=== PATIENT | male | born 1930 | race Caucasian/White ===

== ENCOUNTER 2018-07-09 11:35 | Emergency (ER) | payer MEDICARE ==
[2018-07-09] MEDS ORDERED: Albuterol/Ipratropium NEB.SOL* Albuterol 2.5 MG/Ipratropium 0.5 MG 3 ML INH ONE (11:49)
[2018-07-09 12:14] LABS: Hematocrit 47 % (42-52); Hemoglobin 15.4 g/dL (14.0-18.0); Mean Corpuscular HGB Conc 33 g/dL (31-36); Mean Corpuscular Hemoglobin 32 pg (27-31); Mean Corpuscular Volume 95 fL (80-94); Mean Platelet Volume 7.9 fL (7.4-10.4); Platelet Count 337 10^3/uL (150-450); Red Blood Count 4.89 10^6 /uL (4.18-5.48); Red Cell Distribution Width 14 % (10.5-15)
[2018-07-09 12:19] LABS: INR 1.05 (0.82-1.09)
[2018-07-09 12:34] LABS: Albumin 3.7 g/dL (3.2-5.2); Albumin/Globulin Ratio 1.2 (1-3); BUN/Creatinine Ratio 20.8 (8-20); C Reactive Protein 17.31 mg/L (<8.01); Calcium 9.8 mg/dL (8.6-10.3); EGFR African American 46.9 (>60); EGFR Non-African American 38.8 (>60); Globulin 3.2 g/dL (2-4); Potassium 4.4 mmol/L (3.5-5.0); Total Bilirubin 0.6 mg/dL (0.2-1.0); Total Protein 6.9 g/dL (6.4-8.9)
[2018-07-09 12:35] LABS: Troponin I 0.03 ng/mL (<0.04)
[2018-07-09 12:39] LABS: ABS Lymphocytes 0.6 10^3/ul (1.0-4.8); ABS Monocytes 0.3 10^3/ul (0-0.8); ABS Neutrophils 6.1 10^3/ul (1.5-7.7); Eosinophil % 0.3 %
--- NOTE | 2018-07-09 14:29 | ED ---
Shortness of Breath - HPI Summary HPI Summary: Patient is an 88-year-old male presenting to the ED with shortness of breath. He states he's been feeling this way for approximately 2 months. He had an appointment with Dr. Priest this afternoon, however was unable to make it into the room. EMS stated on arrival, he was outside with O2 in place. Patient had collapsed before walking into the office. He states he has been feeling short of breath for several months now. Denies hx of COPD, but has smoked x 65 years until 2 mos ago. States at rest, he denies SOB, but when ambulating, he is unable to walk more than a few steps. Denies CP. Denies abd pain, n/v/c/d. Denies DE OLIVEIRA, visual changes or appetite changes. PO intake good. - History of Current Complaint Chief Complaint: EDRespiratoryDistress Time Seen by Provider: 07/09/18 11:38 Hx Obtained From: Patient Onset/Duration: Sudden Onset Timing: Constant Current Severity: Severe Dyspnea At: Exertion Alleviating Factors: Oxygen - Risk Factors Pulmonary Embolism: Smoking Cardiac: Elevated lipids, Hypertension Pseudomonas: Negative Tuberculosis: Negative - Allergy/Home Medications Allergies/Adverse Reactions: Allergies Allergy/AdvReac Type Severity Reaction Status Date / Time No Known Allergies Allergy Verified 12/19/11 15:38 Home Medications: Home Medications Latanoprost 0.005%* [Xalatan 0.005%*] 1 drop BOTH EYES QPM 07/09/18 [History Confirmed 07/09/18] PMH/Surg Hx/FS Hx/Imm Hx Previously Healthy: Yes Endocrine/Hematology History: Denies: Hx Diabetes, Hx Thyroid Disease Cardiovascular History: Denies: Hx Congestive Heart Failure, Hx Hypertension Respiratory History: Reports: Hx Chronic Obstructive Pulmonary Disease (COPD) - He has smoked about 60 years up to 1ppd. Denies: Hx Asthma, Other Respiratory Problems/Disorders GI History: Denies: Hx Ulcer History: Reports: Hx Renal Disease, Other Problems/Disorders - prostatectomy Denies: Hx Dialysis Musculoskeletal History: Reports: Other Musculoskeletal History - BROKE BACK 50 YEARS AGO Sensory History: Reports: Hx Contacts or Glasses, Hx Glaucoma - ON MEDS Denies: Hx Hearing Aid Opthamlomology History: Reports: Hx Contacts or Glasses, Hx Glaucoma - ON MEDS Neurological History: Denies: Hx Dementia, Hx Migraine, Hx Seizures, Hx Transient Ischemic Attacks (TIA) Psychiatric History: Denies: Hx Anxiety, Hx Depression, Hx Schizophrenia, Hx Bipolar Disorder - Cancer History Cancer Type, Location and Year: prostate. neck area - removed - Surgical History Surgery Procedure, Year, and Place: [place] [facility] [place] [facility] [place] [facility] Hx Anesthesia Reactions: No - Immunization History Hx Pertussis Vaccination: No Immunizations Up to Date: Yes Infectious Disease History: No Infectious Disease History: Denies: Hx Hepatitis, Hx Human Immunodeficiency Virus (HIV), Traveled Outside the US in Last 30 Days - Social History Occupation: Unemployed Lives: With Family Alcohol Use: Rare Hx Substance Use: No Substance Use Type: Reports: None Hx Tobacco Use: Yes Smoking Status (MU): Current Every Day Smoker Amount Used/How Often: 1/2 ppd. Review of Systems Negative: Fever, Chills, Fatigue, Skin Diaphoresis Negative: Palpitations, Chest Pain Positive: Shortness Of Breath. Negative: Cough Genitourinary: Negative Positive: no symptoms reported, see HPI Negative: Arthralgia, Myalgia Skin: Negative All Other Systems Reviewed And Are Negative: Yes Physical Exam Triage Information Reviewed: Yes Vital Signs On Initial Exam: Initial Vitals Temp Pulse Resp BP Pulse Ox 97.6 F 102 20 123/95 98 07/09/18 11:44 07/09/18 11:44 07/09/18 11:44 07/09/18 11:44 07/09/18 11:44 Vital Signs Reviewed: Yes Appearance: Positive: Well-Appearing, Well-Nourished Skin: Positive: Skin Color Reflects Adequate Perfusion Head/Face: Positive: Normal Head/Face Inspection Neck: Positive: No Lymphadenopathy Respiratory/Lung Sounds: Positive: Decreased Breath Sounds Cardiovascular: Positive: Tachycardia Musculoskeletal: Positive: Strength/ROM Intact Neurological: Positive: Alert, Oriented to Person Place, Time Psychiatric: Positive: Normal Diagnostics - Vital Signs Vital Signs Temp Pulse Resp BP Pulse Ox 07/09/18 14:00 101 19 98 07/09/18 13:48 115 19 130/79 83 07/09/18 13:18 107 27 125/72 99 07/09/18 13:00 100 29 97 07/09/18 12:48 102 20 104/60 95 07/09/18 12:07 108 24 98 07/09/18 12:05 107 20 07/09/18 12:04 93 21 96 07/09/18 11:53 100 07/09/18 11:47 101 18 123/95 96 07/09/18 11:44 97.6 F 102 20 123/95 98 - Laboratory Lab Results: Lab Results 07/09/18 07/09/18 07/09/18 Range/Units 11:59 11:59 11:59 WBC 7.0 (3.5-10.8) 10^3/uL RBC 4.89 (4.18-5.48) 10^6 /uL Hgb 15.4 (14.0-18.0) g/dL Hct 47 (42-52) % MCV 95 H (80-94) fL MCH 32 H (27-31) pg MCHC 33 (31-36) g/dL RDW 14 (10.5-15) % Plt Count 337 (150-450) 10^3/uL MPV 7.9 (7.4-10.4) fL Neut % (Auto) 86.7 % Lymph % (Auto) 8.0 % [place] % (Auto) 4.8 % Eos % (Auto) 0.3 % Baso % (Auto) 0.2 % Absolute Neuts (auto) 6.1 (1.5-7.7) 10^3/ul Absolute Lymphs (auto) 0.6 L (1.0-4.8) 10^3/ul Absolute Monos (auto) 0.3 (0-0.8) 10^3/ul Absolute Eos (auto) 0.0 (0-0.6) 10^3/ul Absolute Basos (auto) 0.0 (0-0.2) 10^3/ul Absolute Nucleated RBC 0.0 10^3/ul Nucleated RBC % 0.0 INR (Anticoag Therapy) 1.05 (0.82-1.09) ABG pH (7.35-7.45) ABG pCO2 (35-45) mmHg ABG pO2 (80-100) mmHg ABG HCO3 (19-31) mmol/L ABG O2 Saturation (94.0-98.0) % ABG Base Excess (-2.0-2.0) mmol/L Sodium 142 (135-145) mmol/L Potassium 4.4 (3.5-5.0) mmol/L Chloride 106 (101-111) mmol/L Carbon Dioxide 26 (22-32) mmol/L Anion Gap 10 (2-11) mmol/L BUN 35 H (6-24) mg/dL Creatinine 1.68 H (0.67-1.17) mg/dL Est GFR ( Amer) 46.9 (>60) Est GFR (Non-Af Amer) 38.8 (>60) BUN/Creatinine Ratio 20.8 H (8-20) Glucose 110 H (70-100) mg/dL Lactic Acid (0.5-2.0) mmol/L Calcium 9.8 (8.6-10.3) mg/dL Total Bilirubin 0.60 (0.2-1.0) mg/dL AST 15 (13-39) U/L ALT 9 (7-52) U/L Alkaline Phosphatase 128 H (34-104) U/L Troponin I 0.03 (<0.04) ng/mL C-Reactive Protein 17.31 H (<8.01) mg/L Total Protein 6.9 (6.4-8.9) g/dL Albumin 3.7 (3.2-5.2) g/dL Globulin 3.2 (2-4) g/dL Albumin/Globulin Ratio 1.2 (1-3) 07/09/18 07/09/18 Range/Units 11:59 12:00 WBC (3.5-10.8) 10^3/uL RBC (4.18-5.48) 10^6 /uL Hgb (14.0-18.0) g/dL Hct (42-52) % MCV (80-94) fL MCH (27-31) pg MCHC (31-36) g/dL RDW (10.5-15) % Plt Count (150-450) 10^3/uL MPV (7.4-10.4) fL Neut % (Auto) % Lymph % (Auto) % [place] % (Auto) % Eos % (Auto) % Baso % (Auto) % Absolute Neuts (auto) (1.5-7.7) 10^3/ul Absolute Lymphs (auto) (1.0-4.8) 10^3/ul Absolute Monos (auto) (0-0.8) 10^3/ul Absolute Eos (auto) (0-0.6) 10^3/ul Absolute Basos (auto) (0-0.2) 10^3/ul Absolute Nucleated RBC 10^3/ul Nucleated RBC % INR (Anticoag Therapy) (0.82-1.09) ABG pH 7.37 (7.35-7.45) ABG pCO2 46 H (35-45) mmHg ABG pO2 64 L (80-100) mmHg ABG HCO3 25.4 (19-31) mmol/L ABG O2 Saturation 93.4 L (94.0-98.0) % ABG Base Excess 0.8 (-2.0-2.0) mmol/L Sodium (135-145) mmol/L Potassium (3.5-5.0) mmol/L Chloride (101-111) mmol/L Carbon Dioxide (22-32) mmol/L Anion Gap (2-11) mmol/L BUN (6-24) mg/dL Creatinine (0.67-1.17) mg/dL Est GFR ( Amer) (>60) Est GFR (Non-Af Amer) (>60) BUN/Creatinine Ratio (8-20) Glucose (70-100) mg/dL Lactic Acid 2.3 H* (0.5-2.0) mmol/L Calcium (8.6-10.3) mg/dL Total Bilirubin (0.2-1.0) mg/dL AST (13-39) U/L ALT (7-52) U/L Alkaline Phosphatase (34-104) U/L Troponin I (<0.04) ng/mL C-Reactive Protein (<8.01) mg/L Total Protein (6.4-8.9) g/dL Albumin (3.2-5.2) g/dL Globulin (2-4) g/dL Albumin/Globulin Ratio (1-3) Result Diagrams: 07/09/18 11:59 07/09/18 11:59 Lab Statement: Any lab studies that have been ordered have been reviewed, and results considered in the medical decision making process. Course/Dx - Course Course Of Treatment: During the course, the patient is evaluated for SOB. He appears SOB and cachetic. VS 92, 22 resp, 98% on RA, 136/75. On ambulation, patient drops to 86% within 5-6 steps and is unable to continue. Labs WNL. Discussed with the patient he will need to be admitted for O2 demand. He declines. He states he will sign out AMA. Discussed with patient at length the severity of his SOB. He continues to decline and AMA paperwork is signed. Called Dr. Muhammad (PCP) to request an O2 tank and evalution of need. He states his office will take care of this. - Diagnoses Provider Diagnoses: Shortness of breath Discharge - Sign-Out/Discharge Documenting (check all that apply): Patient Departure Patient Received Moderate/Deep Sedation with Procedure: No - Discharge Plan Condition: Fair Disposition: AGAINST MEDICAL ADVICE Referrals: David Priest MD [Primary Care Provider] - - Billing Disposition and Condition Condition: FAIR Disposition: Against Medical Advice
[2018-07-09 15:19] VITALS: BP 125/76
== END 2018-07-09 15:15 | disposition left against medical advice (07) ==
LOC: ED 11:35
DX: J44.1 Chronic obstructive pulmonary disease with (acute) exacerbation (principal); F17.210 Nicotine dependence, cigarettes, uncomplicated; R94.31 Abnormal electrocardiogram [ECG] [EKG]
CPT/HCPCS: 36415; 71045; 80053; 82803; 83605; 84153; 84484; 85025; 85610; 86140; 87040; 93005; 99283; A9270-GY; G0103

== ENCOUNTER 2018-07-09 15:51 | Inpatient (IN) | payer MEDICARE ==
[2018-07-09] MEDS ORDERED: NS 0.9% 1000 ML** 1,000 ML IV ONE (16:55)
[2018-07-09] MEDS ORDERED: Albuterol HFA INHALER* 8 gm MDI INH PRN (17:57)
[2018-07-09] MEDS ORDERED: Albuterol/Ipratropium NEB.SOL* Albuterol 2.5 MG/Ipratropium 0.5 MG 3 ML INH PRN (17:58)
[2018-07-09] MEDS ORDERED: Enoxaparin(*) 40 MG/0.4 ML SYR SUBCUT SCH (18:00)
[2018-07-09] MEDS ORDERED: Iodixanol* (CONTRAST) 320 MG/ML 100 ML SDV IV ONE (18:17)
--- NOTE | 2018-07-09 18:19 | ED ---
Shortness of Breath - HPI Summary HPI Summary: Patient is an 88 year old male [facility] with a chief complaint of SOB on exertion. The pt was previously at [facility] today for SOB and was discharged per refusal to be admitted. He returned to [facility] later today claiming that he was hypoxic on ambulation and needed to be admitted to [facility]. Pt states that he also has back pain. Pt denies CP. The pt reports that he has no alleviating factors. Pt has a history of COPD and has smoked for 60 years up to 1 ppd. - History of Current Complaint Chief Complaint: EDShortnessOfBreath Hx Obtained From: Patient Onset/Duration: Sudden Onset, Lasting Hours Timing: Constant Current Severity: Severe Dyspnea At: Exertion - ambulation Aggrevating Factors: Movement Alleviating Factors: Nothing Associated Signs & Symptoms: Negative - Chest pain Related History: Similar Episode - previous visit on 07/09/18 - Allergy/Home Medications Allergies/Adverse Reactions: Allergies Allergy/AdvReac Type Severity Reaction Status Date / Time No Known Allergies Allergy Verified 12/19/11 15:38 PMH/Surg Hx/FS Hx/Imm Hx Previously Healthy: No Endocrine/Hematology History: Denies: Hx Diabetes, Hx Thyroid Disease Cardiovascular History: Denies: Hx Congestive Heart Failure, Hx Hypertension Respiratory History: Reports: Hx Chronic Obstructive Pulmonary Disease (COPD) - He has smoked about 60 years up to 1ppd. Denies: Hx Asthma, Other Respiratory Problems/Disorders GI History: Denies: Hx Ulcer History: Reports: Hx Renal Disease, Other Problems/Disorders - prostatectomy Denies: Hx Dialysis Musculoskeletal History: Reports: Other Musculoskeletal History - BROKE BACK 50 YEARS AGO Sensory History: Reports: Hx Contacts or Glasses, Hx Glaucoma - ON MEDS Denies: Hx Hearing Aid Opthamlomology History: Reports: Hx Contacts or Glasses, Hx Glaucoma - ON MEDS Neurological History: Denies: Hx Dementia, Hx Migraine, Hx Seizures, Hx Transient Ischemic Attacks (TIA) Psychiatric History: Denies: Hx Anxiety, Hx Depression, Hx Schizophrenia, Hx Bipolar Disorder - Cancer History Cancer Type, Location and Year: prostate. neck area - removed - Surgical History Surgery Procedure, Year, and Place: LEFT NEPHRECTOMY, , [facility] [place]. CYST FROM NECK, 2004, [facility]. BOWEL OBSTRUCTION, [facility] Hx Anesthesia Reactions: No Infectious Disease History: No Infectious Disease History: Denies: Hx Hepatitis, Hx Human Immunodeficiency Virus (HIV), Traveled Outside the [place] in Last 30 Days - Social History Alcohol Use: Rare Hx Substance Use: No Substance Use Type: Reports: None Hx Tobacco Use: Yes Smoking Status (MU): Former Smoker Amount Used/How Often: 1/2 ppd. Review of Systems Negative: Chest Pain Positive: Shortness Of Breath All Other Systems Reviewed And Are Negative: Yes Physical Exam - Summary Physical Exam Summary: Constitutional: Well-developed, Well-nourished, Alert. (-) Distressed Skin: Warm, Dry, Pressure ulcers on spine stage 2 HENT: Normocephalic; Atraumatic Eyes: Conjunctiva normal Neck: Musculoskeletal ROM normal neck. (-) JVD, (-) Stridor, (-) Tracheal deviation Cardio: Rhythm regular, rate normal, Heart sounds normal; Intact distal pulses; The pedal pulses are 2+ and symmetric. Radial pulses are 2+ and symmetric. (-) Murmur Pulmonary/Chest wall: Effort normal. (-) Respiratory distress, (-) Wheezes, (-) Rales, Lungs are clear to auscultation Abd: Soft, (-) tenderness, (-) Distension, (-) Guarding, (-) Rebound Musculoskeletal: (-) Edema Lymph: (-) Cervical adenopathy Neuro: Alert, Oriented x3 Psych: Cachectic Triage Information Reviewed: Yes Vital Signs On Initial Exam: Initial Vitals Temp Pulse Resp BP Pulse Ox 97.7 F 125 18 88/42 100 07/09/18 16:01 07/09/18 16:01 07/09/18 16:01 07/09/18 16:01 07/09/18 16:01 Vital Signs Reviewed: Yes Diagnostics - Vital Signs Vital Signs Temp Pulse Resp BP Pulse Ox 07/09/18 17:49 91 16 94 07/09/18 17:33 102 21 109/62 94 07/09/18 17:25 108 36 93 07/09/18 17:03 96 56 105/67 100 07/09/18 16:55 100 16 98 07/09/18 16:33 104 58 99/58 100 07/09/18 16:25 100 21 100 07/09/18 16:01 97.7 F 125 18 88/42 100 - Laboratory Lab Statement: Any lab studies that have been ordered have been reviewed, and results considered in the medical decision making process. Course/Dx - Course Course Of Treatment: Patient is an 88 year old male presenting to [facility] with a chief complaint of SOB on exertion. The pt was previously at [facility] today for SOB and was discharged per refusal to be admitted. He returned to [facility] later today claiming that he was hypoxic on ambulation and needed to be admitted to [facility]. The pt received the following medications: sodium chloride 1000 mls. Pt will be admitted to [facility] with a Dx of COPD exacerbation and failure to thrive. - Diagnoses Provider Diagnoses: COPD exacerbation, Failure to thrive Discharge - Sign-Out/Discharge Documenting (check all that apply): Patient Departure - admit Patient Received Moderate/Deep Sedation with Procedure: No - Discharge Plan Condition: Stable Disposition: ADMITTED TO [facility] - Billing Disposition and Condition Condition: STABLE Disposition: Admitted to [facility] - Attestation Statements Document Initiated by Huhg: Yes Documenting Scribe: Andi Montgomery Provider For Whom Hugh is Documenting (Include Credential): Maria Luz Wilson MD Scribe Attestation: Andi Jurado scribed for Maria Luz Mohr MD on 07/09/18 at 1831. Scribe Documentation Reviewed: Yes Provider Attestation: The documentation as recorded by the Andi antonio accurately reflects the service I personally performed and the decisions made by , Maria Luz Mohr MD Status of Scribe Document: Viewed
--- NOTE | 2018-07-09 19:18 | HP ---
CC: Dr. Priest; Dr. Prather; Dr. Casas* HISTORY AND PHYSICAL: DATE OF ADMISSION: 07/09/18 PRIMARY CARE PROVIDER: Dr. Priest. OTHER PROVIDERS: Dr. Prather, Dr. Casas. ATTENDING PHYSICIAN: Dr. Chen* (dictated by KAYLA Mcclellan). CHIEF COMPLAINT: Shortness of breath, sent from PCP. HISTORY OF PRESENT ILLNESS: Mr. Sherman is an 88-year-old male with a past medical history of COPD, chronic kidney disease, history of renal cell carcinoma , history of prostate cancer, who presented to the ER today with shortness of breath. He notes that he typically has shortness of breath, but today he has had impacted activity due to shortness of breath. He states he can only walk with assistance or support. He is noted to desaturate with ambulation. He denies loss of consciousness, but continues to complain of shortness of breath. He notes that shortness of breath is the only element that is limiting his activity. Typically, he requires no oxygen. The patient also notes possible weight loss of approximately 10 pounds in the last approximately 3 weeks. He also notes pain in the low back. He denies chest pain, abdominal pain, pain in the extremities. He denies recent fall. He denies hemoptysis, cough, hematuria , hematochezia, melena. He denies fever. He denies dysphagia. While in the emergency department, the patient received DuoNeb and 1 L bolus of normal saline. The hospitalist team was asked to evaluate the patient for admission. PAST MEDICAL HISTORY: 1. COPD. 2. Chronic kidney disease, stage 3. 3. History of renal cell carcinoma, status post nephrectomy, splenectomy, left eleventh rib removal - the patient follows with Dr. Prather. 4. History of prostate cancer, status post prostatectomy - the patient follows with Dr. Prather. 5. Glaucoma. PAST SURGICAL HISTORY: Left kidney, splenectomy, left eleventh rib in 2012; left neck cyst in 2013. HOME MEDICATIONS: 1. Albuterol HFA inhaler 2 puffs inhalation q.4 hours p.r.n. shortness of breath/wheeze. 2. Latanoprost 0.005% one drop to both eyes q.p.m. 3. Multivitamin/minerals 1 tab p.o. daily. 4. Pilocarpine 5 mg p.o. t.i.d. 5. Travoprost Z 0.004% ophthalmic 1 drop to both eyes daily. The patient uses either latanoprost or travoprost depending on what is available. DRUG ALLERGIES: No known drug allergies. FAMILY HISTORY: Negative for heart disease, diabetes mellitus, CVA, cancer. SOCIAL HISTORY: The patient states that he quit smoking 3 to 4 months ago. Prior to that, he smoked approximately half-a-pack a day for 68 years. He rarely uses alcohol, last used New Year's Melanie. 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 He lives alone. In the event that he is unable to make his own medical decisions, he has appointed his friend, Maxim Rivas, to be his surrogate decision maker. REVIEW OF SYSTEMS: A 10-point review of systems was performed and all the pertinent positives and negatives are in the HPI. All other systems are negative. PHYSICAL EXAMINATION GENERAL: Mr. Sherman is a thin, cachectic looking, 88-year-old elderly white male , who is sitting up in bed. He is very thin with a BMI of 15.3. He appears chronically ill. VITAL SIGNS: Temperature 97.7 temporal, heart rate 83, respiratory rate 16, oxygen saturation 94% on room air, blood pressure 109/62. HEENT: PERRL. EOMI. Sclerae are anicteric. Hearing is grossly intact. Oral mucous membranes are dry. There are no lesions in the pharynx or oral mucosa. NECK: No lymphadenopathy. RESPIRATORY: Symmetrical chest expansion without use of accessory muscles. Lung escobar somewhat diminished. There are no wheezes, rhonchi, or rales. CARDIOVASCULAR: Regular rate and rhythm with S1, S2 present. There are no murmurs, rubs, clicks, or gallops. There is no JVD. ABDOMEN: Flat. The patient is very thin. Bowel sounds noted in all quadrants. Abdomen is soft and nontender to palpation. There is no hepatosplenomegaly. MUSCULOSKELETAL: Full range of motion noted. The spinous processes are protruding. They are erythematous due to pressure. There appears to be some breakdown on one of the lumbar spinous processes without opening or discharge. EXTREMITIES: Skin is dry. There is no clubbing. Distal digits are cyanotic. Radial and pedal pulses are palpable. NEURO: The patient is awake. He is alert and oriented x3. He is able to move all of his extremities. DIAGNOSTIC STUDIES/LAB DATA: Chest x-ray, 07/09/18, impression: Hyperinflated lung escobar with progressive chronic interstitial disease and likely bronchiectasis. Laboratory Data: ABG, pO2 of 64. BUN 35, creatinine 1.68, GFR 38.8, lactic acid 2.3. Alk phos 128. ASSESSMENT AND PLAN: Mr. Sherman is an 88-year-old male with a past medical history of renal and prostate cancer, chronic obstructive pulmonary disease, chronic kidney disease, who presents to the ER today with complaints of worsening shortness of breath starting today. The patient will be admitted to observation for: 1. Shortness of breath. The patient notes shortness of breath particularly with activity starting today. He was sent from his primary care provider's office. He does have a history of chronic obstructive pulmonary disease. His breath sounds are clear, although diminished. There is a question whether or not the patient has a pulmonary embolism. The patient will be given Mucomyst for nephro protection prior to CTA of the chest. DuoNebs have been ordered. 2. History of cancer. The patient follows up with Dr. Prather. He notes that his last followup was approximately 4 months ago. We will check a PSA today. 3. Glaucoma. Continue eye drops and pilocarpine. 4. Code status: Full code. 5. FEN: Regular diet. IV fluids at 125 cc per hour. 6. Tobacco abuse. The patient notes that he recently quit using tobacco approximately 3 to 4 months ago. He requests nicotine patches. These will be ordered. 7. DVT prophylaxis: According to the DVT Risk Assessment, the patient scores 3 and is placed at high risk. He will be placed on heparin q.12 hours. TIME SPENT: Approximately 60 minutes was spent on this admission, greater than half that time was spent with the patient obtaining history, performing physical , and reviewing the plan of care. The case has been reviewed with my attending, Dr. Chen, who is in agreement with the plan of care. KAYLA JOHNSON [id number]/[facility] #: [id number] CAR[place]
[2018-07-09] MEDS: Acetylcysteine CAP (RENAL)* 600 MG PO SCH ×2 (20:03→22:51)
[2018-07-09] MEDS: Heparin VIAL(*) 5000 UNITS/ML VIAL (FIVE THOUSAND) SUBCUT SCH (20:13)
[2018-07-09] MEDS: Nicotine PATCH 21 MG/24 HR* PATCH TRANSDERM SCH (20:13)
[2018-07-09] MEDS: PILOCARPINE 5 MG PO SCH (23:03)
[2018-07-09] MEDS: Latanoprost 0.005%* 2.5 ml BTL BOTH EYES SCH (23:04)
[2018-07-10 05:49] LABS: BUN/Creatinine Ratio 23.8 (8-20); Calcium 8.8 mg/dL (8.6-10.3); EGFR African American 45.6 (>60); EGFR Non-African American 37.7 (>60); Potassium 4.5 mmol/L (3.5-5.0)
[2018-07-10] MEDS: Nicotine Patch Removal NOTE PATCH OFF SCH ×2 (05:54→21:25)
--- NOTE | 2018-07-10 07:23 | PN ---
Subjective Date of Service: 07/10/18 Interval History: Resting in bed on assessment with 2L supplemental oxygen in place. Occasional moist cough noted. Reports shortness of breath with rest and exertion. Reports talking also makes him sob, but if he takes it slow he can tolerated it well. Reports occasional productive cough with clear sputum. Denies cp, palpitations, fever, chills. Objective Active Medications: Acetylcysteine (Acetylcysteine Cap (Renal)*) 1,200 mg PO BID [facility] Stop: 07/11/18 21:01 Albuterol (Ventolin Hfa Inhaler*) 2 puff INH Q4H PRN PRN Reason: SOB/WHEEZING Albuterol/Ipratropium (Duoneb (Albuterol 2.5 Mg/Ipratropium 0.5 Mg)) 1 neb INH Q4H PRN PRN Reason: SOB/WHEEZING Heparin Sodium (Porcine) (Heparin Vial(*)) 5,000 units SUBCUT Q12HR [facility] Last Admin: 07/09/18 20:13 Dose: 5,000 units Latanoprost (Xalatan 0.005%*) 1 drop BOTH EYES QPM [facility] Last Admin: 07/09/18 23:04 Dose: 1 drop Multivitamins/Minerals (Theragran/Minerals Tab*) 1 tab PO DAILY [facility] Nicotine (Nicotine Patch 21 Mg/24 Hr*) 1 patch TRANSDERM DAILY [facility] Last Admin: 07/09/18 20:13 Dose: 1 patch Pharmacy Profile Note (Nicotine Patch Removal Note*) 1 note PATCH OFF 2100 [facility] Last Admin: 07/10/18 05:54 Dose: 1 note Pilocarpine HCl (Salagen(Nf)) 5 mg PO TID [facility]; Protocol Last Admin: 07/09/18 23:03 Dose: Not Given Vital Signs - 8 hr 07/10/18 03:45 Temperature 97.7 F Pulse Rate 114 Respiratory 22 Rate Blood Pressure 151/61 (mmHg) O2 Sat by Pulse 90 Oximetry Oxygen Devices in Use Now: Nasal Cannula Appearance: Comfortable, NAD Eyes: No Scleral Icterus Ears/Nose/Mouth/Throat: Clear Oropharnyx, Mucous Membranes Moist Neck: NL Appearance and Movements; NL JVP Respiratory: Symmetrical Chest Expansion and Respiratory Effort, - - Moderately diminished Cardiovascular: NL Sounds; No Murmurs; No JVD, RRR, No Edema Abdominal: NL Sounds; No Tenderness; No Distention Lymphatic: No Cervical Adenopathy Skin: No Rash or Ulcers Neurological: Alert and Oriented x 3 Nutrition: Taking PO's Result Diagrams: 07/10/18 07:41 07/10/18 05:28 Additional Lab and Data: Laboratory Results - last 24 hr 07/10/18 07/10/18 07/10/18 05:28 05:28 07:41 WBC 13.0 H RBC 4.28 Hgb 13.1 L Hct 40 L MCV 93 MCH 31 MCHC 33 RDW 14 Plt Count 291 MPV 7.9 Neut % (Auto) 91.3 Lymph % (Auto) 3.0 Mckean % (Auto) 5.4 Eos % (Auto) 0.0 Baso % (Auto) 0.3 Absolute Neuts (auto) 11.8 H Absolute Lymphs (auto) 0.4 L Absolute Monos (auto) 0.7 Absolute Eos (auto) 0.0 Absolute Basos (auto) 0.0 Absolute Nucleated RBC 0.0 Nucleated RBC % 0.0 Sodium 140 Potassium 4.5 Chloride 108 Carbon Dioxide 24 Anion Gap 8 BUN 41 H Creatinine 1.72 H Est GFR ( Amer) 45.6 Est GFR (Non-Af Amer) 37.7 BUN/Creatinine Ratio 23.8 H Glucose 82 Lactic Acid 0.7 Calcium 8.8 Microbiology and Other Data: . Assess/Plan/Problems-Billing Assessment: - Patient Problems (1) COPD exacerbation Comment: - Emphysema noted on CTA - Known COPD hx - Nebulizers schedule for while awake - Prednisone 40 mg started today. 5 days. - Azithromycin added for anti-inflammatory properties - Flutter valve (2) Acute hypoxemic respiratory failure Comment: - Requiring 2L NC to maintain saturation above 90% (3) Lung nodules Comment: - Enlarging left upper and new superior lingular spiculated nodules in lung - Oncology consulting (4) Acute on chronic kidney failure Comment: - Known CKD - Creatinine 1.72 which is above previous baseline of 1.38 documented on 04/10/16 - Could be new baseline or acute on chronic. - Gentle IVF hydration (5) Swallowing difficulty Comment: - Nursing noted some swallowing difficulties. - Speech Therapy evaluated and recommended soft diet, nector thick liquids, and crushed medications. - Patient would benefit from outpatient follow up with ENT and/or GI (6) DVT prophylaxis Comment: - SQ heparin (7) Full code status Status and Disposition: Discharge home when medically stable. Attending: Norma Moody
[2018-07-10 08:06] LABS: ABS Lymphocytes 0.4 10^3/ul (1.0-4.8); ABS Monocytes 0.7 10^3/ul (0-0.8); ABS Neutrophils 11.8 10^3/ul (1.5-7.7); Hematocrit 40 % (42-52); Hemoglobin 13.1 g/dL (14.0-18.0); Mean Corpuscular HGB Conc 33 g/dL (31-36); Mean Corpuscular Hemoglobin 31 pg (27-31); Mean Corpuscular Volume 93 fL (80-94); Mean Platelet Volume 7.9 fL (7.4-10.4); Platelet Count 291 10^3/uL (150-450); Red Blood Count 4.28 10^6 /uL (4.18-5.48); Red Cell Distribution Width 14 % (10.5-15)
[2018-07-10] MEDS ORDERED: Travoprost Z 0.004% OPHTH (NF) 2.5 ML BTL BOTH EYES SCH (09:00)
[2018-07-10] MEDS: Multivitamins/Minerals TAB PO SCH (09:01)
[2018-07-10] MEDS: Acetylcysteine CAP (RENAL)* 600 MG PO SCH ×2 (09:01→21:24)
[2018-07-10] MEDS: Heparin VIAL(*) 5000 UNITS/ML VIAL (FIVE THOUSAND) SUBCUT SCH ×2 (09:02→21:24)
[2018-07-10] MEDS: PILOCARPINE 5 MG PO SCH ×3 (09:04→21:25)
[2018-07-10] MEDS: Nicotine PATCH 21 MG/24 HR* PATCH TRANSDERM SCH ×2 (09:04→21:48)
[2018-07-10] MEDS ORDERED: Azithromycin 500 mg/250 ml NS 500 MG/250 ML BAG IVPB ONE (10:30)
[2018-07-10] MEDS: Albuterol/Ipratropium NEB.SOL* Albuterol 2.5 MG/Ipratropium 0.5 MG 3 ML INH SCH ×6 (10:42→22:45)
[2018-07-10] MEDS: predniSONE TAB* 20 MG PO SCH (12:44)
[2018-07-10] MEDS ORDERED: NS 0.9% 1000 ML** 1,000 ML IV SCH (18:00)
[2018-07-10] MEDS: Latanoprost 0.005%* 2.5 ml BTL BOTH EYES SCH (21:25)
--- NOTE | 2018-07-10 23:05 | CONS ---
CC: Dr. Priest; Dr. Prather; Dr. Gamble* MEDICAL ONCOLOGY CONSULTATION NOTE: DATE OF ADMISSION: 07/10/18 DATE OF CONSULT: 07/10/18 REASON FOR CONSULT: History of multiple previous cancers and new abnormalities on chest CT consistent with active malignancy. HISTORY OF PRESENT ILLNESS: Mr. 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 He reports that he became short of breath over a 2 to 3 day period prior to coming to the hospital. Associated with this , he had some cough, productive of clear sputum and dryness in the throat. He has 11 steps to get into his house and reports he had no issues with this until just several days prior to admission. He currently is requiring assistance for ambulation. He has not been using oxygen at home. The patient states that his chronic adult weight was 125 pounds and is currently on 86 pounds despite having previously been 6 feet tall and currently being closed to that height. He reports a weight loss over the past year of approximately 15 pounds, much of which he attributes to dental issues. He denies any headaches, any other neurologic complaints or falls. He denies any chest or abdominal pain. He does not have any fever, sweats, chills. In the emergency room, a CT scan was performed of the chest. This revealed 2 spiculated nodules in the left lung field. A larger of which measures 2.4 cm and on a previous CT in 2016, even though it was not called at that time, it was approximately 9 mm. His second spiculated nodule in the superior portion of the lingula measures 1.4 cm. In addition, there are tree in bud nodules throughout the right lower lung field along with infiltrate/atelectasis at the bases. No adenopathy is noted. No significant bony lesions are noted. PAST MEDICAL HISTORY: 1. Prostate cancer in 1996, status post prostatectomy with Dr. Prather. Somewhere as before 2010, the patient developed rising PSA. He did receive 1 injection of Lupron. Most recently, PSA has again been rising over the past 3 years, having gone from 12 in 2014 down to 0.028 with a Lupron and then steadily rising up to 9.1 this admission. 2. History of renal cell cancer, status post nephrectomy in 2002. Junior grade 3/4, T2NxMx. 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 3. In 2002 as well adenopathy in the left neck with suspicious cells and subsequently had left neck dissection. Slides were sent from [place] to an outside lab for review and was read as an epithelial neoplasm in the lymph nodes. He received a course of radiation therapy in [place], at that time the radiation was not available in [place]. In 2005, a PET scan was performed and revealed slightly increased SUV in the nasopharynx and at the site of the previous resection. No subsequent imaging and no subsequent adenopathy or symptoms. 4. COPD. 5. Chronic kidney disease. 6. Chronically elevated platelet counts, for which he was seen in consultation by Dr. Cross in 2012. At which point, JAK2 was done and was negative. I had previously seen the patient in 2002 and 2003 after his original diagnosis of renal cell cancer and of epithelial neck cancer. 7. Chronic kidney disease. 8. Glaucoma. 9. Left neck cyst in 2013. MEDICATIONS: Prior to admission: 1. Albuterol 2 puffs q.4 hours p.r.n. 2. Latanoprost 1 drop to each eye daily. 3. Pilocarpine 5 mg t.i.d. 4. Travoprost ophthalmic 1 drop both eyes daily. ALLERGIES: None. FAMILY HISTORY: Noncontributory. SOCIAL HISTORY: The patient lives alone. He smoked 1/2 to 3/4 of pack of cigarettes per day for 68 years, quitting in February of this year. Rare alcohol. 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 Lives alone in his own home. His surrogate decision maker had previously been his metal painter, but currently is his friend, Juan Manuel Rivas. He wishes to be full code at the present time. REVIEW OF SYSTEMS: As discussed above. Significant weight loss. Significant shortness of breath. No neurologic symptoms. No significant changes in bowel or bladder habits. No major bruising or bleeding. PHYSICAL EXAM: An 88-year-old male who appears extremely cachectic and thin. BMI is 15. Vital Signs: Blood pressure 108/67, pulse 88, afebrile. HEENT: PERRL, EOMI. No erythema or exudates. No scleral icterus. Neck: No palpable adenopathy, status post left neck dissection. Lymph Nodes: No palpable cervical, supraclavicular, axillary, or inguinal adenopathy. Heart: Regular rate and rhythm without murmurs, rubs, or gallops. Lungs: Clear, occasional wheeze. Abdomen: Extremely scaphoid. Normoactive bowel sounds. No masses or organomegaly. Extremities: No edema. Neurologic Exam: The patient moves all extremities symmetrically. Cranial nerves III through XII are intact. The patient is alert and oriented x3. DIAGNOSTIC STUDIES/LAB DATA: Chest CT as discussed above. Laboratory studies: CBC: White count 13,000, H and H 40/13.1, platelet count 291,000. Chemistry studies: Sodium 140, potassium 4.5, chloride 108, bicarb 24, BUN 41 with a creatinine of 1.72 which is slightly higher than his baseline of approximately 1.3. PSA 9.2. Liver function test within normal limits. IMPRESSION AND PLAN: An 88-year-old male with history of Junior 3/4 T2N0M0 renal cell carcinoma, resected in 2002. 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 History of prostate cancer, status post prostatectomy with subsequent rise in PSA and treated once with Lupron and now again rising PSA up to 9. He has no known metastatic disease, this seems to be a biochemical only recurrence, although he has not been fully worked up for this. On the current chest CT, no bony lesions are noted. The patient now presents with symptoms consistent with upper respiratory/lower respiratory infection. He does not have a pulmonary embolism. He has been treated with antibiotics. On the chest CT, incidental found are 2 spiculated lung lesions, one of which was present in retrospect in 2016 and has grown from under a centimeter up to approximately 3 cm. The other is new since 2016. Since neither of these lesions are large, none of them are near the pleura and none of the involved lymph nodes, it is unlikely they are contributing to his current symptoms. His current symptoms seem most likely infectious. He should continue to be treated with antibiotics. I had a long a jeffery discussion with the patient that at his age and with his current BMI and other underlying medical conditions that there is very little in the way of malignancies, affecting the lung that could possibly be treatable. This appears more likely the primary lung lesions given the spiculated nature of these nodules. If that is the case, it would be reasonable in 3 months to repeat [address] and determine rate of growth. Unless these lesions are incredibly rapidly growing, there would be no role for any therapy. On the other hand, if these lesions were somewhat atypical in terms of having spiculated edges, but did represent metastatic carcinoma, it certainly would be treatable if this was metastatic prostate cancer with the use of medications likely Zytiga or Xgeva. If this was to be metastatic renal cell carcinoma, there would be some consideration for treatment with immunotherapy. If this was metastatic head and neck cancer, it is extremely unlikely that he would tolerate much in the way of therapy. At the present time, I would not recommend having a lung biopsy. There was no other location to biopsy. If he were to worsen in terms of symptoms unrelated to his current infection or if he were to have progressive outpatient symptoms over the next several months, further workup could be obtained. [id number]/CPS #: [id number] [facility] HOSPITALHeather
[2018-07-11] MEDS: Albuterol/Ipratropium NEB.SOL* Albuterol 2.5 MG/Ipratropium 0.5 MG 3 ML INH SCH ×4 (02:59→19:24)
[2018-07-11 07:05] LABS: BUN/Creatinine Ratio 25.2 (8-20); Calcium 8.8 mg/dL (8.6-10.3); EGFR African American 58.4 (>60); EGFR Non-African American 48.2 (>60)
[2018-07-11 07:08] LABS: ABS Lymphocytes 0.2 10^3/ul (1.0-4.8); ABS Monocytes 0.6 10^3/ul (0-0.8); Hematocrit 36 % (42-52); Hemoglobin 11.9 g/dL (14.0-18.0); Lymphocyte % 1.8 %; Mean Corpuscular HGB Conc 33 g/dL (31-36); Mean Corpuscular Hemoglobin 31 pg (27-31); Mean Corpuscular Volume 94 fL (80-94); Mean Platelet Volume 8.4 fL (7.4-10.4); Platelet Count 278 10^3/uL (150-450); Red Blood Count 3.84 10^6 /uL (4.18-5.48); Red Cell Distribution Width 14 % (10.5-15); White Blood Count 12.8 10^3/uL (3.5-10.8)
[2018-07-11] MEDS: Azithromycin IV(*) 250 MG in NS 0.9% 250 ML* 250 ML IVPB SCH (10:18)
[2018-07-11] MEDS: Acetylcysteine CAP (RENAL)* 600 MG PO SCH ×2 (10:24→22:18)
[2018-07-11] MEDS: Heparin VIAL(*) 5000 UNITS/ML VIAL (FIVE THOUSAND) SUBCUT SCH ×2 (10:24→22:20)
[2018-07-11] MEDS: Multivitamins/Minerals TAB PO SCH (10:24)
[2018-07-11] MEDS: predniSONE TAB* 20 MG PO SCH (10:24)
[2018-07-11] MEDS: Nicotine Patch Removal NOTE PATCH OFF SCH (10:28)
[2018-07-11] MEDS: PILOCARPINE 5 MG PO SCH ×3 (10:28→22:21)
--- NOTE | 2018-07-11 15:49 | PN ---
Subjective Date of Service: 07/11/18 Interval History: Resting in bed. Reports he breathing has improved somewhat today. Reports he was able to ambulate to the hallway which is progress for him. Continues to have occasional productive cough with clear sputum. Denies fever, chills, cp. Objective Active Medications: Acetylcysteine (Acetylcysteine Cap (Renal)*) 1,200 mg PO BID [facility] Stop: 07/11/18 21:01 Last Admin: 07/11/18 10:24 Dose: 1,200 mg Albuterol (Ventolin Hfa Inhaler*) 2 puff INH Q4H PRN PRN Reason: SOB/WHEEZING Albuterol/Ipratropium (Duoneb (Albuterol 2.5 Mg/Ipratropium 0.5 Mg)) 1 neb INH [id number] AWAKE [facility] Last Admin: 07/11/18 13:58 Dose: 1 neb Heparin Sodium (Porcine) (Heparin Vial(*)) 5,000 units SUBCUT Q12HR [facility] Last Admin: 07/11/18 10:24 Dose: 5,000 units Azithromycin 250 mg/ Sodium (Chloride) 250 mls @ 250 mls/hr IVPB Q24H [facility] Stop: 07/14/18 10:59 Last Admin: 07/11/18 10:18 Dose: 250 mls/hr Latanoprost (Xalatan 0.005%*) 1 drop BOTH EYES QPM [facility] Last Admin: 07/10/18 21:25 Dose: 1 drop Multivitamins/Minerals (Theragran/Minerals Tab*) 1 tab PO DAILY [facility] Last Admin: 07/11/18 10:24 Dose: 1 tab Nicotine (Nicotine Patch 21 Mg/24 Hr*) 1 patch TRANSDERM BEDTIME [facility] Last Admin: 07/10/18 21:48 Dose: 1 patch Pharmacy Profile Note (Nicotine Patch Removal Note*) 1 note PATCH OFF 0900 [facility] Last Admin: 07/11/18 10:28 Dose: Not Given Pilocarpine HCl (Salagen(Nf)) 5 mg PO TID [facility]; Protocol Last Admin: 07/11/18 12:41 Dose: Not Given Prednisone (Deltasone Tab*) 40 mg PO DAILY [facility] Last Admin: 07/11/18 10:24 Dose: 40 mg Vital Signs - 8 hr 07/11/18 14:00 Pulse Rate 87 Respiratory 18 Rate O2 Sat by Pulse 96 Oximetry Oxygen Devices in Use Now: Nasal Cannula Appearance: Comfortable, NAD Eyes: No Scleral Icterus Ears/Nose/Mouth/Throat: Clear Oropharnyx, Mucous Membranes Moist Neck: NL Appearance and Movements; NL JVP Respiratory: - - Mild dyspnea noted with talking. Lungs continued to be diminish , but slight improved from yesterday. Cardiovascular: NL Sounds; No Murmurs; No JVD, No Edema Abdominal: NL Sounds; No Tenderness; No Distention Lymphatic: No Cervical Adenopathy Extremities: No Clubbing, Cyanosis Skin: No Rash or Ulcers Neurological: Alert and Oriented x 3 Nutrition: Taking PO's - Nutrition: Malnutrition Diagnosis/Plan Malnutrition Assessment by Registered Dietitian: Malnutrition Assessment Clinical Characteristics Acute,Severe Malnutrition Assessment: inadequate oral intake: <or= 50% of EEE x > 5 Criteria days severe wt loss: 10.5% x 3 weeks to 22.7% x several months evidence of muscle/fat wasting: moderate-severe temporal and clavicle wasting Malnutrition Assessment: suggest liberalizing to REGULAR diet given Interventions severe wt loss, underwt status Ensure Enlive with meals per d/w pt: 350 kcals, 20 g pro per serving Malnutrition Assessment: Goals 1. Intake will improve to at least 50% of meals 2. Intake at meals + supplementation will be adequate to promote wt gain, preserve lean body mass 3. Cr will improve 4. Adequate glycemic control in setting of steroid tx Result Diagrams: 07/11/18 06:25 07/11/18 06:25 Additional Lab and Data: Laboratory Results - last 24 hr 07/11/18 07/11/18 06:25 06:25 WBC 12.8 H RBC 3.84 L Hgb 11.9 L Hct 36 L MCV 94 MCH 31 MCHC 33 RDW 14 Plt Count 278 MPV 8.4 Neut % (Auto) 93.3 Lymph % (Auto) 1.8 [place] % (Auto) 4.7 Eos % (Auto) 0.0 Baso % (Auto) 0.2 Absolute Neuts (auto) 12.0 H Absolute Lymphs (auto) 0.2 L Absolute Monos (auto) 0.6 Absolute Eos (auto) 0.0 Absolute Basos (auto) 0.0 Absolute Nucleated RBC 0.0 Nucleated RBC % 0.0 Sodium 138 Potassium 4.0 Chloride 106 Carbon Dioxide 25 Anion Gap 7 BUN 35 H Creatinine 1.39 H Est GFR ( Amer) 58.4 Est GFR (Non-Af Amer) 48.2 BUN/Creatinine Ratio 25.2 H Glucose 132 H Calcium 8.8 Microbiology and Other Data: . Assess/Plan/Problems-Billing Assessment: - Patient Problems (1) COPD exacerbation Comment: - Emphysema noted on CTA - Known COPD hx - Nebulizers schedule for while awake - Prednisone 40 mg started day 2 - Azithromycin added for anti-inflammatory properties day 2 - Flutter valve (2) Acute hypoxemic respiratory failure Comment: - Requiring 2L NC to maintain saturation above 90% - I suspect he will need O2 for home. CM aware. Ambulatory O2 ordered (3) Lung nodules Comment: - Enlarging left upper and new superior lingular spiculated nodules in lung - Oncology consulting - Possibly cancer. Will need repeat CT in 3 months. (4) Acute on chronic kidney failure Comment: - Known CKD - Creatinine 1.72 which is above previous baseline of 1.38 documented on 04/10/16 - Could be new baseline or acute on chronic. - Gentle IVF hydration (5) Swallowing difficulty Comment: - Nursing noted some swallowing difficulties. - Speech Therapy evaluated and recommended mechanical ground, nector thick liquids, and crushed medications. - Patient would benefit from outpatient follow up with ENT and/or GI - If he is still here Saturday he would benefit from Flouroscopy per ST (6) DVT prophylaxis Comment: - SQ heparin (7) Full code status Status and Disposition: Discharge home when medically stable. Attending: Norma Moody
[2018-07-11] MEDS: Nicotine PATCH 21 MG/24 HR* PATCH TRANSDERM SCH (22:21)
[2018-07-11] MEDS: Latanoprost 0.005%* 2.5 ml BTL BOTH EYES SCH (22:22)
[2018-07-12] MEDS: Albuterol/Ipratropium NEB.SOL* Albuterol 2.5 MG/Ipratropium 0.5 MG 3 ML INH SCH ×2 (01:22→07:19)
[2018-07-12 06:39] LABS: ABS Basophils 0.1 10^3/ul (0-0.2); ABS Lymphocytes 0.3 10^3/ul (1.0-4.8); ABS Monocytes 0.6 10^3/ul (0-0.8); ABS Neutrophils 11.2 10^3/ul (1.5-7.7); Hematocrit 37 % (42-52); Hemoglobin 12.1 g/dL (14.0-18.0); Lymphocyte % 2.3 %; Mean Corpuscular HGB Conc 33 g/dL (31-36); Mean Corpuscular Hemoglobin 31 pg (27-31); Mean Corpuscular Volume 93 fL (80-94); Mean Platelet Volume 8.3 fL (7.4-10.4); Nucleated Red Blood Cells % 0.1; Platelet Count 270 10^3/uL (150-450); Red Blood Count 3.92 10^6 /uL (4.18-5.48); Red Cell Distribution Width 14 % (10.5-15); White Blood Count 12.1 10^3/uL (3.5-10.8)
[2018-07-12 06:55] LABS: BUN/Creatinine Ratio 31.9 (8-20); EGFR African American 71.9 (>60); EGFR Non-African American 59.4 (>60); Potassium 4.3 mmol/L (3.5-5.0)
[2018-07-12] MEDS: Heparin VIAL(*) 5000 UNITS/ML VIAL (FIVE THOUSAND) SUBCUT SCH ×2 (10:00→20:49)
[2018-07-12] MEDS: predniSONE TAB* 20 MG PO SCH (10:14)
[2018-07-12] MEDS: Azithromycin IV(*) 250 MG in NS 0.9% 250 ML* 250 ML IVPB SCH (10:14)
[2018-07-12] MEDS: Multivitamins/Minerals TAB PO SCH ×2 (10:15→10:27)
[2018-07-12] MEDS: PILOCARPINE 5 MG PO SCH ×3 (10:15→20:46)
[2018-07-12] MEDS: Nicotine Patch Removal NOTE PATCH OFF SCH (10:27)
[2018-07-12] MEDS ORDERED: Spiriva Inhaler DEVICE* 1 EACH DEVICE INH SCH (11:00)
[2018-07-12] MEDS ORDERED: Albuterol/Ipratropium NEB.SOL* Albuterol 2.5 MG/Ipratropium 0.5 MG 3 ML INH PRN (11:19)
--- NOTE | 2018-07-12 15:39 | PN ---
Subjective Date of Service: 07/12/18 Interval History: Patient is still feeling SOb with exertion but denies wheezing and cough. Patient denies F/C, N/V, abdominal pain, diarrhea, dysuria, or other pain. Patient feels as if he would not be able to manage at home today due to stairs to enter. Family History: Unchanged from Admission Social History: Unchanged from Admission Past Medical History: Unchanged from Admission Objective Active Medications: Albuterol (Ventolin Hfa Inhaler*) 2 puff INH Q4H PRN PRN Reason: SOB/WHEEZING Albuterol/Ipratropium (Duoneb (Albuterol 2.5 Mg/Ipratropium 0.5 Mg)) 1 neb INH [id number] AWAKE PRN PRN Reason: protocol Device (Tiotropium Inhaler Device*) 1 each INH .USE w/ SPIRIVA CAPS [facility] Heparin Sodium (Porcine) (Heparin Vial(*)) 5,000 units SUBCUT Q12HR [facility] Last Admin: 07/12/18 10:00 Dose: 5,000 units Azithromycin 250 mg/ Sodium (Chloride) 250 mls @ 250 mls/hr IVPB Q24H [facility] Stop: 07/14/18 10:59 Last Admin: 07/12/18 10:14 Dose: 250 mls/hr Latanoprost (Xalatan 0.005%*) 1 drop BOTH EYES QPM [facility] Last Admin: 07/11/18 22:22 Dose: Not Given Multivitamins/Minerals (Theragran/Minerals Tab*) 1 tab PO DAILY [facility] Last Admin: 07/12/18 10:27 Dose: Not Given Nicotine (Nicotine Patch 21 Mg/24 Hr*) 1 patch TRANSDERM BEDTIME [facility] Last Admin: 07/11/18 22:21 Dose: 1 patch Pharmacy Profile Note (Nicotine Patch Removal Note*) 1 note PATCH OFF 0900 [facility] Last Admin: 07/12/18 10:27 Dose: Not Given Pilocarpine HCl (Salagen(Nf)) 5 mg PO TID [facility]; Protocol Last Admin: 07/12/18 14:13 Dose: Not Given Prednisone (Deltasone Tab*) 40 mg PO DAILY [facility] Last Admin: 07/12/18 10:14 Dose: 40 mg Tiotropium [place] (Spiriva Cap.Inh*) 1 cap INH DAILY [facility] Vital Signs - 8 hr 07/12/18 07/12/18 07:37 08:00 Temperature 97.4 F Pulse Rate 75 Respiratory 18 18 Rate Blood Pressure 121/59 (mmHg) O2 Sat by Pulse 98 Oximetry Oxygen Devices in Use Now: Nasal Cannula Appearance: Emaciated 88yo male who appears stated age and is sitting in the bed in NAD. Eyes: No Scleral Icterus, PERRLA Ears/Nose/Mouth/Throat: NL Teeth, Lips, Gums, Clear Oropharnyx, Mucous Membranes Moist Neck: NL Appearance and Movements; NL JVP, Trachea Midline Respiratory: Symmetrical Chest Expansion and Respiratory Effort, - - Diminished Cardiovascular: NL Sounds; No Murmurs; No JVD, RRR, No Edema Abdominal: NL Sounds; No Tenderness; No Distention, No Hepatosplenomegaly Lymphatic: No Cervical Adenopathy Extremities: No Edema, No Clubbing, Cyanosis Skin: No Rash or Ulcers, No Nodules or Sclerosis Neurological: Alert and Oriented x 3, - - CN II-XII intact. - Nutrition: Malnutrition Diagnosis/Plan Malnutrition Assessment by Registered Dietitian: Malnutrition Assessment Clinical Characteristics Acute,Severe Malnutrition Assessment: inadequate oral intake: <or= 50% of EEE x > 5 Criteria days severe wt loss: 10.5% x 3 weeks to 22.7% x several months evidence of muscle/fat wasting: moderate-severe temporal and clavicle wasting Malnutrition Assessment: suggest liberalizing to REGULAR diet given Interventions severe wt loss, underwt status Ensure Enlive with meals per d/w pt: 350 kcals, 20 g pro per serving Malnutrition Assessment: Goals 1. Intake will improve to at least 50% of meals 2. Intake at meals + supplementation will be adequate to promote wt gain, preserve lean body mass 3. Cr will improve 4. Adequate glycemic control in setting of steroid tx Result Diagrams: 07/12/18 06:20 07/12/18 06:20 Additional Lab and Data: Laboratory Results - last 24 hr Microbiology and Other Data: . Assess/Plan/Problems-Billing Assessment: Patient is an 88yo male with a PMH for COPD, RCC, Prostate cancer, who is admitted for COPD exacerbation and is improving slowly. - Patient Problems (1) COPD exacerbation Current Visit: No Status: Acute Code(s): J44.1 - CHRONIC OBSTRUCTIVE PULMONARY DISEASE W (ACUTE) EXACERBATION SNOMED Code(s): 895838473 Comment: - Emphysema noted on CTA - Known COPD hx - Nebulizers schedule for while awake - Prednisone 40 mg started day 3/5 - Azithromycin added for anti-inflammatory properties day 3/5 - Flutter valve - Start Spiriva (2) Acute on chronic kidney failure Current Visit: Yes Status: Acute Code(s): N17.9 - ACUTE KIDNEY FAILURE, UNSPECIFIED; N18.9 - CHRONIC KIDNEY DISEASE, UNSPECIFIED SNOMED Code(s): 904940427 Comment: - Known CKD - Creatinine 1.18 today, greatly improved. - Discontinue fluids. (3) Lung nodules Current Visit: Yes Status: Acute Code(s): R91.8 - OTHER NONSPECIFIC ABNORMAL FINDING OF LUNG FIELD SNOMED Code(s): 269548131 Comment: - Enlarging left upper and new superior lingular spiculated nodules in lung - Oncology consulting - Possibly cancer. Will need repeat CT in 3 months. (4) Emphysema of lung Current Visit: Yes Status: Acute Code(s): J43.9 - EMPHYSEMA, UNSPECIFIED SNOMED Code(s): 85597007 Comment: - Advanced, will need to be discharged on home O2. (5) Swallowing difficulty Current Visit: Yes Status: Acute Code(s): R13.10 - DYSPHAGIA, UNSPECIFIED SNOMED Code(s): 67532371 Comment: - Nursing noted some swallowing difficulties. - Speech Therapy evaluated and recommended mechanical ground, nector thick liquids, and crushed medications. - Patient would benefit from outpatient follow up with ENT and/or GI - If he is still here Saturday he would benefit from Flouroscopy per ST (6) Acute hypoxemic respiratory failure Current Visit: No Status: Acute Code(s): J96.01 - ACUTE RESPIRATORY FAILURE WITH HYPOXIA SNOMED Code(s): 729573813 Comment: - Requiring 2L NC to maintain saturation above 90% - I suspect he will need O2 for home. CM aware. Ambulatory O2 ordered (7) DVT prophylaxis Current Visit: No Status: Acute Code(s): FRR1248 - SNOMED Code(s): 343362348 Comment: - SQ heparin Status and Disposition: Discharge home when medically stable, hopefully in next 1-2 days.
[2018-07-12] MEDS: Nicotine PATCH 21 MG/24 HR* PATCH TRANSDERM SCH (20:49)
[2018-07-12] MEDS: Latanoprost 0.005%* 2.5 ml BTL BOTH EYES SCH (21:10)
[2018-07-13] MEDS: Latanoprost 0.005%* 2.5 ml BTL BOTH EYES SCH ×2 (00:02→22:22)
[2018-07-13] MEDS: Tiotropium CAP.INH* CAP.INH/18 MCG (USE ORDER SET !) INH SCH (08:09)
[2018-07-13] MEDS: Heparin VIAL(*) 5000 UNITS/ML VIAL (FIVE THOUSAND) SUBCUT SCH ×2 (10:15→22:21)
[2018-07-13] MEDS: Multivitamins/Minerals TAB PO SCH (10:15)
[2018-07-13] MEDS: predniSONE TAB* 20 MG PO SCH (10:15)
[2018-07-13] MEDS: Nicotine Patch Removal NOTE PATCH OFF SCH (10:15)
[2018-07-13] MEDS: Azithromycin IV(*) 250 MG in NS 0.9% 250 ML* 250 ML IVPB SCH (10:15)
[2018-07-13] MEDS: PILOCARPINE 5 MG PO SCH ×3 (10:16→22:20)
--- NOTE | 2018-07-13 13:09 | PN ---
Subjective Date of Service: 07/13/18 Interval History: Patient is feeling incrementally better than yesterday. Patient still feels SOb with exertion and does no think he could make it up the 11 stairs into his house. Patient also continues to cough after eating if he is not actively engaged in eating. Patient denies F/C, N/V, abdominal pain, diarrhea. Patient states he has a good appetite and does not feel as if he is getting full quickly. Family History: Unchanged from Admission Social History: Unchanged from Admission Past Medical History: Unchanged from Admission Objective Active Medications: Albuterol (Ventolin Hfa Inhaler*) 2 puff INH Q4H PRN PRN Reason: SOB/WHEEZING Albuterol/Ipratropium (Duoneb (Albuterol 2.5 Mg/Ipratropium 0.5 Mg)) 1 neb INH [id number] AWAKE PRN PRN Reason: protocol Device (Tiotropium Inhaler Device*) 1 each INH .USE w/ SPIRIVA CAPS [facility] Heparin Sodium (Porcine) (Heparin Vial(*)) 5,000 units SUBCUT Q12HR [facility] Last Admin: 07/13/18 10:15 Dose: 5,000 units Azithromycin 250 mg/ Sodium (Chloride) 250 mls @ 250 mls/hr IVPB Q24H [facility] Stop: 07/14/18 10:59 Last Admin: 07/13/18 10:15 Dose: 250 mls/hr Latanoprost (Xalatan 0.005%*) 1 drop BOTH EYES DAILY@2300 [facility] Last Admin: 07/13/18 00:02 Dose: 1 drop Multivitamins/Minerals (Theragran/Minerals Tab*) 1 tab PO DAILY [facility] Last Admin: 07/13/18 10:15 Dose: 1 tab Nicotine (Nicotine Patch 21 Mg/24 Hr*) 1 patch TRANSDERM BEDTIME [facility] Last Admin: 07/12/18 20:49 Dose: 1 patch Pharmacy Profile Note (Nicotine Patch Removal Note*) 1 note PATCH OFF 0900 [facility] Last Admin: 07/13/18 10:15 Dose: Not Given Pilocarpine HCl (Salagen(Nf)) 5 mg PO TID [facility]; Protocol Last Admin: 07/13/18 10:16 Dose: Not Given Prednisone (Deltasone Tab*) 40 mg PO DAILY [facility] Last Admin: 07/13/18 10:15 Dose: 40 mg Tiotropium [place] (Spiriva Cap.Inh*) 1 cap INH DAILY [facility] Last Admin: 07/13/18 08:09 Dose: 1 cap Oxygen Devices in Use Now: Nasal Cannula Appearance: Patient is an Emaciated 88yo male who appears stated age and is sitting in the house in NAD. Eyes: No Scleral Icterus, PERRLA Ears/Nose/Mouth/Throat: NL Teeth, Lips, Gums, Clear Oropharnyx, Mucous Membranes Moist Neck: NL Appearance and Movements; NL JVP, Trachea Midline Respiratory: Symmetrical Chest Expansion and Respiratory Effort, Clear to Auscultation, - - Diminished throughout Cardiovascular: NL Sounds; No Murmurs; No JVD, RRR, No Edema Abdominal: NL Sounds; No Tenderness; No Distention, No Hepatosplenomegaly Lymphatic: No Cervical Adenopathy Extremities: No Edema, No Clubbing, Cyanosis Skin: No Rash or Ulcers, No Nodules or Sclerosis Neurological: Alert and Oriented x 3, NL Sensation, NL Muscle Strength and Tone , - - CN II-XII intact. - Nutrition: Malnutrition Diagnosis/Plan Malnutrition Assessment by Registered Dietitian: Malnutrition Assessment Clinical Characteristics Acute,Severe Malnutrition Assessment: inadequate oral intake: <or= 50% of EEE x > 5 Criteria days severe wt loss: 10.5% x 3 weeks to 22.7% x several months evidence of muscle/fat wasting: moderate-severe temporal and clavicle wasting Malnutrition Assessment: suggest liberalizing to REGULAR diet given Interventions severe wt loss, underwt status Ensure Enlive with meals per d/w pt: 350 kcals, 20 g pro per serving Malnutrition Assessment: Goals 1. Intake will improve to at least 50% of meals 2. Intake at meals + supplementation will be adequate to promote wt gain, preserve lean body mass 3. Cr will improve 4. Adequate glycemic control in setting of steroid tx Result Diagrams: 07/12/18 06:20 07/12/18 06:20 Additional Lab and Data: Laboratory Results - last 24 hr Microbiology and Other Data: . Assess/Plan/Problems-Billing Assessment: Patient is an 88yo male with a PMH for COPD, RCC, Prostate cancer, who is admitted for COPD exacerbation and is improving slowly. - Patient Problems (1) COPD exacerbation Current Visit: No Status: Acute Code(s): J44.1 - CHRONIC OBSTRUCTIVE PULMONARY DISEASE W (ACUTE) EXACERBATION SNOMED Code(s): 130027028 Comment: - Emphysema noted on CTA - Known COPD hx - Nebulizers schedule for while awake - Prednisone 40 mg started day 4/5 - Azithromycin added for anti-inflammatory properties day 4/5 - Flutter valve - Start Spiriva (2) Acute on chronic kidney failure Current Visit: Yes Status: Acute Code(s): N17.9 - ACUTE KIDNEY FAILURE, UNSPECIFIED; N18.9 - CHRONIC KIDNEY DISEASE, UNSPECIFIED SNOMED Code(s): 701507698 Comment: - Known CKD - Creatinine 1.18 today, greatly improved. - Discontinue fluids. (3) Lung nodules Current Visit: Yes Status: Acute Code(s): R91.8 - OTHER NONSPECIFIC ABNORMAL FINDING OF LUNG FIELD SNOMED Code(s): 482389556 Comment: - Enlarging left upper and new superior lingular spiculated nodules in lung - Oncology consulting - Possibly cancer. Will need repeat CT in 3 months. (4) Emphysema of lung Current Visit: Yes Status: Acute Code(s): J43.9 - EMPHYSEMA, UNSPECIFIED SNOMED Code(s): 73965470 Comment: - Advanced, will need to be discharged on home O2. (5) Swallowing difficulty Current Visit: Yes Status: Acute Code(s): R13.10 - DYSPHAGIA, UNSPECIFIED SNOMED Code(s): 15603075 Comment: - Nursing noted some swallowing difficulties. - Speech Therapy evaluated and recommended mechanical ground, nector thick liquids, and crushed medications. - Patient would benefit from outpatient follow up with ENT and/or GI - Will order swallow study for tomorrow (6) Acute hypoxemic respiratory failure Current Visit: No Status: Acute Code(s): J96.01 - ACUTE RESPIRATORY FAILURE WITH HYPOXIA SNOMED Code(s): 566150413 Comment: - Requiring 2L NC to maintain saturation above 90% - I suspect he will need O2 for home. CM aware. Ambulatory O2 ordered (7) DVT prophylaxis Current Visit: No Status: Acute Code(s): IEU4514 - SNOMED Code(s): 722663168 Comment: - SQ heparin Status and Disposition: Discharge home when medically stable, hopefully tomorrow.
[2018-07-13] MEDS: Nicotine PATCH 21 MG/24 HR* PATCH TRANSDERM SCH (22:22)
[2018-07-14 06:05] LABS: Hematocrit 40 % (42-52); Hemoglobin 13.5 g/dL (14.0-18.0); Mean Corpuscular HGB Conc 34 g/dL (31-36); Mean Corpuscular Hemoglobin 31 pg (27-31); Mean Corpuscular Volume 93 fL (80-94); Mean Platelet Volume 8.7 fL (7.4-10.4); Platelet Count 296 10^3/uL (150-450); Red Blood Count 4.29 10^6 /uL (4.18-5.48); Red Cell Distribution Width 14 % (10.5-15); White Blood Count 13.7 10^3/uL (3.5-10.8)
[2018-07-14 06:06] LABS: ABS Basophils 0.2 10^3/ul (0-0.2); ABS Lymphocytes 0.2 10^3/ul (1.0-4.8); ABS Monocytes 0.5 10^3/ul (0-0.8); ABS Neutrophils 12.7 10^3/ul (1.5-7.7); Lymphocyte % 1.6 %; Nucleated Red Blood Cells % 0.1
[2018-07-14 06:24] LABS: BUN/Creatinine Ratio 40.8 (8-20); Calcium 9.1 mg/dL (8.6-10.3); EGFR African American 87.3 (>60); EGFR Non-African American 72.2 (>60); Potassium 4.8 mmol/L (3.5-5.0)
[2018-07-14] MEDS: predniSONE TAB* 20 MG PO SCH (08:37)
[2018-07-14] MEDS: Heparin VIAL(*) 5000 UNITS/ML VIAL (FIVE THOUSAND) SUBCUT SCH ×2 (08:43→21:36)
[2018-07-14] MEDS: Multivitamins/Minerals TAB PO SCH (08:46)
[2018-07-14] MEDS: Nicotine Patch Removal NOTE PATCH OFF SCH (08:47)
[2018-07-14] MEDS: PILOCARPINE 5 MG PO SCH ×3 (09:10→21:43)
[2018-07-14] MEDS: Azithromycin IV(*) 250 MG in NS 0.9% 250 ML* 250 ML IVPB SCH (09:32)
[2018-07-14] MEDS: Tiotropium CAP.INH* CAP.INH/18 MCG (USE ORDER SET !) INH SCH (09:57)
[2018-07-14] MEDS ORDERED: Albuterol 2.5 MG/3 ML NEB.SOL* (0.083%) INH PRN (15:11)
--- NOTE | 2018-07-14 15:30 | PN ---
Subjective Date of Service: 07/14/18 Interval History: Patient today feels as if there has been no improvement in breathing. Patient was not tolerating diet modifications very well. Patient has been coughing quite a bit after eating and states this has only been going on for "a couple days", however, patient states he ahs been losing weight for 3 weeks. Patient denies regurgitation of undigested food. Patient denies F/C, N/V, abdominal pain , diarrhea, CP, dizziness, palpitations, or other pain. Based on Fluoroscopy, patient was aspirating all consistencies and was recommended to be NPO, patient agrees with that and would like evaluation by GI for a possible PEG tube, though he would like to explore other options first. Family History: Unchanged from Admission Social History: Unchanged from Admission Past Medical History: Unchanged from Admission Objective Active Medications: Albuterol (Ventolin Hfa Inhaler*) 2 puff INH Q4H PRN PRN Reason: SOB/WHEEZING Albuterol/Ipratropium (Duoneb (Albuterol 2.5 Mg/Ipratropium 0.5 Mg)) 1 neb INH [id number] AWAKE PRN PRN Reason: protocol Device (Tiotropium Inhaler Device*) 1 each INH .USE w/ SPIRIVA CAPS [facility] Heparin Sodium (Porcine) (Heparin Vial(*)) 5,000 units SUBCUT Q12HR [facility] Last Admin: 07/14/18 08:43 Dose: 5,000 units Latanoprost (Xalatan 0.005%*) 1 drop BOTH EYES DAILY@2300 [facility] Last Admin: 07/13/18 22:22 Dose: 1 drop Multivitamins/Minerals (Theragran/Minerals Tab*) 1 tab PO DAILY [facility] Last Admin: 07/14/18 08:46 Dose: Not Given Nicotine (Nicotine Patch 21 Mg/24 Hr*) 1 patch TRANSDERM BEDTIME [facility] Last Admin: 07/13/18 22:22 Dose: 1 patch Pharmacy Profile Note (Nicotine Patch Removal Note*) 1 note PATCH OFF 0900 [facility] Last Admin: 07/14/18 08:47 Dose: Not Given Pilocarpine HCl (Salagen(Nf)) 5 mg PO TID [facility]; Protocol Last Admin: 07/14/18 09:10 Dose: Not Given Prednisone (Deltasone Tab*) 40 mg PO DAILY [facility] Last Admin: 07/14/18 08:37 Dose: 40 mg Saliva Substitute (Biotene Moisturizing Mouth (Nf)) 1 spray MT Q6H [facility]; Protocol Tiotropium [place] (Spiriva Cap.Inh*) 1 cap INH DAILY [facility] Last Admin: 07/14/18 09:57 Dose: 1 cap Vital Signs - 8 hr 07/14/18 07/14/18 07/14/18 08:00 09:58 11:17 Temperature 97.1 F Pulse Rate 77 86 Respiratory 16 20 18 Rate Blood Pressure 116/56 (mmHg) O2 Sat by Pulse 97 87 Oximetry Oxygen Devices in Use Now: Nasal Cannula Appearance: Patient is an emaciated 88yo male who appears stated age and is sitting in the bed in NAD. Eyes: No Scleral Icterus, PERRLA Ears/Nose/Mouth/Throat: NL Teeth, Lips, Gums, Clear Oropharnyx, Mucous Membranes Moist Neck: NL Appearance and Movements; NL JVP, Trachea Midline Respiratory: Symmetrical Chest Expansion and Respiratory Effort, - - Severely diminished throughout. Cardiovascular: NL Sounds; No Murmurs; No JVD, RRR, No Edema Abdominal: NL Sounds; No Tenderness; No Distention, No Hepatosplenomegaly Lymphatic: No Cervical Adenopathy Extremities: No Edema, No Clubbing, Cyanosis Skin: No Rash or Ulcers, No Nodules or Sclerosis Neurological: Alert and Oriented x 3, NL Sensation, NL Muscle Strength and Tone , - - CN II-XII intact. - Nutrition: Malnutrition Diagnosis/Plan Malnutrition Assessment by Registered Dietitian: Malnutrition Assessment Clinical Characteristics Acute,Severe Malnutrition Assessment: inadequate oral intake: <or= 50% of EEE x > 5 Criteria days severe wt loss: 10.5% x 3 weeks to 22.7% x several months evidence of muscle/fat wasting: moderate-severe temporal and clavicle wasting Malnutrition Assessment: suggest liberalizing to REGULAR diet given Interventions severe wt loss, underwt status Ensure Enlive with meals per d/w pt: 350 kcals, 20 g pro per serving Malnutrition Assessment: Goals 1. Intake will improve to at least 50% of meals 2. Intake at meals + supplementation will be adequate to promote wt gain, preserve lean body mass 3. Cr will improve 4. Adequate glycemic control in setting of steroid tx Result Diagrams: 07/14/18 05:42 07/14/18 05:42 Additional Lab and Data: Laboratory Results - last 24 hr Microbiology and Other Data: . Assess/Plan/Problems-Billing Assessment: Patient is an 88yo male with a PMH for COPD, RCC, Prostate cancer, who is admitted for COPD exacerbation and is improving slowly. - Patient Problems (1) Swallowing difficulty Current Visit: Yes Status: Acute Code(s): R13.10 - DYSPHAGIA, UNSPECIFIED SNOMED Code(s): 47442347 Comment: - Nursing noted some swallowing difficulties. - Speech Therapy evaluated and recommended mechanical ground, nectar thick liquids, and crushed medications. - Difficulties continued and swallow evaluation showed aspiration with all consistencies. - Patient made NPO per recommendations of DIRECTOR OF ALUMNI RELATIONS and GI will evaluate for other options for enteral nutrition. - Discussed goals of care and patient would like all life sustaining interventions. - Start D5W 1/2 NS KCl for nutritional support while GI evaluation is pending. (2) COPD exacerbation Current Visit: No Status: Acute Code(s): J44.1 - CHRONIC OBSTRUCTIVE PULMONARY DISEASE W (ACUTE) EXACERBATION SNOMED Code(s): 768322872 Comment: - Emphysema noted on CTA - Known COPD hx - Nebulizers changed to PRN, Anticholinergics D/C'd - Prednisone 40 mg, continue given worsening respiratory status - Azithromycin added for anti-inflammatory properties day 5/5 - Flutter valve - Stop spiriva due to dry mouth - Likely being continually exacerbated by aspirations - Needing more O2 today, likely due to aspirations. (3) Acute on chronic kidney failure Current Visit: Yes Status: Acute Code(s): N17.9 - ACUTE KIDNEY FAILURE, UNSPECIFIED; N18.9 - CHRONIC KIDNEY DISEASE, UNSPECIFIED SNOMED Code(s): 637057709 Comment: - Known CKD - Creatinine .98 today, greatly improved. (4) Lung nodules Current Visit: Yes Status: Acute Code(s): R91.8 - OTHER NONSPECIFIC ABNORMAL FINDING OF LUNG FIELD SNOMED Code(s): 687042953 Comment: - Enlarging left upper and new superior lingular spiculated nodules in lung - Oncology consulting - Possibly cancer. Will need repeat CT in 3 months. (5) Emphysema of lung Current Visit: Yes Status: Acute Code(s): J43.9 - EMPHYSEMA, UNSPECIFIED SNOMED Code(s): 00413572 Comment: - Advanced, will need to be discharged on home O2. (6) Acute hypoxemic respiratory failure Current Visit: No Status: Acute Code(s): J96.01 - ACUTE RESPIRATORY FAILURE WITH HYPOXIA SNOMED Code(s): 386854839 Comment: - Requiring 6L NC to maintain saturation above 90% - Likely exacerbated by recurrent aspirations, Repeat CXR (7) DVT prophylaxis Current Visit: No Status: Acute Code(s): DPL8405 - SNOMED Code(s): 754951884 Comment: - SQ heparin Status and Disposition: Discharge home when medically stable
[2018-07-14] MEDS: D5W 1/2 NS 40 Meq KCL 1000 ML* 1,000 ML IV SCH (17:34)
[2018-07-14] MEDS: CMCS: Saliva Substitute (NF) 1 SPRAY BTL MT SCH ×2 (17:34→21:43)
--- NOTE | 2018-07-14 21:29 | CONS ---
CC: Dr. Priest.* CONSULTATION REPORT: DATE OF CONSULT: 07/14/18 REQUESTING PROVIDER: KAYLA Olivares PRIMARY CARE PHYSICIAN: Dr. Priest. INDICATION: Evaluation for PEG tube. NARRATIVE: Mr. Sherman is a pleasant 88-year-old gentleman who has a history of COPD, renal cell carcinoma, prostate cancer, and likely new lung cancer, and a history of lymphoma, who presented with shortness of breath. He was admitted to the hospital with both a COPD exacerbation and likely aspiration pneumonia. He has been having choking on foods. He did have a video graphic swallowing evaluation today and he did aspirate. We were consulted to evaluate for a PEG tube. When asked the patient about any dysphagia symptoms or difficulty swallowing symptoms. He denies any of those. He tells me that he has been eating meals on wheels and he can swallow things such as mashed potatoes and it goes down into his stomach, he does not vomit it, but he will often choke on it when he starts to swallow. He has lost approximately 10 to 15 pounds over the past few weeks. He denies any GERD type symptoms. PAST MEDICAL HISTORY: COPD, chronic renal insufficiency and glaucoma. 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 MEDICATIONS AT HOME: Include 1. Albuterol inhaler. 2. Multivitamins. 3. Pilocarpine. ALLERGIES: No known drug allergies. FAMILY HISTORY: No esophageal malignancies in the family. SOCIAL HISTORY: He quit smoking approximately 3 months ago. REVIEW OF SYSTEMS: He lives here in [place]. PHYSICAL EXAM: Temperature is 97.1, blood pressure is 116/56, pulse is 86, respiratory rate of 18, O2 sat of 37% on room air. HEENT: Mucous membranes are dry without lesions, ulcers or exudate. Neck is supple. Trachea is midline. Head: Atraumatic. Lungs: Diffuse breath sounds bilaterally, very poor inspiratory efforts. No much air movement. Heart: Regular rate and rhythm. Abdomen: Positive bowel sounds, soft. He does have a chest thorax CTA from 07/09/18, which showed no pulmonary emboli, emphysema, spiculated nodules in the lung suspicious for malignancy. Video fluoroscopic swallow earlier on today which showed stasis and aspiration with pudding, honey thick, and nectar thick liquids. ASSESSMENT AND PLAN: An 88-year-old gentleman with multiple cancers including prostate, lymphoma, renal cell and a new lung cancer and severe chronic obstructive pulmonary disease, who is having aspiration issues. This really does not have a component of dysphagia to it. As far as the PEG tube to help with the aspiration, unfortunately it does not. I do wonder if he needs further speech and swallow evaluation and physical therapy regarding that. I would like to get a Gastrografin esophagogram just to rule out any esophageal pathology and to see if he is able to swallow the Gastrografin. We will continue to follow along. [id number]/CPS #: [id number] [facility]
[2018-07-14] MEDS: Nicotine PATCH 21 MG/24 HR* PATCH TRANSDERM SCH (21:36)
[2018-07-14] MEDS: Latanoprost 0.005%* 2.5 ml BTL BOTH EYES SCH (23:35)
[2018-07-15] MEDS: CMCS: Saliva Substitute (NF) 1 SPRAY BTL MT SCH ×4 (04:36→20:07)
[2018-07-15 06:06] LABS: ABS Basophils 0.1 10^3/ul (0-0.2); ABS Lymphocytes 0.3 10^3/ul (1.0-4.8); ABS Monocytes 0.6 10^3/ul (0-0.8); ABS Neutrophils 11.2 10^3/ul (1.5-7.7); Hematocrit 40 % (42-52); Hemoglobin 13.1 g/dL (14.0-18.0); Lymphocyte % 2.5 %; Mean Corpuscular HGB Conc 33 g/dL (31-36); Mean Corpuscular Hemoglobin 31 pg (27-31); Mean Corpuscular Volume 93 fL (80-94); Mean Platelet Volume 8.3 fL (7.4-10.4); Platelet Count 295 10^3/uL (150-450); Red Blood Count 4.24 10^6 /uL (4.18-5.48); Red Cell Distribution Width 15 % (10.5-15); White Blood Count 12.2 10^3/uL (3.5-10.8)
[2018-07-15 06:25] LABS: BUN/Creatinine Ratio 36.6 (8-20); Calcium 9.6 mg/dL (8.6-10.3); EGFR African American 84.4 (>60); EGFR Non-African American 69.7 (>60); Potassium 4.9 mmol/L (3.5-5.0)
[2018-07-15] MEDS: PILOCARPINE 5 MG PO SCH ×3 (07:09→20:07)
[2018-07-15] MEDS ORDERED: Piperacillin/Tazobac ADVAN(*) 3.375 GM in NS 0.9% 100 ML* 100 ML IVPB ONE (07:30)
[2018-07-15] MEDS ORDERED: Zosyn per Pharmacy* NOTE FOLLOW UP SCH (08:00)
[2018-07-15] MEDS: predniSONE TAB* 20 MG PO SCH (08:43)
[2018-07-15] MEDS: Heparin VIAL(*) 5000 UNITS/ML VIAL (FIVE THOUSAND) SUBCUT SCH ×2 (08:46→20:05)
[2018-07-15] MEDS: Nicotine Patch Removal NOTE PATCH OFF SCH (09:26)
[2018-07-15] MEDS: Multivitamins/Minerals TAB PO SCH (09:26)
[2018-07-15] MEDS: ZOSYN 3.375 GM Q8H per EXTENDED INFUSION IVPB SCH ×4 (13:18→20:04)
--- NOTE | 2018-07-15 13:35 | PN ---
Subjective Date of Service: 07/15/18 Interval History: Patient is feeling stable today. Patient states he has persistent SOB, but doesn 't feel like it is worse. Patient denies CP, N/V, abdominal pain, dysuria, or other pain. Patient says again that he would like to avoid a PEG tube if possible, but would be willing to have one if needed. Family History: Unchanged from Admission Social History: Unchanged from Admission Past Medical History: Unchanged from Admission Objective Active Medications: Albuterol (Ventolin 2.5 Mg/3 Ml Neb.Meme*) 2.5 mg INH Q4H PRN PRN Reason: SOB/WHEEZING Heparin Sodium (Porcine) (Heparin Vial(*)) 5,000 units SUBCUT Q12HR [facility] Last Admin: 07/15/18 08:46 Dose: 5,000 units Potassium Chloride/Dextrose (D5w 1/2 Ns 40 Meq Kcl 1000 Ml*) 1,000 mls @ 75 mls /hr IV PER RATE [facility] Last Admin: 07/14/18 17:34 Dose: 75 mls/hr Piperacillin Sod/Tazobactam (Sod 3.375 gm/ Sodium Chloride) 100 mls @ 25 mls/ hr IVPB Q8H [facility] Last Admin: 07/15/18 13:18 Dose: 25 mls/hr Latanoprost (Xalatan 0.005%*) 1 drop BOTH EYES DAILY@2300 [facility] Last Admin: 07/14/18 23:35 Dose: 1 drop Multivitamins/Minerals (Theragran/Minerals Tab*) 1 tab PO DAILY [facility] Last Admin: 07/15/18 09:26 Dose: Not Given Nicotine (Nicotine Patch 21 Mg/24 Hr*) 1 patch TRANSDERM BEDTIME [facility] Last Admin: 07/14/18 21:36 Dose: 1 patch Pharmacy Consult (Zosyn Per Pharmacy*) 1 note FOLLOW UP .ZOSYN PER PHARMACY [facility] Pharmacy Profile Note (Nicotine Patch Removal Note*) 1 note PATCH OFF 0900 [facility] Last Admin: 07/15/18 09:26 Dose: Not Given Pilocarpine HCl (Salagen(Nf)) 5 mg PO TID [facility]; Protocol Last Admin: 07/15/18 07:09 Dose: Not Given Prednisone (Deltasone Tab*) 40 mg PO DAILY [facility] Last Admin: 07/15/18 08:43 Dose: 40 mg Saliva Substitute (Biotene Moisturizing Mouth (Nf)) 1 spray MT Q6H [facility]; Protocol Last Admin: 07/15/18 08:52 Dose: 1 spray Vital Signs - 8 hr 07/15/18 07/15/18 07/15/18 07:08 08:00 11:51 Temperature 97.9 F 97.5 F Pulse Rate 86 83 Respiratory 20 22 20 Rate Blood Pressure 146/82 150/80 (mmHg) O2 Sat by Pulse 92 96 Oximetry 07/15/18 13:07 Temperature Pulse Rate 85 Respiratory 18 Rate Blood Pressure (mmHg) O2 Sat by Pulse 94 Oximetry Oxygen Devices in Use Now: Simple Face Mask Appearance: Patient is an 88yo emaciated male who appears stated age and is sitting in the bed in NAD. Eyes: No Scleral Icterus, PERRLA Ears/Nose/Mouth/Throat: NL Teeth, Lips, Gums, Clear Oropharnyx, Mucous Membranes Moist Neck: NL Appearance and Movements; NL JVP, Trachea Midline Respiratory: Symmetrical Chest Expansion and Respiratory Effort, - - Crackles in B/L Lower lobes, Diminished throughout. Cardiovascular: NL Sounds; No Murmurs; No JVD, RRR, No Edema Abdominal: NL Sounds; No Tenderness; No Distention, No Hepatosplenomegaly Lymphatic: No Cervical Adenopathy Extremities: No Edema, No Clubbing, Cyanosis Skin: No Rash or Ulcers, No Nodules or Sclerosis Neurological: Alert and Oriented x 3, NL Sensation, NL Muscle Strength and Tone , - - CN II-XII intact. - Nutrition: Malnutrition Diagnosis/Plan Malnutrition Assessment by Registered Dietitian: Malnutrition Assessment Clinical Characteristics Acute,Severe Malnutrition Assessment: inadequate oral intake: <or= 50% of EEE x > 5 Criteria days severe wt loss: 10.5% x 3 weeks to 22.7% x several months evidence of muscle/fat wasting: moderate-severe temporal and clavicle wasting Malnutrition Assessment: suggest liberalizing to REGULAR diet given Interventions severe wt loss, underwt status Ensure Enlive with meals per d/w pt: 350 kcals, 20 g pro per serving Malnutrition Assessment: Goals 1. Intake will improve to at least 50% of meals 2. Intake at meals + supplementation will be adequate to promote wt gain, preserve lean body mass 3. Cr will improve 4. Adequate glycemic control in setting of steroid tx Result Diagrams: 07/15/18 05:47 07/15/18 05:47 Additional Lab and Data: Laboratory Results - last 24 hr Microbiology and Other Data: . Assess/Plan/Problems-Billing Assessment: Patient is an 88yo male with a PMH for COPD, RCC, Prostate cancer, who is admitted for COPD exacerbation and is improving slowly. - Patient Problems (1) Swallowing difficulty Current Visit: Yes Status: Acute Code(s): R13.10 - DYSPHAGIA, UNSPECIFIED SNOMED Code(s): 10198894 Comment: - Nursing noted some swallowing difficulties. - Speech Therapy evaluated and recommended mechanical ground, nectar thick liquids, and crushed medications. - Difficulties continued and swallow evaluation showed aspiration with all consistencies. - Patient made NPO per recommendations of [employer] and GI will evaluate for other options for enteral nutrition. - Discussed goals of care and patient would like all life sustaining interventions. - Start D5W 1/2 NS KCl for nutritional support while full GI evaluation is pending. - Would not be TPN candidate. - Neurology consulted, will order MRI to assess for brain mass or CVA - Concern for LEMS, Consider [facility]GCC or EMG if Brain-Scan Negative (2) COPD exacerbation Current Visit: No Status: Acute Code(s): J44.1 - CHRONIC OBSTRUCTIVE PULMONARY DISEASE W (ACUTE) EXACERBATION SNOMED Code(s): 524488074 Comment: - Emphysema noted on CTA - Known COPD hx - Nebulizers changed to PRN, Anticholinergics D/C'd - Prednisone 40 mg, continue given worsening respiratory status - Azithromycin added for anti-inflammatory properties day 5/5 - Flutter valve - Stop spiriva due to dry mouth - Likely being continually exacerbated by aspirations - Needing more O2 today, likely due to aspirations. - New CXR shows infiltrate, Start Zosyn. (3) Severe protein-calorie malnutrition Current Visit: Yes Status: Acute Code(s): E43 - UNSPECIFIED SEVERE PROTEIN- CALORIE MALNUTRITION SNOMED Code(s): 348569590 Comment: - Severely malnourished, Likely due to dysphagia and advanced COPD. - Severe muscle wasting, Now NPO per diet - Will have patient evaluated for PEG tube by GI. (4) Acute on chronic kidney failure Current Visit: Yes Status: Acute Code(s): N17.9 - ACUTE KIDNEY FAILURE, UNSPECIFIED; N18.9 - CHRONIC KIDNEY DISEASE, UNSPECIFIED SNOMED Code(s): 346670261 Comment: - Known CKD - Creatinine at baseline. (5) Lung nodules Current Visit: Yes Status: Acute Code(s): R91.8 - OTHER NONSPECIFIC ABNORMAL FINDING OF LUNG FIELD SNOMED Code(s): 634261295 Comment: - Enlarging left upper and new superior lingular spiculated nodules in lung - Oncology consulting - Possibly cancer. Will need repeat CT in 3 months. (6) Emphysema of lung Current Visit: Yes Status: Acute Code(s): J43.9 - EMPHYSEMA, UNSPECIFIED SNOMED Code(s): 71573945 Comment: - Advanced, will need to be discharged on home O2. (7) Acute hypoxemic respiratory failure Current Visit: No Status: Acute Code(s): J96.01 - ACUTE RESPIRATORY FAILURE WITH HYPOXIA SNOMED Code(s): 453926030 Comment: - Requiring 6L NC to maintain saturation above 90% - Likely exacerbated by recurrent aspirations, Repeat CXR shows possible aspiration pneumonia. (8) DVT prophylaxis Current Visit: No Status: Acute Code(s): EWO0768 - SNOMED Code(s): 056159507 Comment: - SQ heparin Status and Disposition: Discharge home when medically stable
[2018-07-15] MEDS ORDERED: Gadoteridol* (CONTRAST) 279.3 MG/ML 10 ML IV ONE (16:47)
[2018-07-15] MEDS: Nicotine PATCH 21 MG/24 HR* PATCH TRANSDERM SCH (20:08)
--- NOTE | 2018-07-15 22:42 | CONS ---
CONSULTATION REPORT: DATE OF CONSULT: 07/15/18 PATIENT OF: Dr. Priest, Dr. Mac. HISTORY OF PRESENT ILLNESS: This is an 88-year-old man who I am asked to evaluate for swallowing difficulties. He presents with increasing shortness of breath over the past few weeks time and had what is thought to be a COPD exacerbation and possible aspiration pneumonia. He said he has had no swallowing difficulties to me, but he has changed his diet in terms of eating just smashed potatoes but will often choke on it when he starts to swallow. He therefore had a videographic swallowing evaluation today with aspiration and was asked to comment on his swallowing difficulties. He has lost 10 to 15 pounds in the past several weeks time. In addition to his new diagnosis of lung cancer, he has history of renal cell carcinoma, status post nephrectomy, splenectomy, eleventh rib removal, history of prostate cancer, status post prostatectomy, chronic kidney disease stage 3, COPD, glaucoma. He has no cough, hemoptysis, melena. He denies any weakness. PAST MEDICAL HISTORY: He is status post left nephrectomy, splenectomy, 11th rib resection, left neck cyst removal in 2013. MEDICATIONS: Medicines at home include albuterol inhaler 2 puffs q.4 hours p.r.n., pilocarpine 5 mg t.i.d., and eye drops. ALLERGIES: He has no known drug allergies. FAMILY HISTORY: Negative for cancer or stroke. SOCIAL HISTORY: He quit smoking 3 to 4 months ago and approximately has a half- a-pack history for the past 68 years. He rarely uses alcohol and lives alone. REVIEW OF SYSTEMS: Positive for what is in the HPI, otherwise is negative in all 14 spheres. PHYSICAL EXAM: Temperature 97.5, pulse 85, respirations 18, blood pressure 150/ 80. He is cachectic, wearing oxygen. He is alert and oriented with normal speech and comprehension. Cranial nerves II through XII were intact other than his speech was slightly thicker. There was no tongue fasciculations to my eye. Motor exam revealed normal tone and strength other than appearing diffusely cachectic with decreased muscle bulk. Reflexes were 3+ in the legs, 2 in the arms with toes equivocal to downgoing. Chest: Clear. Cardiovascular: Regular rate and rhythm. Abdomen: Soft with positive bowel sounds. DIAGNOSTIC STUDIES/LAB DATA: I reviewed his MRI scan, which showed some diffuse atrophy and white matter change, but no obvious masses. His white count is 12.2, hematocrit 40, platelets 295. BMP is abnormal for BUN of 37. In the setting of lung cancer and his difficulties swallowing, it would be reasonable to evaluate for Augustin Pimentel. I obtained an MRI scan. He has brisk reflexes and I wanted to make sure there is no mets before pursuing more extended and somewhat uncomfortable workup, but there is no mets seen. His MRI scan did show some white matter disease that may be responsible for his brisk reflexes and the official report has not been read yet. I think his workup given that he wants having these symptoms aggressively pursued would be to do calcium channel antibodies and Dr. Shelby is picking up this case tomorrow and I will be speaking to Dr. Bubba washingtno. Thank you for sharing his case. [id number]/[facility] #: [id number] CAROL
[2018-07-16] MEDS: Latanoprost 0.005%* 2.5 ml BTL BOTH EYES SCH ×2 (00:02→23:29)
[2018-07-16] MEDS: D5W 1/2 NS 40 Meq KCL 1000 ML* 1,000 ML IV SCH ×3 (00:13→23:34)
[2018-07-16] MEDS: ZOSYN 3.375 GM Q8H per EXTENDED INFUSION IVPB SCH ×6 (05:44→21:13)
[2018-07-16] MEDS: CMCS: Saliva Substitute (NF) 1 SPRAY BTL MT SCH ×4 (05:44→21:14)
[2018-07-16 07:06] LABS: ABS Lymphocytes 0.3 10^3/ul (1.0-4.8); ABS Monocytes 0.7 10^3/ul (0-0.8); ABS Neutrophils 12.9 10^3/ul (1.5-7.7); Hematocrit 40 % (42-52); Hemoglobin 13.2 g/dL (14.0-18.0); Mean Corpuscular HGB Conc 33 g/dL (31-36); Mean Corpuscular Hemoglobin 31 pg (27-31); Mean Corpuscular Volume 94 fL (80-94); Mean Platelet Volume 8.9 fL (7.4-10.4); Nucleated Red Blood Cells % 0.1; Platelet Count 275 10^3/uL (150-450); Red Blood Count 4.28 10^6 /uL (4.18-5.48); Red Cell Distribution Width 14 % (10.5-15); White Blood Count 13.9 10^3/uL (3.5-10.8)
[2018-07-16 07:17] LABS: Albumin 2.9 g/dL (3.2-5.2); Albumin/Globulin Ratio 1.1 (1-3); BUN/Creatinine Ratio 30.6 (8-20); Calcium 9.2 mg/dL (8.6-10.3); EGFR African American 75.6 (>60); EGFR Non-African American 62.5 (>60); Globulin 2.7 g/dL (2-4); Magnesium 1.8 mg/dL (1.9-2.7); Total Bilirubin 0.5 mg/dL (0.2-1.0); Total Protein 5.6 g/dL (6.4-8.9)
[2018-07-16 07:23] LABS: Potassium 5.1 mmol/L (3.5-5.0)
--- NOTE | 2018-07-16 08:27 | PN ---
Subjective Date of Service: 07/16/18 Length of Stay: 7 Days Interval History: Pt examined today at the bedside. He states that he is still feeling short of breathe when he ambulates. He denies chest and denies shortness of breathe. He states that he can swallow fine but the food does not go where it is suppose to go. He denies choking. Denies double vision. Denies loss of consciousness and denies lightheadedness. He states he would like to avoid a peg tube if possible Review of Systems: Denied CP, SOB, or palpitations. Family History: Unchanged from Admission Social History: Unchanged from Admission Past Medical History: Unchanged from Admission Objective Active Medications: Albuterol (Ventolin 2.5 Mg/3 Ml Neb.Meme*) 2.5 mg INH Q4H PRN PRN Reason: SOB/WHEEZING Heparin Sodium (Porcine) (Heparin Vial(*)) 5,000 units SUBCUT Q12HR [facility] Last Admin: 07/15/18 20:05 Dose: 5,000 units Potassium Chloride/Dextrose (D5w 1/2 Ns 40 Meq Kcl 1000 Ml*) 1,000 mls @ 75 mls /hr IV PER RATE [facility] Last Admin: 07/16/18 00:13 Dose: 75 mls/hr Piperacillin Sod/Tazobactam (Sod 3.375 gm/ Sodium Chloride) 100 mls @ 25 mls/ hr IVPB Q8H [facility] Last Admin: 07/16/18 05:44 Dose: 25 mls/hr Latanoprost (Xalatan 0.005%*) 1 drop BOTH EYES DAILY@2300 [facility] Last Admin: 07/16/18 00:02 Dose: 1 drop Multivitamins/Minerals (Theragran/Minerals Tab*) 1 tab PO DAILY [facility] Last Admin: 07/15/18 09:26 Dose: Not Given Nicotine (Nicotine Patch 21 Mg/24 Hr*) 1 patch TRANSDERM BEDTIME [facility] Last Admin: 07/15/18 20:08 Dose: 1 patch Pharmacy Consult (Zosyn Per Pharmacy*) 1 note FOLLOW UP .ZOSYN PER PHARMACY [facility] Pharmacy Profile Note (Nicotine Patch Removal Note*) 1 note PATCH OFF 0900 [facility] Last Admin: 07/15/18 09:26 Dose: Not Given Pilocarpine HCl (Salagen(Nf)) 5 mg PO TID [facility]; Protocol Last Admin: 07/15/18 20:07 Dose: Not Given Prednisone (Deltasone Tab*) 40 mg PO DAILY [facility] Last Admin: 07/15/18 08:43 Dose: 40 mg Saliva Substitute (Biotene Moisturizing Mouth (Nf)) 1 spray MT Q6H [facility]; Protocol Last Admin: 07/16/18 05:44 Dose: 1 spray Vital Signs 07/15/18 07/15/18 07/15/18 11:51 13:07 16:20 Temperature 97.5 F 97.4 F Pulse Rate 83 85 82 Respiratory 20 18 Rate Blood Pressure 150/80 136/74 (mmHg) O2 Sat by Pulse 96 94 95 Oximetry 07/15/18 07/15/18 07/15/18 18:22 19:06 21:34 Temperature 97.4 F Pulse Rate 95 Respiratory 22 30 18 Rate Blood Pressure 159/79 (mmHg) O2 Sat by Pulse 96 Oximetry 07/15/18 07/16/18 07/16/18 23:10 02:59 07:25 Temperature 97.6 F 97.1 F 97.3 F Pulse Rate 84 77 84 Respiratory 20 16 16 Rate Blood Pressure 136/73 156/79 132/92 (mmHg) O2 Sat by Pulse 98 99 96 Oximetry Intake and Output Last 24 Hours 07/14/18 07/15/18 07/16/18 07/17/18 06:59 06:59 06:59 06:59 Intake Total 900 1320 100 Output Total 1375 1770 1750 Balance -475 -450 -1650 Weight 85 lb 12.8 oz Intake: IV Fluids 400 100 ABX - ZOSYN 100 D5 1/2 NS with 40 meq Kcl 150 azithromycin 250 Oral 900 920 0 Output: Urine 1375 1770 1750 Other: # Bowel Movements 0 0 0 # Voids 0 Oxygen Devices in Use Now: Simple Face Mask Neurology Exam: General: Cachetic appearing and in no acute distress HEENT: Normocephelic/atraumatic, sclera anicteric, mucous membranes moist Neck: Supple Chest: Clear to auscultation bilaterally Cardiovascular: Regular rate and rhythm without murmurs, rubs, gallops Abdomen: Soft, non-tender/non-distended Extremities: No clubbing, cyanosis, or edema Neurological Findings: Awake, alert, and oriented to person, place, and time. Speech: fluent without dysarthria, repetition intact Cranial Nerve: PERRL, EOM intact, VFF, no nystagmus, face symmetric bilaterally , facial sensation intact, hearing intact to finger rub bilaterally, palate elevates symmetrically, tongue midline, SCM and Trapezius 5/5. Motor: 5/5 throughout, proximal and distal extremities x4 tone/bulk normal, fatigues to left deltoid after 5 reps, Sensation: intact to LT bilaterally upper and lower extremities Deep Tendon Reflex: 3+ symmetric in the ower extremities, Babinski - down going , 2 plus in upper extremities Finger to nose, rapid alternating movements intact without tremor, no dysdiadochokinesia Gait: not tested as he become SOB with standing Romberg moderate sway with eyes open and closed Result Diagrams: 07/16/18 06:00 07/16/18 06:00 Additional Lab and Data: Laboratory Results - last 24 hr Microbiology and Other Data: . Assessment/Plan Assessment: Patient is an 88yo male with a PMH for COPD, RCC, Prostate cancer, who is admitted for COPD exacerbation and is improving slowly. We were asked to evaluated for his difficulty with swallowing. Dysphasia: Patient was noted on swallowing study to aspirate with honey, nectar and pudding thick liquids. MRI obtained and shows not acute findings. On exam today he did have fatiguing with 5 reps to the left deltoid. I am going to send of VGCC and Myasthenia panel, anti musk panel, I will also check a paraneoplastic panel as well. Motor neuron disease is in the differentail as well will check CK , aldolase, and myglobin. Consider EMG outpatient. We can consider obtaining repetitive nerve stimulation but at this point I would like to await lab work first. Agree with continuing NPO, Consider Peg tube but will defer this to primary team and GI . I would continue speech therapy. COPD exacerbation Per primary team Lung Nodules Oncology following Severe Protein malnutrition Again consider Peg tube given patient wishes of aggressive measures defer to primary team and GI, continue speech therapy efforts, Will await lab results. Further recommendations to follow based on results.
[2018-07-16] MEDS: Heparin VIAL(*) 5000 UNITS/ML VIAL (FIVE THOUSAND) SUBCUT SCH ×2 (09:55→21:13)
[2018-07-16] MEDS: PILOCARPINE 5 MG PO SCH ×4 (09:55→21:13)
[2018-07-16] MEDS: Multivitamins/Minerals TAB PO SCH (09:56)
[2018-07-16] MEDS: Nicotine Patch Removal NOTE PATCH OFF SCH (09:56)
[2018-07-16] MEDS: predniSONE TAB* 20 MG PO SCH (09:56)
--- NOTE | 2018-07-16 11:00 | PN ---
Subjective Date of Service: 07/16/18 Interval History: Mr. Sherman is feeling ok today. He offers no significant complaints. He is aware that GI is not recommending a PEG tube, and he would not want one anyway. He denies SOB, CP, N/V. Has been NPO. He is aware that he has a significant risk of aspiration and subsequent pneumonia. No concerns from nursing. Around 1100 patient ambulated to the bathroom and once there was noted to be 70 % on 6L oxymask. Oxygen was increased to 15L without significant improvement in saturations. Spoke with patient regarding code status and he is adamant that he would like be intubated if necessary and would like to remain a full code. Family History: Unchanged from Admission Social History: Unchanged from Admission Past Medical History: Unchanged from Admission Objective Active Medications: Albuterol (Ventolin 2.5 Mg/3 Ml Neb.Meme*) 2.5 mg INH Q4H PRN SOB/WHEEZING Heparin Sodium (Porcine) (Heparin Vial(*)) 5,000 units SUBCUT Q12HR [facility] Potassium Chloride/Dextrose (D5w 1/2 Ns 40 Meq Kcl 1000 Ml*) 1,000 mls @ 75 mls /hr IV PER RATE [facility] Piperacillin Sod/Tazobactam (Sod 3.375 gm/ Sodium Chloride) 100 mls @ 25 mls/ hr IVPB Q8H [facility] Latanoprost (Xalatan 0.005%*) 1 drop BOTH EYES DAILY@2300 [facility] Multivitamins/Minerals (Theragran/Minerals Tab*) 1 tab PO DAILY [facility] Nicotine (Nicotine Patch 21 Mg/24 Hr*) 1 patch TRANSDERM BEDTIME [facility] Pilocarpine HCl (Salagen(Nf)) 5 mg PO TID [facility]; Protocol Prednisone (Deltasone Tab*) 40 mg PO DAILY [facility] Saliva Substitute (Biotene Moisturizing Mouth (Nf)) 1 spray MT Q6H [facility]; Protocol Vital Signs - 8 hr 07/16/18 07/16/18 07/16/18 02:59 07:25 08:00 Temperature 97.1 F 97.3 F Pulse Rate 77 84 86 Respiratory 16 16 18 Rate Blood Pressure 156/79 132/92 (mmHg) O2 Sat by Pulse 99 96 95 Oximetry Oxygen Devices in Use Now: Simple Face Mask - 6L Appearance: Elderly cachectic male sitting in bed in NAD Eyes: No Scleral Icterus Ears/Nose/Mouth/Throat: Mucous Membranes Moist Neck: NL Appearance and Movements; NL JVP, Trachea Midline Respiratory: Symmetrical Chest Expansion and Respiratory Effort, - - Very diminished throughout Cardiovascular: NL Sounds; No Murmurs; No JVD, RRR Abdominal: NL Sounds; No Tenderness; No Distention Extremities: No Edema Skin: No Rash or Ulcers Neurological: Alert and Oriented x 3 Lines/Tubes/Other Access: Clean, Dry and Intact Peripheral IV - Nutrition: Malnutrition Diagnosis/Plan Malnutrition Assessment by Registered Dietitian: Malnutrition Assessment Clinical Characteristics Acute,Severe Malnutrition Assessment: inadequate oral intake: <or= 50% of EEE x > 5 Criteria days severe wt loss: 10.5% x 3 weeks to 22.7% x several months evidence of muscle/fat wasting: moderate-severe temporal and clavicle wasting Malnutrition Assessment: suggest liberalizing to REGULAR diet given Interventions severe wt loss, underwt status Ensure Enlive with meals per d/w pt: 350 kcals, 20 g pro per serving Malnutrition Assessment: Goals 1. Intake will improve to at least 50% of meals 2. Intake at meals + supplementation will be adequate to promote wt gain, preserve lean body mass 3. Cr will improve 4. Adequate glycemic control in setting of steroid tx Result Diagrams: 07/16/18 06:00 07/16/18 06:00 Assess/Plan/Problems-Billing Assessment: Mr. Sherman is an 88 yo male with a PMH for COPD, RCC, prostate cancer, who is admitted for COPD exacerbation requiring high amount of oxygen with hospitalization complicated by aspiration. - Patient Problems (1) Acute hypoxemic respiratory failure Code(s): J96.01 - ACUTE RESPIRATORY FAILURE WITH HYPOXIA Comment: - Requiring 6L NC to maintain saturation above 90% this morning then desaturated down to 70% after ambulating to the bathroom and was unable to recover prompting the need for Vapotherm - Likely exacerbated by recurrent aspirations; repeat CXR shows possible aspiration pneumonia - Continue prednisone (2) COPD exacerbation Code(s): J44.1 - CHRONIC OBSTRUCTIVE PULMONARY DISEASE W (ACUTE) EXACERBATION Comment: - Emphysema noted on CTA with known COPD history - Likely being continually exacerbated by aspirations - Recent CXR showing new infiltrate - Spiriva previously d/c'd d/t dry mouth - Completed 5 day course of azithromycin - Flutter valve - Continue Zosyn, prednisone, nebs (3) Swallowing difficulty Code(s): R13.10 - DYSPHAGIA, UNSPECIFIED Comment: - Nursing noted some swallowing difficulties - Speech Therapy evaluated and recommended mechanical ground, nectar thick liquids, and crushed medications - Difficulties continued and swallow evaluation showed aspiration with all consistencies; made NPO per recommendations of LOCAL TELEPHONE OPERATOR - Would not be TPN candidate - Appreciate Neurology consult; possibility of myasthenia gravis or E[place] Lambert; labs have been sent out and are pending at this point - GI indicates that he is not a candidate for a PEG as that will not prevent further aspiration - Discussed with patient and plan will likely be to give him pudding thick liquids with the understanding that he will continue to aspirate and will very likely develop aspiration pneumonia; he understands this and would like to proceed with this plan - Continue IVF (4) Severe protein-calorie malnutrition Code(s): E43 - UNSPECIFIED SEVERE PROTEIN-CALORIE MALNUTRITION Comment: - Severely malnourished, likely due to dysphagia and advanced COPD - Severe muscle wasting, now NPO per diet - Plan as above (5) Lung nodules Code(s): R91.8 - OTHER NONSPECIFIC ABNORMAL FINDING OF LUNG FIELD Comment: - Enlarging left upper and new superior lingular spiculated nodules in lung - Oncology following - Possible malignancy; will need repeat CT in 3 months (6) Acute on chronic kidney failure Code(s): N17.9 - ACUTE KIDNEY FAILURE, UNSPECIFIED; N18.9 - CHRONIC KIDNEY DISEASE, UNSPECIFIED Comment: - Creatinine at baseline (7) DVT prophylaxis Comment: - Heparin SQ (8) Full code status Code(s): Z78.9 - OTHER SPECIFIED HEALTH STATUS Comment: Status and Disposition: Transfer to ICU for Vapotherm. Care transferred to [employer]. Counseling and/or Coordination of Care Minutes: Approx 40 minutes critical care time. Attending: oTya Pierda
--- NOTE | 2018-07-16 14:42 | PN ---
Date of Service: 07/16/18 Critical Care Services: Patient seen and examined and d/w Hospitalist, Nursing and patient at the bedside. Patient sent to ICU for worsening hypoxemia. Patient with long hx of COPD but not on oxygen and lung mass suggestive of lung CA. Patient on 100% high flow and p02's remain in the 50's. Severely malnourished. Poor ADL's at baseline. Has SOB ambulating in his apartment. Vital Signs: Temp Pulse Resp BP SpO2 FiO2 97.1 F 87 35 150/77 100 100 07/16/18 12:43 07/16/18 13:46 07/16/18 13:55 07/16/18 13:46 07/16/18 13:46 07/16 12:51 Physical Exam: Gen: Cachetic. AO times 3. SOB with speaking. Lungs:Decreased BS's, crackles bases Cardiac: RRR Abdomen: +BS, Soft, NTP. Cachetic Extremities: No LISA Neuro: moving all extremities Fluid Balance (Past 24 Hours): I= O= Net Intake & Output 07/14/18 07/15/18 07/16/18 07/17/18 06:59 06:59 06:59 06:59 Intake Total 900 1320 100 0 Output Total 1375 1770 1750 200 Balance -475 -450 -1650 -200 Weight 85 lb 12.8 oz Intake: IV Fluids 400 100 ABX - ZOSYN 100 D5 1/2 NS with 40 meq Kcl 150 azithromycin 250 Oral 900 920 0 0 Output: Urine 1375 1770 1750 200 Other: # Bowel Movements 0 0 0 0 Estimated Stool Amount Medium # Voids 0 0 Labs: Laboratory Results - last 24 hr 07/16/18 07/16/18 07/16/18 06:00 06:00 11:50 WBC 13.9 H RBC 4.28 Hgb 13.2 L Hct 40 L MCV 94 MCH 31 MCHC 33 RDW 14 Plt Count 275 MPV 8.9 Neut % (Auto) 93.0 Lymph % (Auto) 2.0 [place] % (Auto) 4.9 Eos % (Auto) 0.0 Baso % (Auto) 0.1 Absolute Neuts (auto) 12.9 H Absolute Lymphs (auto) 0.3 L Absolute Monos (auto) 0.7 Absolute Eos (auto) 0.0 Absolute Basos (auto) 0.0 Absolute Nucleated RBC 0.0 Nucleated RBC % 0.1 Patient Temperature Not Reportable ABG pH 7.44 ABG pH (Temp Correct) Not Reportable ABG pCO2 40 ABG pCO2 (Temp Corrct Not Reportable ABG pO2 54 L* ABG pO2 (Temp Correct Not Reportable ABG HCO3 26.8 ABG O2 Saturation 88.0 L ABG Base Excess 2.8 H Respiration Rate Not Reportable O2 Delivery Device oxymask Ventilator Type Not Reportable Vent Mode Not Reportable FiO2 15 Inspiratory Time Not Reportable PEEP Not Reportable Pressure Support Not Reportable Pressure Control Not Reportable EPAP Not Reportable IPAP Not Reportable BiPAP Not Reportable Sodium 135 Potassium 5.1 H Chloride 100 L Carbon Dioxide 30 Anion Gap 5 BUN 34 H Creatinine 1.11 Est GFR ( Amer) 75.6 Est GFR (Non-Af Amer) 62.5 BUN/Creatinine Ratio 30.6 H Glucose 118 H Calcium 9.2 Phosphorus 4.0 Magnesium 1.8 L Total Bilirubin 0.50 AST 16 ALT 11 Alkaline Phosphatase 89 Total Creatine Kinase 31 Myoglobin 91.0 Total Protein 5.6 L Albumin 2.9 L Globulin 2.7 Albumin/Globulin Ratio 1.1 Studies: spiculated mass on CT scan on admission consistent with Cancer Impression: #COPD #Probable Lung CA #Severe malnutrition #ARF with hypoxemia requiring high flow oxygen #Deconditioning #PNA #Aspiration Plan: Continue high flow oxygen continue empiric ABX continue steroid taper but switch to IV and continue nebs not lung biopsy candidate as per onc notes patient made DNR. Discussed myself with patient intubation. If needed, he stated he would like a trial of intubation -approx 5-7 days- but no trach or peg tube placement. Patient with an extremely poor prognosis. Critical Care Time: 55
[2018-07-16] MEDS: methylPREDNISolone SOD 40 MG* 1 ML VIAL IV SCH ×2 (16:23→23:28)
[2018-07-16] MEDS ORDERED: Magnesium Sulfate 1 GM IV* 1 GM/100 ML BAG IV ONE (19:30)
--- NOTE | 2018-07-16 21:05 | CONSULT ---
Palliative / Hospice Consult Ordering Provider: Lupe Gan - PCP-[facility]ura - Subjective Code Status: DNR Advance Directives Location: No Advance Directives MOLST Part A Completed: Yes - completed with pt & on chart MOLST Part E Completed:: Yes - completed with pt and on chart - History or Present Illness History or Present Illness: 88yo male who developed SOB and has weight loss going from 125 to 86 pounds. 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 Studies- CTA no PE, mild to mod emphysema, bilateral lobe aspiration pneumonia and enlarging L upper & new superior spiculated nodules, brain MRI no mass/ bleed & mod chronic microvascular ischemic changes, Ekg-nsr, old ant infarct, swallow funx showed stasis and aspiration all consistencies, CXR-JOHNATHAN density, small LLL infiltrate & effusion pneumonia, COPD, H/H 13.2/40, BUN/Cr 34/1.11 egfr 62.5, tpro 5.6 & alb 2.9. 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 His HCP is Maxim Rivas a friend [phone]. All history is from the pt and medical record. Pt was admitted to the 4th floor but developed acute SOB was brought to the unit and put on vapotherm. Lab Values: Abnormal Lab Results 07/16/18 07/16/18 07/16/18 06:00 06:00 11:50 WBC 13.9 H RBC 4.28 Hgb 13.2 L Hct 40 L MCV 94 MCH 31 MCHC 33 RDW 14 Plt Count 275 MPV 8.9 Neut % (Auto) 93.0 Lymph % (Auto) 2.0 Montgomery % (Auto) 4.9 Eos % (Auto) 0.0 Baso % (Auto) 0.1 Absolute Neuts (auto) 12.9 H Absolute Lymphs (auto) 0.3 L Absolute Monos (auto) 0.7 Absolute Eos (auto) 0.0 Absolute Basos (auto) 0.0 Absolute Nucleated RBC 0.0 Nucleated RBC % 0.1 Patient Temperature Not Reportable ABG pH 7.44 ABG pH (Temp Correct) Not Reportable ABG pCO2 40 ABG pCO2 (Temp Corrct Not Reportable ABG pO2 54 L* ABG pO2 (Temp Correct Not Reportable ABG HCO3 26.8 ABG O2 Saturation 88.0 L ABG Base Excess 2.8 H Respiration Rate Not Reportable O2 Delivery Device oxymask Ventilator Type Not Reportable Vent Mode Not Reportable FiO2 15 Inspiratory Time Not Reportable PEEP Not Reportable Pressure Support Not Reportable Pressure Control Not Reportable EPAP Not Reportable IPAP Not Reportable BiPAP Not Reportable Sodium 135 Potassium 5.1 H Chloride 100 L Carbon Dioxide 30 Anion Gap 5 BUN 34 H Creatinine 1.11 Est GFR ( Amer) 75.6 Est GFR (Non-Af Amer) 62.5 BUN/Creatinine Ratio 30.6 H Glucose 118 H Calcium 9.2 Phosphorus 4.0 Magnesium 1.8 L Total Bilirubin 0.50 AST 16 ALT 11 Alkaline Phosphatase 89 Total Creatine Kinase 31 Myoglobin 91.0 Total Protein 5.6 L Albumin 2.9 L Globulin 2.7 Albumin/Globulin Ratio 1.1 Laboratory Last Values WBC 13.9 10^3/uL (3.5-10.8) H 07/16/18 06:00 RBC 4.28 10^6 /uL (4.18-5.48) 07/16/18 06:00 Hgb 13.2 g/dL (14.0-18.0) L 07/16/18 06:00 Hct 40 % (42-52) L 07/16/18 06:00 MCV 94 fL (80-94) 07/16/18 06:00 MCH 31 pg (27-31) 07/16/18 06:00 MCHC 33 g/dL (31-36) 07/16/18 06:00 RDW 14 % (10.5-15) 07/16/18 06:00 Plt Count 275 10^3/uL (150-450) 07/16/18 06:00 MPV 8.9 fL (7.4-10.4) 07/16/18 06:00 Neut % (Auto) 93.0 % 07/16/18 06:00 Lymph % (Auto) 2.0 % 07/16/18 06:00 Montgomery % (Auto) 4.9 % 07/16/18 06:00 Eos % (Auto) 0.0 % 07/16/18 06:00 Baso % (Auto) 0.1 % 07/16/18 06:00 Absolute Neuts (auto) 12.9 10^3/ul (1.5-7.7) H 07/16/18 06:00 Absolute Lymphs (auto) 0.3 10^3/ul (1.0-4.8) L 07/16/18 06:00 Absolute Monos (auto) 0.7 10^3/ul (0-0.8) 07/16/18 06:00 Absolute Eos (auto) 0.0 10^3/ul (0-0.6) 07/16/18 06:00 Absolute Basos (auto) 0.0 10^3/ul (0-0.2) 07/16/18 06:00 Absolute Nucleated RBC 0.0 10^3/ul 07/16/18 06:00 Nucleated RBC % 0.1 07/16/18 06:00 Patient Temperature Not Reportable 07/16/18 11:50 ABG pH 7.44 (7.35-7.45) 07/16/18 11:50 ABG pH (Temp Correct) Not Reportable 07/16/18 11:50 ABG pCO2 40 mmHg (35-45) 07/16/18 11:50 ABG pCO2 (Temp Corrct Not Reportable 07/16/18 11:50 ABG pO2 54 mmHg (80-100) L* 07/16/18 11:50 ABG pO2 (Temp Correct Not Reportable 07/16/18 11:50 ABG HCO3 26.8 mmol/L (19-31) 07/16/18 11:50 ABG O2 Saturation 88.0 % (94.0-98.0) L 07/16/18 11:50 ABG Base Excess 2.8 mmol/L (-2.0-2.0) H 07/16/18 11:50 Respiration Rate Not Reportable 07/16/18 11:50 O2 Delivery Device oxymask 07/16/18 11:50 Ventilator Type Not Reportable 07/16/18 11:50 Vent Mode Not Reportable 07/16/18 11:50 FiO2 15 07/16/18 11:50 Inspiratory Time Not Reportable 07/16/18 11:50 PEEP Not Reportable 07/16/18 11:50 Pressure Support Not Reportable 07/16/18 11:50 Pressure Control Not Reportable 07/16/18 11:50 EPAP Not Reportable 07/16/18 11:50 IPAP Not Reportable 07/16/18 11:50 BiPAP Not Reportable 07/16/18 11:50 Sodium 135 mmol/L (135-145) 07/16/18 06:00 Potassium 5.1 mmol/L (3.5-5.0) H 07/16/18 06:00 Chloride 100 mmol/L (101-111) L 07/16/18 06:00 Carbon Dioxide 30 mmol/L (22-32) 07/16/18 06:00 Anion Gap 5 mmol/L (2-11) 07/16/18 06:00 BUN 34 mg/dL (6-24) H 07/16/18 06:00 Creatinine 1.11 mg/dL (0.67-1.17) 07/16/18 06:00 Est GFR ( Amer) 75.6 (>60) 07/16/18 06:00 Est GFR (Non-Af Amer) 62.5 (>60) 07/16/18 06:00 BUN/Creatinine Ratio 30.6 (8-20) H 07/16/18 06:00 Glucose 118 mg/dL (70-100) H 07/16/18 06:00 Lactic Acid 0.7 mmol/L (0.5-2.0) 07/10/18 05:28 Calcium 9.2 mg/dL (8.6-10.3) 07/16/18 06:00 Phosphorus 4.0 mg/dL (2.5-5.0) 07/16/18 06:00 Magnesium 1.8 mg/dL (1.9-2.7) L 07/16/18 06:00 Total Bilirubin 0.50 mg/dL (0.2-1.0) 07/16/18 06:00 AST 16 U/L (13-39) 07/16/18 06:00 ALT 11 U/L (7-52) 07/16/18 06:00 Alkaline Phosphatase 89 U/L (34-104) 07/16/18 06:00 Total Creatine Kinase 31 U/L (10-223) 07/16/18 06:00 Myoglobin 91.0 ng/mL (17.4-105.7) 07/16/18 06:00 Total Protein 5.6 g/dL (6.4-8.9) L 07/16/18 06:00 Albumin 2.9 g/dL (3.2-5.2) L 07/16/18 06:00 Globulin 2.7 g/dL (2-4) 07/16/18 06:00 Albumin/Globulin Ratio 1.1 (1-3) 07/16/18 06:00 - Objective Active Medications: Albuterol (Ventolin 2.5 Mg/3 Ml Neb.Meme*) 2.5 mg INH Q4H PRN PRN Reason: SOB/WHEEZING Heparin Sodium (Porcine) (Heparin Vial(*)) 5,000 units SUBCUT Q12HR [facility] Last Admin: 07/16/18 09:55 Dose: 5,000 units Potassium Chloride/Dextrose (D5w 1/2 Ns 40 Meq Kcl 1000 Ml*) 1,000 mls @ 75 mls /hr IV PER RATE [facility] Last Admin: 07/16/18 13:25 Dose: 75 mls/hr Piperacillin Sod/Tazobactam (Sod 3.375 gm/ Sodium Chloride) 100 mls @ 25 mls/ hr IVPB Q8H [facility] Last Admin: 07/16/18 13:28 Dose: 25 mls/hr Latanoprost (Xalatan 0.005%*) 1 drop BOTH EYES DAILY@2300 [facility] Last Admin: 07/16/18 00:02 Dose: 1 drop Methylprednisolone Sodium Succinate (Solu-Medrol 40 Mg) 40 mg IV Q8H [facility] Last Admin: 07/16/18 16:23 Dose: 40 mg Multivitamins/Minerals (Theragran/Minerals Tab*) 1 tab PO DAILY [facility] Last Admin: 07/16/18 09:56 Dose: Not Given Nicotine (Nicotine Patch 21 Mg/24 Hr*) 1 patch TRANSDERM BEDTIME [facility] Last Admin: 07/15/18 20:08 Dose: 1 patch Pharmacy Consult (Zosyn Per Pharmacy*) 1 note FOLLOW UP .ZOSYN PER PHARMACY [facility] Pharmacy Profile Note (Nicotine Patch Removal Note*) 1 note PATCH OFF 0900 [facility] Last Admin: 07/16/18 09:56 Dose: Not Given Pilocarpine HCl (Salagen(Nf)) 5 mg PO TID [facility]; Protocol Last Admin: 07/16/18 14:51 Dose: Not Given Saliva Substitute (Biotene Moisturizing Mouth (Nf)) 1 spray MT Q6H [facility]; Protocol Last Admin: 07/16/18 16:23 Dose: 1 spray Vital Signs: Vital Signs: Temp Pulse Resp BP Pulse Ox 99.6 F 88 24 143/71 100 07/16/18 19:08 07/16/18 18:00 07/16/18 18:00 07/16/18 18:00 07/16/18 18:00 Patient Weight: Weight 38.918 kg Intake and Output: Intake & Output 07/14/18 07/15/18 07/16/18 07/17/18 06:59 06:59 06:59 06:59 Intake Total 900 1320 100 0 Output Total 1375 1770 1750 400 Balance -475 -450 -1650 -400 Weight 38.918 kg Intake: IV Fluids 400 100 ABX - ZOSYN 100 D5 1/2 NS with 40 meq Kcl 150 azithromycin 250 Oral 900 920 0 0 Output: Urine 1375 1770 1750 400 Other: # Bowel Movements 0 0 0 0 Estimated Stool Amount Medium # Voids 0 0 ADLs: Meal Record Start: 07/09/18 18: 31 Freq: DAILY@0900,1400,1800 Status: Active Protocol: Created 07/09/18 18:31 System (Rec: 07/09/18 18:31 System MED-C02) Document 07/10/18 09:00 [id number] (Rec: 07/10/18 09:28 [id number] MED-C05) Document 07/10/18 12:56 [id number] (Rec: 07/10/18 12:56 [id number] MED-M01) Document 07/10/18 18:00 [id number] (Rec: 07/10/18 18:29 JUNE5 MED-C05) Document 07/11/18 09:00 [id number] (Rec: 07/11/18 13:33 [id number] MED-M04) Document 07/11/18 14:00 [id number] (Rec: 07/11/18 14:38 ZIT1075 MED-C11) Document 07/11/18 18:00 [id number] (Rec: 07/11/18 18:20 [id number] MED-C04) Document 07/12/18 09:00 [id number] (Rec: 07/12/18 12:37 [id number] MED-C09) Document 07/12/18 14:00 [id number] (Rec: 07/12/18 15:55 QQZ3607 MED-C09) Document 07/12/18 18:00 QAZ7923 (Rec: 07/12/18 18:46 KMD0186 MED-C09) Document 07/13/18 14:00 MVJ3756 (Rec: 07/13/18 17:00 [id number] MED-C11) Document 07/13/18 18:00 MUH7689 (Rec: 07/13/18 19:05 [id number] MED-C11) Document 07/14/18 09:00 [id number] (Rec: 07/14/18 10:52 [id number] MED-C11) Document 07/14/18 14:00 HGX9337 (Rec: 07/14/18 14:48 LRQ7250 MED-C11) Document 07/14/18 18:00 KMW0969 (Rec: 07/14/18 18:47 [id number] MED-C05) Document 07/15/18 09:00 QCV5311 (Rec: 07/15/18 15:32 [id number] MED-C09) Document 07/15/18 14:00 DHI9553 (Rec: 07/15/18 15:32 [id number] MED-C09) Document 07/16/18 08:23 RXC9565 (Rec: 07/16/18 08:23 [id number] MED-C09) Document 07/16/18 12:40 [id number] (Rec: 07/16/18 12:40 KZQ7672 MED-C09) Document 07/16/18 17:18 [id number] (Rec: 07/16/18 17:18 [id number] ICU-C06) ADLs: Meal Record Start: 07/16/18 12: 43 Freq: 09,13,18 Status: Inactive Protocol: Created 07/16/18 12:43 [id number] (Rec: 07/16/18 12:43 [id number] ICU-C25) Document 07/16/18 13:00 [id number] (Rec: 07/16/18 13:54 [id number] ICU-C07) Document 07/16/18 17:18 [id number] (Rec: 07/16/18 17:18 [id number] ICU-C06) Intake and Output Start: 07/09/18 16: 12 Freq: Status: Active Protocol: Created 07/09/18 16:12 System (Rec: 07/09/18 16:12 System ED-C24) Intake and Output Start: 07/09/18 18: 31 Freq: DAILY@0600,1400,2200 Status: Active Protocol: Created 07/09/18 18:31 System (Rec: 07/09/18 18:31 System MED-C02) Document 07/09/18 21:59 [id number] (Rec: 07/09/18 22:00 [id number] MED-C07) Document 07/10/18 06:00 [id number] (Rec: 07/10/18 06:02 TKG0943 MED-C07) Document 07/10/18 14:00 SFZ8138 (Rec: 07/10/18 14:17 BSK7311 MED-C05) Document 07/10/18 21:55 [id number] (Rec: 07/10/18 21:56 VBO1956 MED-C15) Document 07/11/18 05:40 [id number] (Rec: 07/11/18 05:41 [id number] MED-M18) Document 07/11/18 14:00 CQA4607 (Rec: 07/11/18 14:38 QZX5043 MED-C11) Document 07/11/18 22:00 MOZ8235 (Rec: 07/11/18 23:16 [id number] MED-C07) Document 07/12/18 05:02 EDC4251 (Rec: 07/12/18 05:03 WMI8270 MED-C07) Document 07/12/18 14:00 CZP1128 (Rec: 07/12/18 15:54 JVW1819 MED-C09) Document 07/12/18 22:00 IHZ4709 (Rec: 07/12/18 22:23 HAU3064 MED-C11) Document 07/13/18 05:28 UBG9022 (Rec: 07/13/18 05:30 XCU2459 MED-M16) Document 07/13/18 14:00 BCB8185 (Rec: 07/13/18 17:00 [id number] MED-C11) Document 07/13/18 21:52 JFM6673 (Rec: 07/13/18 21:53 [id number] MED-C07) Document 07/14/18 06:00 HTW8114 (Rec: 07/14/18 06:32 [id number] MED-C07) Document 07/14/18 14:00 BJE2060 (Rec: 07/14/18 14:48 ROH0658 MED-C11) Document 07/14/18 22:00 NNB3430 (Rec: 07/14/18 23:20 IBG2468 MED-C05) Document 07/15/18 05:33 UJB0716 (Rec: 07/15/18 05:33 [id number] MED-C13) Document 07/15/18 09:00 XSB6395 (Rec: 07/15/18 09:58 DCC6224 MED-C11) Document 07/15/18 14:00 BQV7075 (Rec: 07/15/18 15:32 MKX1712 MED-C09) Document 07/15/18 21:50 [id number] (Rec: 07/15/18 21:52 SXQ5565 MED-C05) Document 07/16/18 05:54 QDC3057 (Rec: 07/16/18 05:55 DFR3402 MED-C04) Document 07/16/18 13:57 AST6576 (Rec: 07/16/18 13:57 [id number] ICU-C07) Document 07/16/18 16:36 MPQ7212 (Rec: 07/16/18 16:36 ADV3417 ICU-C06) Document 07/16/18 18:40 [id number] (Rec: 07/16/18 18:40 [id number] ICU-C25) Intake and Output Start: 07/16/18 12: 43 Freq: Q1HR Status: Inactive Protocol: Created 07/16/18 12:43 [id number] (Rec: 07/16/18 12:43 QCN2200 ICU-C25) Document 07/16/18 13:00 [id number] (Rec: 07/16/18 13:54 [id number] ICU-C07) Eyes: No Scleral Icterus Ears/Nose/Mouth/Throat: Mucous Membranes Moist Neck: NL Appearance and Movements; NL JVP, Trachea Midline Cardiovascular: NL Sounds; No Murmurs; No JVD, RRR Abdominal: NL Sounds; No Tenderness; No Distention Extremities: No Edema Neurological: Alert and Oriented x 3 - Assessment Assessment: 88 yo male with aspiration pneumonia, chest nodules and weight loss guarded prognosis - Plan Consult Plan (MU): Palliative Plan: Long discussion with pt who decided against CPR but would like a 5-7 day trial of intubation if he gets worse. He doesn't want a PEG tube or a tracheostomy. MOLST and HCP completed both are on the chart. Pt has new lung nodules which will be followed as an outpatient by Dr. Gamble, oncology. Currently pt's biggest issue is the result of his swallow test showing he aspirates any food consistency. Neurology is evaluating pt for muscle weakness like [place] Lambert. GI felt a PEG tube would not help the aspiration. Pt will have recurrent issues of aspiration pneumonia and malnutrition. Once respiratory issues are stable pt will need PT and MAGDALENO stay to help with deconditioning. Prognosis is guarded. Pt may benefit from hospice which was not discussed today. KPS 30%, PPS 40% - Time On Unit Date of Evaluation: 07/16/18 Hospice Consult Time in: 14:30 Hospice Consult Time Out: 16:00 Hospice Consult Time Total: 90 > 50% of Time Spend In Counseling or Coordinating Care: Yes
[2018-07-16] MEDS: Nicotine PATCH 21 MG/24 HR* PATCH TRANSDERM SCH (21:13)
[2018-07-17] MEDS: ZOSYN 3.375 GM Q8H per EXTENDED INFUSION IVPB SCH ×6 (04:39→20:47)
[2018-07-17] MEDS: CMCS: Saliva Substitute (NF) 1 SPRAY BTL MT SCH ×4 (04:39→22:20)
[2018-07-17 05:51] LABS: ABS Basophils 0.2 10^3/ul (0-0.2); ABS Lymphocytes 0.1 10^3/ul (1.0-4.8); ABS Monocytes 0.2 10^3/ul (0-0.8); ABS Neutrophils 11.4 10^3/ul (1.5-7.7); Hematocrit 37 % (42-52); Hemoglobin 11.9 g/dL (14.0-18.0); Lymphocyte % 0.9 %; Mean Corpuscular HGB Conc 33 g/dL (31-36); Mean Corpuscular Hemoglobin 31 pg (27-31); Mean Corpuscular Volume 94 fL (80-94); Mean Platelet Volume 8.6 fL (7.4-10.4); Platelet Count 266 10^3/uL (150-450); Red Blood Count 3.87 10^6 /uL (4.18-5.48); Red Cell Distribution Width 14 % (10.5-15); White Blood Count 11.9 10^3/uL (3.5-10.8)
[2018-07-17 06:08] LABS: Albumin 2.6 g/dL (3.2-5.2); BUN/Creatinine Ratio 25.6 (8-20); Calcium 8.8 mg/dL (8.6-10.3); EGFR African American 71.2 (>60); EGFR Non-African American 58.8 (>60); Globulin 2.5 g/dL (2-4); Total Bilirubin 0.4 mg/dL (0.2-1.0); Total Protein 5.1 g/dL (6.4-8.9)
[2018-07-17 06:09] LABS: Potassium 5.6 mmol/L (3.5-5.0)
[2018-07-17] MEDS: Nicotine Patch Removal NOTE PATCH OFF SCH (09:01)
[2018-07-17] MEDS: Multivitamins/Minerals TAB PO SCH (09:01)
[2018-07-17] MEDS: methylPREDNISolone SOD 40 MG* 1 ML VIAL IV SCH ×3 (09:02→23:33)
[2018-07-17] MEDS: PILOCARPINE 5 MG PO SCH ×3 (09:04→20:35)
[2018-07-17] MEDS: Heparin VIAL(*) 5000 UNITS/ML VIAL (FIVE THOUSAND) SUBCUT SCH ×2 (09:05→20:40)
--- NOTE | 2018-07-17 10:59 | PN ---
Date of Service: 07/17/18 Critical Care Services: significant improvement in ABG's patient remains AO times 3 Vital Signs: Temp Pulse Resp BP SpO2 FiO2 97 F 79 24 138/67 100 50 07/17/18 07:14 07/17/18 10:00 07/17/18 10:00 07/17/18 10:00 07/17/18 10:00 07/17 08:01 Physical Exam: Gen: Cachetic. AO times 3. Less SOB with speaking. Lungs:Decreased BS's, crackles bases Cardiac: RRR Abdomen: +BS, Soft, NTP. Cachetic Extremities: No LISA Neuro: moving all extremities Fluid Balance (Past 24 Hours): I= O= Net Intake & Output 07/15/18 07/16/18 07/17/18 07/18/18 06:59 06:59 06:59 06:59 Intake Total 3666 617 4293 Output Total 1770 1750 750 25 Balance -450 -1650 827 -25 Weight 85 lb 12.8 oz 86 lb 11.397 oz Intake: IV Fluids 114 790 3167 ABX - ZOSYN 100 131 D5 1/2 NS with 40 meq Kcl 150 1227 azithromycin 250 IVPB 219 D5 1/2 NS with 40 meq Kcl 219 Oral 920 0 0 Output: Urine 1770 1750 750 25 Other: # Bowel Movements 0 0 0 Estimated Stool Amount Medium # Voids 0 0 Labs: Laboratory Results - last 24 hr 07/16/18 07/17/18 07/17/18 11:50 05:35 05:35 WBC 11.9 H RBC 3.87 L Hgb 11.9 L Hct 37 L MCV 94 MCH 31 MCHC 33 RDW 14 Plt Count 266 MPV 8.6 Neut % (Auto) 96.2 Lymph % (Auto) 0.9 Guthrie % (Auto) 1.5 Eos % (Auto) 0.0 Baso % (Auto) 1.4 Absolute Neuts (auto) 11.4 H Absolute Lymphs (auto) 0.1 L Absolute Monos (auto) 0.2 Absolute Eos (auto) 0.0 Absolute Basos (auto) 0.2 Absolute Nucleated RBC 0.0 Nucleated RBC % 0.0 Patient Temperature Not Reportable ABG pH 7.44 ABG pH (Temp Correct) Not Reportable ABG pCO2 40 ABG pCO2 (Temp Corrct Not Reportable ABG pO2 54 L* ABG pO2 (Temp Correct Not Reportable ABG HCO3 26.8 ABG O2 Saturation 88.0 L ABG Base Excess 2.8 H Respiration Rate Not Reportable O2 Delivery Device oxymask Ventilator Type Not Reportable Vent Mode Not Reportable FiO2 15 Inspiratory Time Not Reportable PEEP Not Reportable Pressure Support Not Reportable Pressure Control Not Reportable EPAP Not Reportable IPAP Not Reportable BiPAP Not Reportable Sodium 133 L Potassium 5.6 H Chloride 102 Carbon Dioxide 27 Anion Gap 4 BUN 30 H Creatinine 1.17 Est GFR ( Amer) 71.2 Est GFR (Non-Af Amer) 58.8 BUN/Creatinine Ratio 25.6 H Glucose 168 H Calcium 8.8 Total Bilirubin 0.40 AST 13 ALT 11 Alkaline Phosphatase 74 Total Protein 5.1 L Albumin 2.6 L Globulin 2.5 Albumin/Globulin Ratio 1.0 07/17/18 06:40 WBC RBC Hgb Hct MCV MCH MCHC RDW Plt Count MPV Neut % (Auto) Lymph % (Auto) Guthrie % (Auto) Eos % (Auto) Baso % (Auto) Absolute Neuts (auto) Absolute Lymphs (auto) Absolute Monos (auto) Absolute Eos (auto) Absolute Basos (auto) Absolute Nucleated RBC Nucleated RBC % Patient Temperature ABG pH 7.37 ABG pH (Temp Correct) ABG pCO2 51 H ABG pCO2 (Temp Corrct ABG pO2 171 H ABG pO2 (Temp Correct ABG HCO3 27.4 ABG O2 Saturation 100.0 H ABG Base Excess 3.1 H Respiration Rate O2 Delivery Device Ventilator Type Vent Mode FiO2 Inspiratory Time PEEP Pressure Support Pressure Control EPAP IPAP BiPAP Sodium Potassium Chloride Carbon Dioxide Anion Gap BUN Creatinine Est GFR ( Amer) Est GFR (Non-Af Amer) BUN/Creatinine Ratio Glucose Calcium Total Bilirubin AST ALT Alkaline Phosphatase Total Protein Albumin Globulin Albumin/Globulin Ratio Impression: #COPD #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 patient refused NGT or OGT for tube feeds. He was offered TPN but wanted time to consider with his proxy. Yesterday, he said he would take the risk of aspiration PNA to take ensure/apple sauce but today he wanted time to think further about PO options and its risks. [employer] will d/w him further today and tomorrow. patient can transfer to floor Critical Care Time:
[2018-07-17] MEDS: D5NS 0.9% 1000 ML BAG* 1,000 ML IV SCH (14:06)
[2018-07-17 15:51] LABS: Aldolase 9.9 U/L (<7.7)
[2018-07-17] MEDS: Nicotine PATCH 21 MG/24 HR* PATCH TRANSDERM SCH (20:42)
[2018-07-17] MEDS: Latanoprost 0.005%* 2.5 ml BTL BOTH EYES SCH (22:20)
[2018-07-18] MEDS: ZOSYN 3.375 GM Q8H per EXTENDED INFUSION IVPB SCH ×6 (04:28→21:07)
[2018-07-18] MEDS: CMCS: Saliva Substitute (NF) 1 SPRAY BTL MT SCH ×4 (04:30→23:02)
[2018-07-18 06:17] LABS: ABS Lymphocytes 0.1 10^3/ul (1.0-4.8); ABS Monocytes 0.3 10^3/ul (0-0.8); ABS Neutrophils 10.2 10^3/ul (1.5-7.7); Hematocrit 37 % (42-52); Hemoglobin 12.3 g/dL (14.0-18.0); Lymphocyte % 1.2 %; Mean Corpuscular HGB Conc 33 g/dL (31-36); Mean Corpuscular Hemoglobin 32 pg (27-31); Mean Corpuscular Volume 94 fL (80-94); Mean Platelet Volume 8.8 fL (7.4-10.4); Nucleated Red Blood Cells % 0.1; Platelet Count 299 10^3/uL (150-450); Red Blood Count 3.88 10^6 /uL (4.18-5.48); Red Cell Distribution Width 14 % (10-15); White Blood Count 10.7 10^3/uL (3.5-10.8)
[2018-07-18 06:31] LABS: ALT 11 U/L (7-52); Albumin 2.7 g/dL (3.2-5.2); Albumin/Globulin Ratio 1.1 (1-3); Alkaline Phosphatase 67 U/L (34-104); BUN/Creatinine Ratio 25.9 (8-20); Blood Urea Nitrogen 29 mg/dL (6-24); CO2 Carbon Dioxide 26 mmol/L (22-32); Calcium 8.3 mg/dL (8.6-10.3); Chloride 104 mmol/L (101-111); EGFR African American 74.9 (>60); EGFR Non-African American 61.9 (>60); Globulin 2.4 g/dL (2-4); Glucose 132 mg/dL (70-100); Sodium 136 mmol/L (135-145); Total Protein 5.1 g/dL (6.4-8.9)
[2018-07-18 06:34] LABS: Anion Gap 6 mmol/L (2-11)
[2018-07-18] MEDS: D5NS 0.9% 1000 ML BAG* 1,000 ML IV SCH ×2 (06:54→23:34)
--- NOTE | 2018-07-18 08:11 | PN ---
Subjective Date of Service: 07/18/18 Length of Stay: 9 Days Interval History: Pt examined today at the bedside. He states today he is feeling fatigued. He states he feels short of breath with movement. He denies chest pain. Denies abdominal pain. Denies vomiting. States that he does not have trouble swallowing but that the food does not go where it is suppose to. Review of Systems: Denied CP, SOB, or palpitations. Family History: Unchanged from Admission Social History: Unchanged from Admission Past Medical History: Unchanged from Admission Objective Active Medications: Albuterol (Ventolin 2.5 Mg/3 Ml Neb.Meme*) 2.5 mg INH Q4H PRN PRN Reason: SOB/WHEEZING Heparin Sodium (Porcine) (Heparin Vial(*)) 5,000 units SUBCUT Q12HR [facility] Last Admin: 07/17/18 20:40 Dose: 5,000 units Piperacillin Sod/Tazobactam (Sod 3.375 gm/ Sodium Chloride) 100 mls @ 25 mls/ hr IVPB Q8H [facility] Last Admin: 07/18/18 04:28 Dose: 25 mls/hr Dextrose/Sodium Chloride (D5ns 0.9% 1000 Ml Bag*) 1,000 mls @ 75 mls/hr IV PER RATE [facility] Last Admin: 07/18/18 06:54 Dose: 75 mls/hr Latanoprost (Xalatan 0.005%*) 1 drop BOTH EYES DAILY@2300 [facility] Last Admin: 07/17/18 22:20 Dose: 1 drop Methylprednisolone Sodium Succinate (Solu-Medrol 40 Mg) 40 mg IV Q8H [facility] Last Admin: 07/17/18 23:33 Dose: 40 mg Multivitamins/Minerals (Theragran/Minerals Tab*) 1 tab PO DAILY [facility] Last Admin: 07/17/18 09:01 Dose: Not Given Nicotine (Nicotine Patch 21 Mg/24 Hr*) 1 patch TRANSDERM BEDTIME [facility] Last Admin: 07/17/18 20:42 Dose: 1 patch Pharmacy Consult (Zosyn Per Pharmacy*) 1 note FOLLOW UP .ZOSYN PER PHARMACY [facility] Pharmacy Profile Note (Nicotine Patch Removal Note*) 1 note PATCH OFF 0900 [facility] Last Admin: 07/17/18 09:01 Dose: Not Given Pilocarpine HCl (Salagen(Nf)) 5 mg PO TID [facility]; Protocol Last Admin: 07/17/18 20:35 Dose: Not Given Saliva Substitute (Biotene Moisturizing Mouth (Nf)) 1 spray MT Q6H [facility]; Protocol Last Admin: 07/18/18 04:30 Dose: Not Given Vital Signs 07/17/18 07/17/18 07/17/18 09:00 09:02 10:00 Temperature Pulse Rate 84 85 79 Respiratory 10 10 24 Rate Blood Pressure 138/67 (mmHg) O2 Sat by Pulse 93 95 100 Oximetry 07/17/18 07/17/18 07/17/18 11:00 11:16 12:00 Temperature 97 F Pulse Rate 85 86 Respiratory 12 30 Rate Blood Pressure 117/82 (mmHg) O2 Sat by Pulse 96 100 Oximetry 07/17/18 07/17/18 07/17/18 12:01 13:00 14:00 Temperature Pulse Rate 82 66 78 Respiratory 32 15 16 Rate Blood Pressure 157/79 143/92 144/70 (mmHg) O2 Sat by Pulse 100 100 100 Oximetry 07/17/18 07/17/18 07/17/18 15:00 15:50 19:38 Temperature 97.7 F 97.3 F Pulse Rate 79 89 87 Respiratory 23 22 25 Rate Blood Pressure 153/88 135/70 136/68 (mmHg) O2 Sat by Pulse 100 93 98 Oximetry 07/17/18 07/17/18 07/18/18 20:00 23:13 03:10 Temperature 97.4 F Pulse Rate 80 85 Respiratory 20 32 24 Rate Blood Pressure 126/45 (mmHg) O2 Sat by Pulse 99 98 Oximetry 07/18/18 07/18/18 03:24 07:26 Temperature 97.3 F Pulse Rate 80 86 Respiratory 32 20 Rate Blood Pressure 138/66 (mmHg) O2 Sat by Pulse 98 96 Oximetry Intake and Output Last 24 Hours 07/16/18 07/17/18 07/18/18 07/19/18 06:59 06:59 06:59 06:59 Intake Total 100 1577 1191 Output Total 1750 876 575 Balance -1650 827 616 Weight 85 lb 12.8 oz 86 lb 11.397 oz Intake: IV Fluids 100 1358 1043 ABX - ZOSYN 100 131 678 D5 1/2 NS with 40 meq Kcl 1227 365 IVPB 219 148 ABX - ZOSYN 148 D5 1/2 NS with 40 meq Kcl 219 Oral 0 0 0 Output: Urine 1750 750 575 Other: # Bowel Movements 0 0 0 Estimated Stool Amount Medium # Voids 0 0 0 Oxygen Devices in Use Now: Nasal Cannula Neurology Exam: General: Cachetic appearing and in no acute distress HEENT: Normocephelic/atraumatic, sclera anicteric, mucous membranes moist, no tongue fasciculation noted Neck: Supple Chest: Upper lobe wheezing bilaterally, Cardiovascular: Regular rate and rhythm without murmurs, rubs, gallops Abdomen: Soft, non-tender/non-distended Extremities: No clubbing, cyanosis, or edema Neurological Findings: Awake, alert, and oriented to person, place, and time. Speech: fluent without dysarthria, repetition intact Cranial Nerve: PERRL, EOM intact, VFF, no nystagmus, face symmetric bilaterally , facial sensation intact, hearing intact to finger rub bilaterally, palate elevates symmetrically, tongue midline, SCM and Trapezius 5/5. Motor: 5/5 distal in the upper extremities, 4 plus to the bicep bilaterally 5/5 distally and proximal to the lower extremities, tone/bulk decreased, Sensation: intact to LT bilaterally upper and lower extremities Deep Tendon Reflex: 3+ symmetric in the lower extremities, Babinski - down going , 2 plus in upper extremities Finger to nose, rapid alternating movements intact without tremor, no dysdiadochokinesia Gait: not tested Result Diagrams: 07/18/18 05:31 07/18/18 05:31 Additional Lab and Data: Laboratory Results - last 24 hr Microbiology and Other Data: . Assessment/Plan Assessment: Mr. Sherman is an 88 yo male with a PMH for COPD, RCC, prostate cancer, who is admitted for COPD exacerbation requiring high amount of oxygen with hospitalization complicated by aspiration. Dysphasia: Patient was noted on swallowing study to aspirate with honey, nectar and pudding thick liquids. MRI obtained and shows not acute findings. VGCC and Myasthenia panel, anti musk panel, paraneoplastic panel pending. Motor neuron disease is in the differential CK normal and myoglobin, aldolase 9.9. . Agree with continuing NPO, Consider Peg tube but will defer this to primary team and GI . I would continue speech therapy. Will consider EMG NCS depending on lab studies that are pending. COPD exacerbation Per primary team Lung Nodules Oncology following Severe Protein malnutrition Pt will need enteral nutrition, however he is undecided on PEg tube placement , He is aware of the risk of continue to take PO intact, Will await lab results. Further recommendations to follow based on results.
[2018-07-18] MEDS: PILOCARPINE 5 MG PO SCH ×3 (09:29→21:09)
[2018-07-18] MEDS: methylPREDNISolone SOD 40 MG* 1 ML VIAL IV SCH ×2 (09:29→15:08)
[2018-07-18] MEDS: Heparin VIAL(*) 5000 UNITS/ML VIAL (FIVE THOUSAND) SUBCUT SCH ×2 (09:29→21:08)
[2018-07-18] MEDS: Nicotine Patch Removal NOTE PATCH OFF SCH (09:31)
[2018-07-18] MEDS: Multivitamins/Minerals TAB PO SCH (09:31)
[2018-07-18 10:18] LABS: Potassium Redraw 4.9 mmol/L (3.5-5.0)
--- NOTE | 2018-07-18 10:51 | PN ---
Subjective Date of Service: 07/18/18 Interval History: Pt is eager to go home, and is upset with continued hospitalization. He continues to have dysphagia without painful swallowing. He denies globus sensation. He c/o pressure sensation under the ribs. He denies cough, wheeze, fever, and states that SOB has decreased, but he is still requiring 5L O2 at rest. He c/o decreased strength, but states that this is generalized and does not increase or decrease throughout the day. Denies vision changes. Denies hematuria, hematochezia, melena. Pt not likely a candidate for TPN, as this is likely a progressive problem. Deciding on PEG tube or PO intake with the high risk of aspiration leading to pna and possibly demise. Family History: Unchanged from Admission Social History: Unchanged from Admission Past Medical History: Unchanged from Admission Objective Active Medications: Albuterol (Ventolin 2.5 Mg/3 Ml Neb.Meme*) 2.5 mg INH Q4H PRN Heparin Sodium (Porcine) (Heparin Vial(*)) 5,000 units SUBCUT Q12HR [facility] Piperacillin Sod/Tazobactam (Sod 3.375 gm/ Sodium Chloride) 100 mls @ 25 mls/ hr IVPB Q8H [facility] Dextrose/Sodium Chloride (D5ns 0.9% 1000 Ml Bag*) 1,000 mls @ 75 mls/hr IV PER RATE [facility] Latanoprost (Xalatan 0.005%*) 1 drop BOTH EYES DAILY@2300 [facility] Methylprednisolone Sodium Succinate (Solu-Medrol 40 Mg) 40 mg IV Q8H [facility] Multivitamins/Minerals (Theragran/Minerals Tab*) 1 tab PO DAILY [facility] Nicotine (Nicotine Patch 21 Mg/24 Hr*) 1 patch TRANSDERM BEDTIME [facility] Pharmacy Consult (Zosyn Per Pharmacy*) 1 note FOLLOW UP .ZOSYN PER PHARMACY [facility] Pharmacy Profile Note (Nicotine Patch Removal Note*) 1 note PATCH OFF 0900 [facility] Pilocarpine HCl (Salagen(Nf)) 5 mg PO TID [facility]; Protocol Saliva Substitute (Biotene Moisturizing Mouth (Nf)) 1 spray MT Q6H [facility]; Protocol Vital Signs: Temp Pulse Resp BP Pulse Ox 97.2 F 86 18 147/69 96 07/18/18 07:00 07/18/18 07:26 07/18/18 08:00 07/18/18 07:00 07/18/18 07:26 Oxygen Devices in Use Now: Nasal Cannula Appearance: Pis cachectic and malnourished appearing. He is appropriate, cooperative. He is breathing comfortably on 5L O2 and appears to be in no acute distress. Eyes: No Scleral Icterus, PERRLA Ears/Nose/Mouth/Throat: NL Teeth, Lips, Gums, Mucous Membranes Moist Neck: NL Appearance and Movements; NL JVP, Trachea Midline Respiratory: Symmetrical Chest Expansion and Respiratory Effort, - - Decreased breath sounds without wheeze, rhonchi, rales Cardiovascular: NL Sounds; No Murmurs; No JVD, RRR, No Edema Abdominal: NL Sounds; No Tenderness; No Distention, No Hepatosplenomegaly Extremities: No Edema, No Clubbing, Cyanosis Neurological: Alert and Oriented x 3 - Nutrition: Malnutrition Diagnosis/Plan Malnutrition Assessment by Registered Dietitian: Malnutrition Assessment Clinical Characteristics Acute,Severe Malnutrition Assessment: inadequate oral intake: <or= 50% of EEE x > 5 Criteria days severe wt loss: 10.5% x 3 weeks to 22.7% x several months evidence of muscle/fat wasting: moderate-severe temporal and clavicle wasting Malnutrition Assessment: suggest liberalizing to REGULAR diet given Interventions severe wt loss, underwt status Ensure Enlive with meals per d/w pt: 350 kcals, 20 g pro per serving Malnutrition Assessment: Goals 1. Intake will improve to at least 50% of meals 2. Intake at meals + supplementation will be adequate to promote wt gain, preserve lean body mass 3. Cr will improve 4. Adequate glycemic control in setting of steroid tx Result Diagrams: 07/18/18 05:31 07/18/18 09:34 Additional Lab and Data: Laboratory Results - last 24 hr Microbiology and Other Data: . Assess/Plan/Problems-Billing Assessment: Mr. Sherman is an 88 yo male with a PMH for COPD, RCC, prostate cancer, who is admitted for COPD exacerbation requiring high amount of oxygen with hospitalization complicated by aspiration. - Patient Problems (1) COPD exacerbation Comment: - Emphysema noted on CTA with known COPD history - Likely being continually exacerbated by aspirations - Recent CXR showing new infiltrate- Zosyn started 07/15 - Spiriva previously d/c'd d/t dry mouth - Completed 5 day course of azithromycin - Flutter valve - Continue Zosyn, methyl-pred, nebs - Changed to IV steroid in ICU yesterday; will transition to PO prednisone in a.m., due to decrease in wheeze - Will likely require home O2 if d/c to home (2) Swallowing difficulty Comment: - Nursing noted some swallowing difficulties - Speech Therapy evaluated and recommended mechanical ground, nectar thick liquids, and crushed medications - Difficulties continued and swallow evaluation showed aspiration with all consistencies; made NPO per recommendations of [facility] - Would not be TPN candidate - Appreciate Neurology consult; possibility of myasthenia gravis or Eaton Lambert; labs have been sent out and are pending at this point - GI indicates that he is not a candidate for a PEG as that will not prevent further aspiration - Discussed with patient and he is agreeable with plan to start honey thick full liquids with the understanding that he will continue to aspirate and will very likely develop aspiration pneumonia - Continue IVF (3) Lung nodules Comment: - Enlarging left upper and new superior lingular spiculated nodules in lung - Oncology following - Possible malignancy; will need repeat CT in 3 months (4) Acute on chronic kidney failure Comment: - Creatinine at baseline (5) DVT prophylaxis Comment: - Heparin SQ (6) DNR (do not resuscitate) Status and Disposition: Inpatient. Discharge when stable. Deciding on PEG vs PO intake with risk or aspiration pneumonia. Will likely need home O2 if d/c.
[2018-07-18] MEDS: Nicotine PATCH 21 MG/24 HR* PATCH TRANSDERM SCH (21:09)
[2018-07-18] MEDS: Latanoprost 0.005%* 2.5 ml BTL BOTH EYES SCH (23:02)
[2018-07-19] MEDS: CMCS: Saliva Substitute (NF) 1 SPRAY BTL MT SCH ×4 (03:49→22:00)
[2018-07-19] MEDS: ZOSYN 3.375 GM Q8H per EXTENDED INFUSION IVPB SCH ×6 (05:19→21:21)
[2018-07-19 06:00] LABS: ABS Lymphocytes 0.1 10^3/ul (1.0-4.8); ABS Monocytes 0.7 10^3/ul (0-0.8); ABS Neutrophils 9.5 10^3/ul (1.5-7.7); Hematocrit 39 % (42-52); Hemoglobin 13.1 g/dL (14.0-18.0); Lymphocyte % 1.2 %; Mean Corpuscular HGB Conc 33 g/dL (31-36); Mean Corpuscular Hemoglobin 31 pg (27-31); Mean Corpuscular Volume 94 fL (80-94); Mean Platelet Volume 8.7 fL (7.4-10.4); Platelet Count 287 10^3/uL (150-450); Red Blood Count 4.18 10^6 /uL (4.18-5.48); Red Cell Distribution Width 14 % (10-15); White Blood Count 10.4 10^3/uL (3.5-10.8)
[2018-07-19 06:18] LABS: Albumin 2.8 g/dL (3.2-5.2); Albumin/Globulin Ratio 1.2 (1-3); BUN/Creatinine Ratio 25.7 (8-20); Calcium 8.3 mg/dL (8.6-10.3); EGFR African American 74.1 (>60); EGFR Non-African American 61.2 (>60); Globulin 2.3 g/dL (2-4); Potassium 4.6 mmol/L (3.5-5.0); Total Bilirubin 0.5 mg/dL (0.2-1.0); Total Protein 5.1 g/dL (6.4-8.9)
[2018-07-19] MEDS ORDERED: predniSONE TAB* 20 MG PO SCH (09:00)
[2018-07-19] MEDS: predniSONE TAB* 20 MG PO SCH (09:39)
[2018-07-19] MEDS: Heparin VIAL(*) 5000 UNITS/ML VIAL (FIVE THOUSAND) SUBCUT SCH ×2 (09:40→21:25)
[2018-07-19] MEDS: Multivitamins/Minerals TAB PO SCH (09:40)
[2018-07-19] MEDS: Nicotine Patch Removal NOTE PATCH OFF SCH (09:41)
[2018-07-19] MEDS: PILOCARPINE 5 MG PO SCH ×3 (09:45→21:20)
[2018-07-19] MEDS: Nicotine PATCH 21 MG/24 HR* PATCH TRANSDERM SCH (10:59)
[2018-07-19] MEDS: D5NS 0.9% 1000 ML BAG* 1,000 ML IV SCH (13:33)
--- NOTE | 2018-07-19 16:50 | PN ---
Subjective Date of Service: 07/19/18 Interval History: Pt is doing well today. He is interested in discharge, but has notable desaturation with ambulation (85% on 15L) and is therefore unstable for discharge. He is agreeable to this. He has no SOB at rest, but remains on O2 at all times. He denies cough, except intentional cough after eating, as instructed by ST. He is tolerating PO intake with ST instructions. Family History: Unchanged from Admission Social History: Unchanged from Admission Past Medical History: Unchanged from Admission Objective Active Medications: Albuterol (Ventolin 2.5 Mg/3 Ml Neb.Meme*) 2.5 mg INH Q4H PRN PRN Reason: SOB/WHEEZING Heparin Sodium (Porcine) (Heparin Vial(*)) 5,000 units SUBCUT Q12HR [facility] Last Admin: 07/19/18 09:40 Dose: 5,000 units Piperacillin Sod/Tazobactam (Sod 3.375 gm/ Sodium Chloride) 100 mls @ 25 mls/ hr IVPB Q8H [facility] Last Admin: 07/19/18 13:34 Dose: 25 mls/hr Dextrose/Sodium Chloride (D5ns 0.9% 1000 Ml Bag*) 1,000 mls @ 75 mls/hr IV PER RATE [facility] Last Admin: 07/19/18 13:33 Dose: 75 mls/hr Latanoprost (Xalatan 0.005%*) 1 drop BOTH EYES DAILY@2300 [facility] Last Admin: 07/18/18 23:02 Dose: 1 drop Multivitamins/Minerals (Theragran/Minerals Tab*) 1 tab PO DAILY [facility] Last Admin: 07/19/18 09:40 Dose: Not Given Nicotine (Nicotine Patch 21 Mg/24 Hr*) 1 patch TRANSDERM DAILY [facility] Last Admin: 07/19/18 10:59 Dose: 1 patch Pharmacy Consult (Zosyn Per Pharmacy*) 1 note FOLLOW UP .ZOSYN PER PHARMACY [facility] Pharmacy Profile Note (Nicotine Patch Removal Note*) 1 note PATCH OFF 0900 [facility] Last Admin: 07/19/18 09:41 Dose: 1 note Pilocarpine HCl (Salagen(Nf)) 5 mg PO TID [facility]; Protocol Last Admin: 07/19/18 13:50 Dose: Not Given Prednisone (Deltasone Tab*) 40 mg PO DAILY [facility] Last Admin: 07/19/18 09:39 Dose: 40 mg Saliva Substitute (Biotene Moisturizing Mouth (Nf)) 1 spray MT Q6H [facility]; Protocol Last Admin: 07/19/18 15:46 Dose: 1 spray Vital Signs - 8 hr 07/19/18 07/19/18 07/19/18 11:20 11:56 15:49 Temperature 97.6 F 97.7 F Pulse Rate 84 101 Respiratory 24 24 Rate Blood Pressure 148/63 148/63 (mmHg) O2 Sat by Pulse 90 94 95 Oximetry Oxygen Devices in Use Now: Nasal Cannula Appearance: Pt is sitting up in bed with HOB elevated. He is cachectic and malnourished. He appears chronically ill. He is in no acute or respiratory distress, but noted to be on O2. Eyes: No Scleral Icterus, PERRLA Ears/Nose/Mouth/Throat: NL Teeth, Lips, Gums, Clear Oropharnyx, Mucous Membranes Moist Neck: NL Appearance and Movements; NL JVP, Trachea Midline Respiratory: Symmetrical Chest Expansion and Respiratory Effort, - - Breath sounds decreased without rhonchi, rales, wheeze Cardiovascular: NL Sounds; No Murmurs; No JVD, RRR, No Edema Abdominal: NL Sounds; No Tenderness; No Distention, No Hepatosplenomegaly Extremities: No Edema, No Clubbing, Cyanosis Neurological: Alert and Oriented x 3 - Nutrition: Malnutrition Diagnosis/Plan Malnutrition Assessment by Registered Dietitian: Malnutrition Assessment Clinical Characteristics Acute,Severe Malnutrition Assessment: inadequate oral intake: <or= 50% of EEE x > 5 Criteria days severe wt loss: 10.5% x 3 weeks to 22.7% x several months evidence of muscle/fat wasting: moderate-severe temporal and clavicle wasting Malnutrition Assessment: suggest liberalizing to REGULAR diet given Interventions severe wt loss, underwt status Ensure Enlive with meals per d/w pt: 350 kcals, 20 g pro per serving Malnutrition Assessment: Goals 1. Intake will improve to at least 50% of meals 2. Intake at meals + supplementation will be adequate to promote wt gain, preserve lean body mass 3. Cr will improve 4. Adequate glycemic control in setting of steroid tx Result Diagrams: 07/19/18 05:02 07/19/18 05:02 Additional Lab and Data: Laboratory Results - last 24 hr Microbiology and Other Data: . Assess/Plan/Problems-Billing Assessment: Mr. Sherman is an 88 yo male with a PMH for COPD, RCC, prostate cancer, who is admitted for COPD exacerbation requiring high amount of oxygen with hospitalization complicated by aspiration. - Patient Problems (1) COPD exacerbation Comment: - Emphysema noted on CTA with known COPD history - Likely being continually exacerbated by aspirations - Spiriva previously d/c'd d/t dry mouth - Completed 5 day course of azithromycin - Flutter valve - Continue Zosyn, prednisone, nebs - Will require home O2 if d/c to home (2) Pneumonia Comment: -Noted on CTA, likely aspiration -Afebrile with resolved leukocytosis -Continue IV zosyn (3) Swallowing difficulty Comment: - Nursing noted some swallowing difficulties - Would not be TPN candidate - Appreciate Neurology consult; possibility of myasthenia gravis or Eaton Lambert; labs have been sent out and are pending at this point - GI indicates that he is not a candidate for a PEG as that will not prevent further aspiration - Speech Therapy evaluated and recommended honey thick full liquid diet - Discussed with patient and he is agreeable with plan to start honey thick full liquids with the understanding that he will continue to aspirate and will likely continue to develop aspiration pneumonia - Continue IVF (4) Malnutrition Comment: -Dysphagia with aspiration -Not a candidate for PEG; will continue PO intake -Total protein 5.1; albumin 2.8 -Dr. Shelby to see tomorrow to discuss hospice options (5) Respiratory failure Comment: -SOB with new oxygen requirements -Ambulation sat is 85% on 15L -Continue O2; will need to be d/c on O2 (6) Lung nodules Comment: - Enlarging left upper and new superior lingular spiculated nodules in lung - Oncology following - Possible malignancy; will need repeat CT in 3 months (7) Acute on chronic kidney failure Comment: - Creatinine at baseline (8) DVT prophylaxis Comment: - Heparin SQ (9) DNR (do not resuscitate) Status and Disposition: Inpatient. Discharge when stable. Likely discharge on Hospice.
[2018-07-19] MEDS: Latanoprost 0.005%* 2.5 ml BTL BOTH EYES SCH (22:00)
[2018-07-20] MEDS: D5NS 0.9% 1000 ML BAG* 1,000 ML IV SCH ×2 (02:09→15:28)
[2018-07-20] MEDS: CMCS: Saliva Substitute (NF) 1 SPRAY BTL MT SCH ×4 (04:14→21:01)
[2018-07-20] MEDS: ZOSYN 3.375 GM Q8H per EXTENDED INFUSION IVPB SCH ×6 (05:23→21:00)
[2018-07-20 06:53] LABS: ABS Lymphocytes 0.3 10^3/ul (1.0-4.8); ABS Monocytes 0.8 10^3/ul (0-0.8); ABS Neutrophils 8.8 10^3/ul (1.5-7.7); Hematocrit 39 % (42-52); Mean Corpuscular HGB Conc 33 g/dL (31-36); Mean Corpuscular Hemoglobin 31 pg (27-31); Mean Corpuscular Volume 93 fL (80-94); Mean Platelet Volume 8.5 fL (7.4-10.4); Nucleated Red Blood Cells % 0.1; Platelet Count 288 10^3/uL (150-450); Red Blood Count 4.21 10^6 /uL (4.18-5.48); Red Cell Distribution Width 14 % (10-15); White Blood Count 9.9 10^3/uL (3.5-10.8)
[2018-07-20 07:10] LABS: Albumin 2.8 g/dL (3.2-5.2); Albumin/Globulin Ratio 1.2 (1-3); Calcium 8.2 mg/dL (8.6-10.3); EGFR African American 85.3 (>60); EGFR Non-African American 70.5 (>60); Globulin 2.4 g/dL (2-4); Potassium 4.4 mmol/L (3.5-5.0); Total Bilirubin 0.6 mg/dL (0.2-1.0); Total Protein 5.2 g/dL (6.4-8.9)
[2018-07-20] MEDS: Nicotine Patch Removal NOTE PATCH OFF SCH (08:47)
[2018-07-20] MEDS: Nicotine PATCH 21 MG/24 HR* PATCH TRANSDERM SCH (08:48)
[2018-07-20] MEDS: Heparin VIAL(*) 5000 UNITS/ML VIAL (FIVE THOUSAND) SUBCUT SCH ×2 (08:49→21:01)
[2018-07-20] MEDS: Multivitamins/Minerals TAB PO SCH (09:07)
[2018-07-20] MEDS: PILOCARPINE 5 MG PO SCH ×3 (09:07→21:02)
[2018-07-20] MEDS: predniSONE TAB* 20 MG PO SCH ×2 (09:08→09:49)
--- NOTE | 2018-07-20 16:26 | PN ---
Subjective Date of Service: 07/20/18 Interval History: Nursing reports episode of cough after eating, and audible rhonchi. Patient reports that breathing is better now. Denies fever or chills. denies abd pain n/v/d. Denies shortness of breath at this time Family History: Unchanged from Admission Social History: Unchanged from Admission Past Medical History: Unchanged from Admission Objective Active Medications: Albuterol (Ventolin 2.5 Mg/3 Ml Neb.Meme*) 2.5 mg INH Q4H PRN PRN Reason: SOB/WHEEZING Heparin Sodium (Porcine) (Heparin Vial(*)) 5,000 units SUBCUT Q12HR [facility] Last Admin: 07/20/18 08:49 Dose: 5,000 units Piperacillin Sod/Tazobactam (Sod 3.375 gm/ Sodium Chloride) 100 mls @ 25 mls/ hr IVPB Q8H [facility] Last Admin: 07/20/18 12:26 Dose: 25 mls/hr Dextrose/Sodium Chloride (D5ns 0.9% 1000 Ml Bag*) 1,000 mls @ 75 mls/hr IV PER RATE [facility] Last Admin: 07/20/18 15:28 Dose: 75 mls/hr Latanoprost (Xalatan 0.005%*) 1 drop BOTH EYES DAILY@2300 [facility] Last Admin: 07/19/18 22:00 Dose: 1 drop Multivitamins (Theragran W/Minerals Liq*) 15 ml PO DAILY [facility] Nicotine (Nicotine Patch 21 Mg/24 Hr*) 1 patch TRANSDERM DAILY [facility] Last Admin: 07/20/18 08:48 Dose: 1 patch Pharmacy Consult (Zosyn Per Pharmacy*) 1 note FOLLOW UP .DARRELSYN PER PHARMACY [facility] Pharmacy Profile Note (Nicotine Patch Removal Note*) 1 note PATCH OFF 0900 [facility] Last Admin: 07/20/18 08:47 Dose: 1 note Pilocarpine HCl (Salagen(Nf)) 5 mg PO TID [facility]; Protocol Last Admin: 07/20/18 12:39 Dose: Not Given Prednisone (Deltasone Tab*) 40 mg PO DAILY [facility] Last Admin: 07/20/18 09:49 Dose: 40 mg Saliva Substitute (Biotene Moisturizing Mouth (Nf)) 1 spray MT Q6H [facility]; Protocol Last Admin: 07/20/18 15:23 Dose: 1 spray Vital Signs - 8 hr 07/20/18 07/20/18 07/20/18 09:00 11:43 15:00 Temperature 97.8 F 98.0 F Pulse Rate 103 94 98 Respiratory 30 36 38 Rate Blood Pressure 177/75 152/58 (mmHg) O2 Sat by Pulse 91 99 92 Oximetry Oxygen Devices in Use Now: Nasal Cannula Appearance: alert, appears comfortable resting in bed, no acute distress Eyes: No Scleral Icterus Ears/Nose/Mouth/Throat: Clear Oropharnyx, Mucous Membranes Moist Neck: NL Appearance and Movements; NL JVP, Trachea Midline, - Respiratory: Symmetrical Chest Expansion and Respiratory Effort, - - few scattered rhonchi bilat Cardiovascular: NL Sounds; No Murmurs; No JVD, No Edema Abdominal: NL Sounds; No Tenderness; No Distention Extremities: No Edema, No Clubbing, Cyanosis Neurological: Alert and Oriented x 3 Nutrition: Taking PO's - Nutrition: Malnutrition Diagnosis/Plan Malnutrition Assessment by Registered Dietitian: Malnutrition Assessment Clinical Characteristics Acute,Severe Malnutrition Assessment: inadequate oral intake: <or= 50% of EEE x > 5 Criteria days severe wt loss: 10.5% x 3 weeks to 22.7% x several months evidence of muscle/fat wasting: moderate-severe temporal and clavicle wasting Malnutrition Assessment: suggest liberalizing to REGULAR diet given Interventions severe wt loss, underwt status Ensure Enlive with meals per d/w pt: 350 kcals, 20 g pro per serving Malnutrition Assessment: Goals 1. Intake will improve to at least 50% of meals 2. Intake at meals + supplementation will be adequate to promote wt gain, preserve lean body mass 3. Cr will improve 4. Adequate glycemic control in setting of steroid tx Result Diagrams: 07/20/18 06:18 07/20/18 06:18 Additional Lab and Data: Laboratory Results - last 24 hr Microbiology and Other Data: . Assess/Plan/Problems-Billing Assessment: Mr. Sherman is an 88 yo male with a PMH for COPD, RCC, prostate cancer, who is admitted for COPD exacerbation requiring high amount of oxygen with hospitalization complicated by aspiration. - Patient Problems (1) COPD exacerbation Current Visit: No Status: Acute Code(s): J44.1 - CHRONIC OBSTRUCTIVE PULMONARY DISEASE W (ACUTE) EXACERBATION SNOMED Code(s): 338128221 Comment: - Emphysema noted on CTA with known COPD history - Likely being continually exacerbated by aspirations Completed 5 day course of azithromycin - Flutter valve - Continue Zosyn, prednisone, nebs - Will require home O2 if d/c to home (2) Pneumonia Current Visit: Yes Status: Acute Code(s): J18.9 - PNEUMONIA, UNSPECIFIED ORGANISM SNOMED Code(s): 306125237 Comment: -Noted on CTA, likely aspiration -Afebrile with resolved leukocytosis -Continue IV zosyn (3) Respiratory failure Current Visit: Yes Status: Acute Code(s): J96.90 - RESPIRATORY FAILURE, UNSP , UNSP W HYPOXIA OR HYPERCAPNIA SNOMED Code(s): 748282425 Comment: -SOB with new oxygen requirements -Ambulation sat is 85% on 15L- will repeat walking o2 today -Continue O2; will need to be d/c on O2 (4) JERO (acute kidney injury) Current Visit: No Status: Acute Code(s): N17.9 - ACUTE KIDNEY FAILURE, UNSPECIFIED SNOMED Code(s): 25370413 Comment: - Acute on CKD - likely pre-renal. - Improved (5) Lung nodules Current Visit: Yes Status: Acute Code(s): R91.8 - OTHER NONSPECIFIC ABNORMAL FINDING OF LUNG FIELD SNOMED Code(s): 081173554 Comment: - Enlarging left upper and new superior lingular spiculated nodules in lung - Oncology following - Possible malignancy; will need repeat CT in 3 months (6) DVT prophylaxis Current Visit: No Status: Acute Code(s): [id number] - SNOMED Code(s): 971560662 Comment: - Heparin SQ (7) DNR (do not resuscitate) Current Visit: Yes Status: Acute Status and Disposition: Inpatient. Discharge when stable. Likely discharge on Hospice.
[2018-07-20] MEDS: Latanoprost 0.005%* 2.5 ml BTL BOTH EYES SCH (23:03)
[2018-07-21] MEDS: ZOSYN 3.375 GM Q8H per EXTENDED INFUSION IVPB SCH ×6 (04:26→20:52)
[2018-07-21] MEDS: CMCS: Saliva Substitute (NF) 1 SPRAY BTL MT SCH ×4 (04:27→20:54)
[2018-07-21] MEDS: D5NS 0.9% 1000 ML BAG* 1,000 ML IV SCH (04:42)
[2018-07-21] MEDS: Nicotine PATCH 21 MG/24 HR* PATCH TRANSDERM SCH (07:56)
[2018-07-21] MEDS: PILOCARPINE 5 MG PO SCH ×3 (07:59→20:51)
[2018-07-21] MEDS: predniSONE TAB* 20 MG PO SCH (08:00)
[2018-07-21] MEDS: Nicotine Patch Removal NOTE PATCH OFF SCH (08:00)
[2018-07-21] MEDS: Heparin VIAL(*) 5000 UNITS/ML VIAL (FIVE THOUSAND) SUBCUT SCH ×2 (08:03→20:51)
[2018-07-21] MEDS: Multivitamins ADULT w/MIN LIQ* 15 ML UDC PO SCH (08:04)
--- NOTE | 2018-07-21 16:19 | PN ---
Subjective Date of Service: 07/21/18 Interval History: Patient reports no coughing with eating while sitting in the chair with meals yesterday. Denies chest pain. Denies fever or chills. walking o2 saturation yesterday was 90% on 10 liters - improved from previous walking o2 sat of 85% on 15 liters Family History: Unchanged from Admission Social History: Unchanged from Admission Past Medical History: Unchanged from Admission Objective Active Medications: Albuterol (Ventolin 2.5 Mg/3 Ml Neb.Meme*) 2.5 mg INH Q4H PRN PRN Reason: SOB/WHEEZING Heparin Sodium (Porcine) (Heparin Vial(*)) 5,000 units SUBCUT Q12HR [facility] Last Admin: 07/21/18 08:03 Dose: 5,000 units Piperacillin Sod/Tazobactam (Sod 3.375 gm/ Sodium Chloride) 100 mls @ 25 mls/ hr IVPB Q8H [facility] Last Admin: 07/21/18 14:04 Dose: 25 mls/hr Dextrose/Sodium Chloride (D5ns 0.9% 1000 Ml Bag*) 1,000 mls @ 75 mls/hr IV PER RATE [facility] Last Admin: 07/21/18 04:42 Dose: 75 mls/hr Latanoprost (Xalatan 0.005%*) 1 drop BOTH EYES DAILY@2300 [facility] Last Admin: 07/20/18 23:03 Dose: 1 drop Multivitamins (Theragran W/Minerals Liq*) 15 ml PO DAILY [facility] Last Admin: 07/21/18 08:04 Dose: 15 ml Nicotine (Nicotine Patch 21 Mg/24 Hr*) 1 patch TRANSDERM DAILY [facility] Last Admin: 07/21/18 07:56 Dose: 1 patch Pharmacy Consult (Zosyn Per Pharmacy*) 1 note FOLLOW UP .ZOSYN PER PHARMACY [facility] Pharmacy Profile Note (Nicotine Patch Removal Note*) 1 note PATCH OFF 0900 [facility] Last Admin: 07/21/18 08:00 Dose: 1 note Pilocarpine HCl (Salagen(Nf)) 5 mg PO TID [facility]; Protocol Last Admin: 07/21/18 14:05 Dose: Not Given Prednisone (Deltasone Tab*) 40 mg PO DAILY [facility] Last Admin: 07/21/18 08:00 Dose: 40 mg Saliva Substitute (Biotene Moisturizing Mouth (Nf)) 1 spray MT Q6H [facility]; Protocol Last Admin: 07/21/18 08:04 Dose: 1 spray Vital Signs - 8 hr 07/21/18 07/21/18 11:00 15:00 Temperature 97.4 F 97.3 F Pulse Rate 85 98 Respiratory 17 20 Rate Blood Pressure 133/71 147/76 (mmHg) O2 Sat by Pulse 98 100 Oximetry Oxygen Devices in Use Now: Nasal Cannula Appearance: alert, resting in bed, no acute distress Eyes: No Scleral Icterus Ears/Nose/Mouth/Throat: Clear Oropharnyx, Mucous Membranes Moist Neck: NL Appearance and Movements; NL JVP, Trachea Midline Respiratory: Symmetrical Chest Expansion and Respiratory Effort, - - diminished t/o bilat Cardiovascular: NL Sounds; No Murmurs; No JVD, No Edema Abdominal: NL Sounds; No Tenderness; No Distention Extremities: No Edema, No Clubbing, Cyanosis Skin: No Rash or Ulcers Neurological: Alert and Oriented x 3 Nutrition: Taking PO's - Nutrition: Malnutrition Diagnosis/Plan Malnutrition Assessment by Registered Dietitian: Malnutrition Assessment Clinical Characteristics Acute,Severe Malnutrition Assessment: inadequate oral intake: <or= 50% of EEE x > 5 Criteria days severe wt loss: 10.5% x 3 weeks to 22.7% x several months evidence of muscle/fat wasting: moderate-severe temporal and clavicle wasting Malnutrition Assessment: suggest liberalizing to REGULAR diet given Interventions severe wt loss, underwt status Ensure Enlive with meals per d/w pt: 350 kcals, 20 g pro per serving Malnutrition Assessment: Goals 1. Intake will improve to at least 50% of meals 2. Intake at meals + supplementation will be adequate to promote wt gain, preserve lean body mass 3. Cr will improve 4. Adequate glycemic control in setting of steroid tx Result Diagrams: 07/20/18 06:18 07/20/18 06:18 Additional Lab and Data: Laboratory Results - last 24 hr Microbiology and Other Data: . Assess/Plan/Problems-Billing Assessment: Mr. Sherman is an 88 yo male with a PMH for COPD, RCC, prostate cancer, who is admitted for COPD exacerbation requiring high amount of oxygen with hospitalization complicated by aspiration. - Patient Problems (1) COPD exacerbation Current Visit: No Status: Acute Code(s): J44.1 - CHRONIC OBSTRUCTIVE PULMONARY DISEASE W (ACUTE) EXACERBATION SNOMED Code(s): 578519743 Comment: - Emphysema noted on CTA with known COPD history - Likely being continually exacerbated by aspirations Completed 5 day course of azithromycin - Flutter valve - Continue Zosyn, prednisone, nebs - Will require home O2 if d/c to home - walking o2 saturations improving (2) Pneumonia Current Visit: Yes Status: Acute Code(s): J18.9 - PNEUMONIA, UNSPECIFIED ORGANISM SNOMED Code(s): 017091245 Comment: -Noted on CTA, likely aspiration -Afebrile with resolved leukocytosis -Continue IV zosyn (3) Respiratory failure Current Visit: Yes Status: Acute Code(s): J96.90 - RESPIRATORY FAILURE, UNSP , UNSP W HYPOXIA OR HYPERCAPNIA SNOMED Code(s): 564393616 Comment: -SOB with new oxygen requirements -Ambulation sat is 90% on 10L-yesterday- will repeat walking o2 sat daily -Continue O2; will need to be d/c on O2 - will need to decrease o2 requirments prior to discharge (4) JERO (acute kidney injury) Current Visit: No Status: Acute Code(s): N17.9 - ACUTE KIDNEY FAILURE, UNSPECIFIED SNOMED Code(s): 20978522 Comment: - Acute on CKD - likely pre-renal. - Improved (5) Lung nodules Current Visit: Yes Status: Acute Code(s): R91.8 - OTHER NONSPECIFIC ABNORMAL FINDING OF LUNG FIELD SNOMED Code(s): 832203527 Comment: - Enlarging left upper and new superior lingular spiculated nodules in lung - Oncology following - Possible malignancy; will need repeat CT in 3 months (6) DVT prophylaxis Current Visit: No Status: Acute Code(s): ASV7275 - SNOMED Code(s): 425688400 Comment: - Heparin SQ (7) DNR (do not resuscitate) Current Visit: Yes Status: Acute Status and Disposition: Inpatient. Discharge when stable and o2 requirement is less. discharge home with Hospice
[2018-07-21 22:10] LABS: Anti-Striated Muscle Antibody Negative titer (<1:120)
[2018-07-21] MEDS: Latanoprost 0.005%* 2.5 ml BTL BOTH EYES SCH (23:20)
[2018-07-22] MEDS: ZOSYN 3.375 GM Q8H per EXTENDED INFUSION IVPB SCH ×6 (04:08→21:10)
[2018-07-22] MEDS: CMCS: Saliva Substitute (NF) 1 SPRAY BTL MT SCH ×4 (04:09→21:12)
[2018-07-22] MEDS: Nicotine Patch Removal NOTE PATCH OFF SCH (10:07)
[2018-07-22] MEDS: Nicotine PATCH 21 MG/24 HR* PATCH TRANSDERM SCH (10:07)
[2018-07-22] MEDS: Multivitamins ADULT w/MIN LIQ* 15 ML UDC PO SCH (10:09)
[2018-07-22] MEDS: predniSONE TAB* 20 MG PO SCH (10:09)
[2018-07-22] MEDS: PILOCARPINE 5 MG PO SCH ×4 (10:10→21:14)
[2018-07-22] MEDS: Heparin VIAL(*) 5000 UNITS/ML VIAL (FIVE THOUSAND) SUBCUT SCH ×2 (10:11→21:11)
--- NOTE | 2018-07-22 11:32 | PN ---
Subjective Date of Service: 07/22/18 Interval History: Patient reports he feels "lousy" today because he was unable to sleep due to IV medications last night. Patient reports his breathing feels comfortable at rest and when sitting up to urinate. Denies chest pain, fever/chills. Nursing reports episode of nonbloody diarrhea this morning. Patient denies abd pain, nausea, vomiting. Patient was saturating well on 5L overnight and this morning, but sats fell to low 80s on 8L and nursing increased to 15L via oxymask. O2 sat then improved to >90%. Patient explains that he would want bipap while at this hospital, but no intubation. Family History: Unchanged from Admission Social History: Unchanged from Admission Past Medical History: Unchanged from Admission Objective Active Medications: Albuterol (Ventolin 2.5 Mg/3 Ml Neb.Meme*) 2.5 mg INH Q4H PRN PRN Reason: SOB/WHEEZING Heparin Sodium (Porcine) (Heparin Vial(*)) 5,000 units SUBCUT Q12HR [facility] Last Admin: 07/22/18 10:11 Dose: 5,000 units Piperacillin Sod/Tazobactam (Sod 3.375 gm/ Sodium Chloride) 100 mls @ 25 mls/ hr IVPB Q8H [facility] Last Admin: 07/22/18 04:08 Dose: 25 mls/hr Dextrose/Sodium Chloride (D5ns 0.9% 1000 Ml Bag*) 1,000 mls @ 75 mls/hr IV PER RATE [facility] Last Admin: 07/21/18 04:42 Dose: 75 mls/hr Latanoprost (Xalatan 0.005%*) 1 drop BOTH EYES DAILY@2300 [facility] Last Admin: 07/21/18 23:20 Dose: 1 drop Multivitamins (Theragran W/Minerals Liq*) 15 ml PO DAILY [facility] Last Admin: 07/22/18 10:09 Dose: 15 ml Nicotine (Nicotine Patch 21 Mg/24 Hr*) 1 patch TRANSDERM DAILY [facility] Last Admin: 07/22/18 10:07 Dose: 1 patch Pharmacy Consult (Zosyn Per Pharmacy*) 1 note FOLLOW UP .ZOSYN PER PHARMACY [facility] Pharmacy Profile Note (Nicotine Patch Removal Note*) 1 note PATCH OFF 0900 [facility] Last Admin: 07/22/18 10:07 Dose: 1 note Pilocarpine HCl (Salagen(Nf)) 5 mg PO TID [facility]; Protocol Last Admin: 07/22/18 10:10 Dose: Not Given Prednisone (Deltasone Tab*) 40 mg PO DAILY [facility] Last Admin: 07/22/18 10:09 Dose: 40 mg Saliva Substitute (Biotene Moisturizing Mouth (Nf)) 1 spray MT Q6H [facility]; Protocol Last Admin: 07/22/18 10:41 Dose: Not Given Vital Signs - 8 hr 07/22/18 07/22/18 07:00 08:00 Temperature 96.9 F Pulse Rate 82 Respiratory 15 18 Rate Blood Pressure 153/78 (mmHg) O2 Sat by Pulse 97 Oximetry Oxygen Devices in Use Now: Nasal Cannula Appearance: Cachectic appearing elderly white male, laying upright in bed, appearing comfortable and in NAD Eyes: No Scleral Icterus, PERRLA Neck: NL Appearance and Movements; NL JVP Respiratory: Symmetrical Chest Expansion and Respiratory Effort, Clear to Auscultation Cardiovascular: NL Sounds; No Murmurs; No JVD, RRR Abdominal: - - abdomen soft, nontender, nondistended Extremities: No Edema, No Clubbing, Cyanosis, - - Very thin extremities Skin: No Rash or Ulcers Neurological: Alert and Oriented x 3, NL Muscle Strength and Tone - Nutrition: Malnutrition Diagnosis/Plan Malnutrition Assessment by Registered Dietitian: Malnutrition Assessment Clinical Characteristics Acute,Severe Malnutrition Assessment: inadequate oral intake: <or= 50% of EEE x > 5 Criteria days severe wt loss: 10.5% x 3 weeks to 22.7% x several months evidence of muscle/fat wasting: moderate-severe temporal and clavicle wasting Malnutrition Assessment: suggest liberalizing to REGULAR diet given Interventions severe wt loss, underwt status Ensure Enlive with meals per d/w pt: 350 kcals, 20 g pro per serving Malnutrition Assessment: Goals 1. Intake will improve to at least 50% of meals 2. Intake at meals + supplementation will be adequate to promote wt gain, preserve lean body mass 3. Cr will improve 4. Adequate glycemic control in setting of steroid tx Result Diagrams: 07/20/18 06:18 07/20/18 06:18 Additional Lab and Data: Laboratory Results - last 24 hr Microbiology and Other Data: . Assess/Plan/Problems-Billing Assessment: Mr. Sherman is an 88 yo male with a PMH for COPD, RCC, prostate cancer, who is admitted for COPD exacerbation requiring high amount of oxygen with hospitalization complicated by aspiration. - Patient Problems (1) Acute respiratory failure with hypoxia Code(s): J96.01 - ACUTE RESPIRATORY FAILURE WITH HYPOXIA SNOMED Code(s): 90179236 Comment: -known PMHx of COPD - Likely exacerbated by recurrent aspirations; repeat CXR shows possible aspiration pneumonia - Continue prednisone - maintained O2 sat >90% at 5L overnight; required up to 15L after exertion, then later maintained O2 sat >90% at 5L after period of rest - patient understands that home hospice would likely not utilize bipap and explained that further respiratory failure is likely - patient has already been seen by Dr. Shelby with palliative medicine - awaiting hospice at home sign on (2) Pneumonia Code(s): J18.9 - PNEUMONIA, UNSPECIFIED ORGANISM SNOMED Code(s): 191574169 Comment: -Noted on CTA, likely aspiration -Afebrile with resolved leukocytosis -discontinuing zosyn as patient has received 7 days (3) Swallowing difficulty Code(s): R13.10 - DYSPHAGIA, UNSPECIFIED SNOMED Code(s): 65999684 Comment: - Nursing noted some swallowing difficulties; fluorscopic swallow study demonstrated stasis and aspiration to all consistencies - Would not be TPN candidate; GI indicates that he is not a candidate for a PEG as that will not prevent further aspiration - Appreciate Neurology consult; possibility of myasthenia gravis or Eaton Lambert; labs have been sent out and are pending at this point - Speech Therapy evaluated and recommended honey thick full liquid diet - Patient understands he will continue to aspirate and will likely continue to develop aspiration pneumonia - Continue IVF (4) Severe protein-calorie malnutrition Code(s): E43 - UNSPECIFIED SEVERE PROTEIN-CALORIE MALNUTRITION SNOMED Code(s) : 786541144 Comment: - Severely malnourished, likely due to dysphagia and advanced COPD - Severe muscle wasting - nutrition consult recommended ensure enlive with meals - it is possible that ensure is causing diarrhea, patient would like to not drink the ensure for lunch today and monitor for further diarrhea; ordered metamucil (5) Acute on chronic kidney failure Code(s): N17.9 - ACUTE KIDNEY FAILURE, UNSPECIFIED; N18.9 - CHRONIC KIDNEY DISEASE, UNSPECIFIED SNOMED Code(s): 641518338 Comment: - Creatinine at baseline on 07/20, have not been monitoring labs due to patient planning to go home on hospice (6) Lung nodules Code(s): R91.8 - OTHER NONSPECIFIC ABNORMAL FINDING OF LUNG FIELD SNOMED Code( s): 197016564 Comment: - Enlarging left upper and new superior lingular spiculated nodules in lung - Oncology following - Possible malignancy; repeat CT in 3 months is warranted (7) DVT prophylaxis Code(s): TJJ9310 - SNOMED Code(s): 497673246 Comment: - Heparin SQ (8) DNR (do not resuscitate) Status and Disposition: Inpatient. Discharge when stable and o2 requirement is less. discharge home with Hospice
[2018-07-22] MEDS ORDERED: D5NS 0.9% 1000 ML BAG* 1,000 ML IV SCH (11:35)
[2018-07-22] MEDS ORDERED: Psyllium PAK PO PRN (12:06)
[2018-07-22] MEDS: D5NS 0.9% 1000 ML BAG* 1,000 ML IV SCH (16:44)
[2018-07-23] MEDS: Latanoprost 0.005%* 2.5 ml BTL BOTH EYES SCH (00:15)
[2018-07-23] MEDS: ZOSYN 3.375 GM Q8H per EXTENDED INFUSION IVPB SCH ×6 (04:44→21:05)
[2018-07-23] MEDS: CMCS: Saliva Substitute (NF) 1 SPRAY BTL MT SCH ×4 (04:45→21:06)
[2018-07-23] MEDS: D5NS 0.9% 1000 ML BAG* 1,000 ML IV SCH (09:25)
[2018-07-23] MEDS: predniSONE TAB* 20 MG PO SCH (10:06)
[2018-07-23] MEDS: Multivitamins ADULT w/MIN LIQ* 15 ML UDC PO SCH (10:06)
[2018-07-23] MEDS: PILOCARPINE 5 MG PO SCH ×4 (10:07→21:06)
[2018-07-23] MEDS: Heparin VIAL(*) 5000 UNITS/ML VIAL (FIVE THOUSAND) SUBCUT SCH ×2 (10:07→21:05)
[2018-07-23] MEDS: Nicotine PATCH 21 MG/24 HR* PATCH TRANSDERM SCH (10:11)
[2018-07-23] MEDS: Nicotine Patch Removal NOTE PATCH OFF SCH (10:29)
--- NOTE | 2018-07-23 17:34 | PN ---
Subjective Date of Service: 07/23/18 Interval History: Patient feeling well at time of evaluation. He has no complaints. He did experience another episode of diarrhea today. He denies abd pain, nausea, chest pain, difficulty breathing, fever/chills. Family History: Unchanged from Admission Social History: Unchanged from Admission Past Medical History: Unchanged from Admission Objective Active Medications: Albuterol (Ventolin 2.5 Mg/3 Ml Neb.Meme*) 2.5 mg INH Q4H PRN PRN Reason: SOB/WHEEZING Heparin Sodium (Porcine) (Heparin Vial(*)) 5,000 units SUBCUT Q12HR [facility] Last Admin: 07/23/18 10:07 Dose: 5,000 units Piperacillin Sod/Tazobactam (Sod 3.375 gm/ Sodium Chloride) 100 mls @ 25 mls/ hr IVPB Q8H [facility] Last Admin: 07/23/18 12:57 Dose: 25 mls/hr Dextrose/Sodium Chloride (D5ns 0.9% 1000 Ml Bag*) 1,000 mls @ 75 mls/hr IV PER RATE [facility] Last Admin: 07/23/18 09:25 Dose: 75 mls/hr Latanoprost (Xalatan 0.005%*) 1 drop BOTH EYES DAILY@2300 [facility] Last Admin: 07/23/18 00:15 Dose: 1 drop Multivitamins (Theragran W/Minerals Liq*) 15 ml PO DAILY [facility] Last Admin: 07/23/18 10:06 Dose: 15 ml Nicotine (Nicotine Patch 21 Mg/24 Hr*) 1 patch TRANSDERM DAILY [facility] Last Admin: 07/23/18 10:11 Dose: 1 patch Pharmacy Profile Note (Nicotine Patch Removal Note*) 1 note PATCH OFF 0900 [facility] Last Admin: 07/23/18 10:29 Dose: 1 note Pilocarpine HCl (Salagen(Nf)) 5 mg PO TID [facility]; Protocol Last Admin: 07/23/18 12:51 Dose: Not Given Prednisone (Deltasone Tab*) 40 mg PO DAILY [facility] Last Admin: 07/23/18 10:06 Dose: 40 mg Psyllium Hydrophilic Mucilloid (Metamucil Morro*) 1 pkt PO DAILY PRN PRN Reason: DIARRHEA Saliva Substitute (Biotene Moisturizing Mouth (Nf)) 1 spray MT Q6H [facility]; Protocol Last Admin: 07/23/18 10:15 Dose: 1 spray Vital Signs - 8 hr 07/23/18 07/23/18 07/23/18 11:14 12:23 15:10 Temperature 96.9 F 96.8 F Pulse Rate 81 88 Respiratory 18 18 32 Rate Blood Pressure 143/56 151/76 (mmHg) O2 Sat by Pulse 95 97 Oximetry Oxygen Devices in Use Now: Nasal Cannula Appearance: Cachectic, white, male laying upright in hospital bed, appearing in NAD Eyes: No Scleral Icterus, PERRLA Ears/Nose/Mouth/Throat: Mucous Membranes Moist Neck: NL Appearance and Movements; NL JVP Respiratory: Symmetrical Chest Expansion and Respiratory Effort, - - lung sounds diminished at bases but otherwise clear Cardiovascular: NL Sounds; No Murmurs; No JVD, RRR Abdominal: - - abd soft, nontender, nondistended Extremities: No Edema, No Clubbing, Cyanosis Skin: No Rash or Ulcers Neurological: Alert and Oriented x 3, NL Muscle Strength and Tone Result Diagrams: 07/20/18 06:18 07/20/18 06:18 Additional Lab and Data: Laboratory Results - last 24 hr Microbiology and Other Data: . Assess/Plan/Problems-Billing Assessment: Mr. Sherman is an 88 yo male with a PMH for COPD, RCC, prostate cancer, who is admitted for COPD exacerbation requiring high amount of oxygen with hospitalization complicated by aspiration. - Patient Problems (1) Acute respiratory failure with hypoxia Code(s): J96.01 - ACUTE RESPIRATORY FAILURE WITH HYPOXIA SNOMED Code(s): 08999394 Comment: -known PMHx of COPD, no previous oxygen requirement - Likely exacerbated by recurrent aspirations; repeat CXR shows possible aspiration pneumonia - Continue prednisone - maintained O2 sat >90% at 5L overnight again, then later required 10L after moment of exertion which appears to be the pattern; nursing will assess O2 sat at various oxygen flow rates - patient has already been seen by Dr. Shelby with palliative medicine - home hospice sign on will occur Saturday (07/25/18), plans for his friend Maxim to assist in care (2) Pneumonia Code(s): J18.9 - PNEUMONIA, UNSPECIFIED ORGANISM SNOMED Code(s): 461186289 Comment: -Noted on CTA, likely aspiration given dysphagia -patient received 7 days zosyn; leukocytosis previously resolved but not routinely checking CBCs for comfort -patient remains afebrile without changes in lung exam (3) Swallowing difficulty Code(s): R13.10 - DYSPHAGIA, UNSPECIFIED SNOMED Code(s): 43592226 Comment: - Nursing noted some swallowing difficulties; fluorscopic swallow study demonstrated stasis and aspiration to all consistencies - Would not be TPN candidate; GI indicates that he is not a candidate for a PEG as that will not prevent further aspiration - Appreciate Neurology consult; possibility of myasthenia gravis or Eaton Lambert; labs have been sent out and are pending at this point - Speech Therapy evaluated and recommended honey thick full liquid diet - Patient understands he will continue to aspirate and will likely continue to develop aspiration pneumonia - Continue IVF (4) Severe protein-calorie malnutrition Code(s): E43 - UNSPECIFIED SEVERE PROTEIN-CALORIE MALNUTRITION SNOMED Code(s) : 321502250 Comment: - Severely malnourished, likely due to dysphagia and advanced COPD - Severe muscle wasting - nutrition consult recommended ensure enlive with meals - continue ordered metamucil for diarrhea which may be related to ensure (5) Acute on chronic kidney failure Code(s): N17.9 - ACUTE KIDNEY FAILURE, UNSPECIFIED; N18.9 - CHRONIC KIDNEY DISEASE, UNSPECIFIED SNOMED Code(s): 860775878 Comment: - Creatinine at baseline on 07/20, have not been monitoring labs due to patient planning to go home on hospice (6) Lung nodules Code(s): R91.8 - OTHER NONSPECIFIC ABNORMAL FINDING OF LUNG FIELD SNOMED Code( s): 783381704 Comment: - Enlarging left upper and new superior lingular spiculated nodules in lung - Oncology following - Possible malignancy; repeat CT in 3 months is warranted (7) DVT prophylaxis Code(s): [id number] - SNOMED Code(s): 599700525 Comment: - Heparin SQ (8) DNR (do not resuscitate) Status and Disposition: will discharge home with hospice on 07/25/18 with hospice sign-on same day, patient otherwise unsafe to return home prior to this time
[2018-07-23 22:23] LABS: Anti-Glial/Neuronal Nuc Ab-1 A Negative titer (<1:240); Anti-Neuronal Nuclear Ab Type1 Negative titer (<1:240); Anti-Neuronal Nuclear Ab Type2 Negative titer (<1:240); Anti-Neuronal Nuclear Ab Type3 Negative titer (<1:240); Anti-Striated Muscle Antibody Negative titer (<1:120); CRMP-5 IgG Antibody Negative titer (<1:240); Purkinje Cell Cytoplasm Typ Tr Negative titer (<1:240); Purkinje Cell Cytoplasm Type 1 Negative titer (<1:240); Purkinje Cell Cytoplasm Type 2 Negative titer (<1:240)
[2018-07-24] MEDS: Latanoprost 0.005%* 2.5 ml BTL BOTH EYES SCH (00:09)
[2018-07-24] MEDS: ZOSYN 3.375 GM Q8H per EXTENDED INFUSION IVPB SCH ×2 (04:37)
[2018-07-24] MEDS: CMCS: Saliva Substitute (NF) 1 SPRAY BTL MT SCH ×4 (04:38→21:46)
[2018-07-24] MEDS: PILOCARPINE 5 MG PO SCH ×3 (08:13→21:42)
[2018-07-24] MEDS: predniSONE TAB* 20 MG PO SCH (09:34)
[2018-07-24] MEDS: Multivitamins ADULT w/MIN LIQ* 15 ML UDC PO SCH (09:34)
[2018-07-24] MEDS: Heparin VIAL(*) 5000 UNITS/ML VIAL (FIVE THOUSAND) SUBCUT SCH ×2 (09:35→21:45)
[2018-07-24] MEDS: Nicotine PATCH 21 MG/24 HR* PATCH TRANSDERM SCH (09:36)
[2018-07-24] MEDS: Nicotine Patch Removal NOTE PATCH OFF SCH (09:36)
--- NOTE | 2018-07-24 10:21 | PN ---
Subjective Date of Service: 07/24/18 Interval History: Patient feels his breathing is improved today. He reports loose stool. He denies abd pain, n/v, chest pain, respiratory difficulty. Family History: Unchanged from Admission Social History: Unchanged from Admission Past Medical History: Unchanged from Admission Objective Active Medications: Albuterol (Ventolin 2.5 Mg/3 Ml Neb.Meme*) 2.5 mg INH Q4H PRN PRN Reason: SOB/WHEEZING Heparin Sodium (Porcine) (Heparin Vial(*)) 5,000 units SUBCUT Q12HR [facility] Last Admin: 07/24/18 09:35 Dose: 5,000 units Dextrose/Sodium Chloride (D5ns 0.9% 1000 Ml Bag*) 1,000 mls @ 75 mls/hr IV PER RATE [facility] Last Admin: 07/23/18 09:25 Dose: 75 mls/hr Latanoprost (Xalatan 0.005%*) 1 drop BOTH EYES DAILY@2300 [facility] Last Admin: 07/24/18 00:09 Dose: 1 drop Multivitamins (Theragran W/Minerals Liq*) 15 ml PO DAILY [facility] Last Admin: 07/24/18 09:34 Dose: 15 ml Nicotine (Nicotine Patch 21 Mg/24 Hr*) 1 patch TRANSDERM DAILY [facility] Last Admin: 07/24/18 09:36 Dose: 1 patch Pharmacy Profile Note (Nicotine Patch Removal Note*) 1 note PATCH OFF 0900 [facility] Last Admin: 07/24/18 09:36 Dose: 1 note Pilocarpine HCl (Salagen(Nf)) 5 mg PO TID [facility]; Protocol Last Admin: 07/24/18 08:13 Dose: Not Given Prednisone (Deltasone Tab*) 40 mg PO DAILY [facility] Last Admin: 07/24/18 09:34 Dose: 40 mg Psyllium Hydrophilic Mucilloid (Metamucil Morro*) 1 pkt PO DAILY PRN PRN Reason: DIARRHEA Saliva Substitute (Biotene Moisturizing Mouth (Nf)) 1 spray MT Q6H [facility]; Protocol Last Admin: 07/24/18 09:37 Dose: 1 spray Vital Signs - 8 hr 07/24/18 07/24/18 07/24/18 03:00 07:00 09:47 Temperature 97.3 F 97.1 F Pulse Rate 84 84 Respiratory 20 17 18 Rate Blood Pressure 157/88 144/72 (mmHg) O2 Sat by Pulse 95 92 Oximetry Oxygen Devices in Use Now: Nasal Cannula Appearance: Cachectic elderly male, laying upright in hospital bed, appearing in NAD Eyes: No Scleral Icterus, PERRLA Ears/Nose/Mouth/Throat: Mucous Membranes Moist Neck: NL Appearance and Movements; NL JVP Respiratory: Symmetrical Chest Expansion and Respiratory Effort, Clear to Auscultation Cardiovascular: NL Sounds; No Murmurs; No JVD, RRR Abdominal: NL Sounds; No Tenderness; No Distention Extremities: No Edema, No Clubbing, Cyanosis Skin: No Rash or Ulcers Neurological: Alert and Oriented x 3, NL Muscle Strength and Tone - Nutrition: Malnutrition Diagnosis/Plan Malnutrition Assessment by Registered Dietitian: Malnutrition Assessment Clinical Characteristics Acute,Severe Malnutrition Assessment: inadequate oral intake: <or= 50% of EEE x > 5 Criteria days severe wt loss: 10.5% x 3 weeks to 22.7% x several months evidence of muscle/fat wasting: moderate-severe temporal and clavicle wasting Malnutrition Assessment: suggest liberalizing to REGULAR diet given Interventions severe wt loss, underwt status Ensure Enlive with meals per d/w pt: 350 kcals, 20 g pro per serving Malnutrition Assessment: Goals 1. Intake will improve to at least 50% of meals 2. Intake at meals + supplementation will be adequate to promote wt gain, preserve lean body mass 3. Cr will improve 4. Adequate glycemic control in setting of steroid tx Result Diagrams: 07/20/18 06:18 07/24/18 12:23 Additional Lab and Data: Laboratory Results - last 24 hr Microbiology and Other Data: . Assess/Plan/Problems-Billing Assessment: Mr. Sherman is an 88 yo male with a PMH for COPD, RCC, prostate cancer, who is admitted for COPD exacerbation requiring high amount of oxygen with hospitalization complicated by aspiration. - Patient Problems (1) Acute respiratory failure with hypoxia Code(s): J96.01 - ACUTE RESPIRATORY FAILURE WITH HYPOXIA SNOMED Code(s): 92863910 Comment: -known PMHx of COPD, no previous oxygen requirement - Likely exacerbated by recurrent aspirations; repeat CXR shows possible aspiration pneumonia - maintained O2 sat >90% at 2L overnight, assessing oxygen requirement with exertion today for oxygen at home - patient has already been seen by Dr. Shelby with palliative medicine - home hospice sign on will occur Saturday (07/25/18), plans for his friend Maxim to assist in care -will start tapering prednisone tomorrow, from 40 mg to 30mg (2) Pneumonia Code(s): J18.9 - PNEUMONIA, UNSPECIFIED ORGANISM SNOMED Code(s): 957129376 Comment: -Noted on CTA, likely aspiration given dysphagia -patient received 7 days zosyn; leukocytosis previously resolved but not routinely checking CBCs for comfort -patient remains afebrile without changes in lung exam (3) Swallowing difficulty Code(s): R13.10 - DYSPHAGIA, UNSPECIFIED SNOMED Code(s): 68056688 Comment: - Nursing noted some swallowing difficulties; fluorscopic swallow study demonstrated stasis and aspiration to all consistencies - Would not be TPN candidate; GI indicates that he is not a candidate for a PEG as that will not prevent further aspiration - Appreciate Neurology consult; possibility of myasthenia gravis or Eaton Lambert; labs have been sent out and are pending at this point - Speech Therapy evaluated and recommended honey thick full liquid diet - Patient understands he will continue to aspirate and will likely continue to develop aspiration pneumonia - Continue IVF (4) Severe protein-calorie malnutrition Code(s): E43 - UNSPECIFIED SEVERE PROTEIN-CALORIE MALNUTRITION SNOMED Code(s) : 621377235 Comment: - Severely malnourished, likely due to dysphagia and advanced COPD - Severe muscle wasting - nutrition consult recommended ensure enlive with meals - continue ordered metamucil for previous diarrhea which may have been related to ensure (5) Acute on chronic kidney failure Code(s): N17.9 - ACUTE KIDNEY FAILURE, UNSPECIFIED; N18.9 - CHRONIC KIDNEY DISEASE, UNSPECIFIED SNOMED Code(s): 421570049 Comment: - Creatinine at baseline on 07/20, have not been monitoring labs due to patient planning to go home on hospice (6) Lung nodules Code(s): R91.8 - OTHER NONSPECIFIC ABNORMAL FINDING OF LUNG FIELD SNOMED Code( s): 969482737 Comment: - Enlarging left upper and new superior lingular spiculated nodules in lung - Oncology following - Possible malignancy; repeat CT in 3 months is warranted (7) DVT prophylaxis Code(s): [id number] - SNOMED Code(s): 893349223 Comment: - Heparin SQ (8) DNR (do not resuscitate) Status and Disposition: will discharge home with hospice on 07/25/18 with hospice sign-on same day, patient otherwise unsafe to return home prior to this time
[2018-07-24 12:48] LABS: EGFR African American 71.2 (>60); EGFR Non-African American 58.8 (>60)
[2018-07-24] MEDS: D5NS 0.9% 1000 ML BAG* 1,000 ML IV SCH (13:52)
--- NOTE | 2018-07-24 22:43 | DS ---
CC: Dr. Priest; Dr. Huizar; Dr. Cortez * DISCHARGE SUMMARY: DATE OF ADMISSION: 07/09/18 DATE OF DISCHARGE: 07/25/18 ATTENDING PHYSICIAN: Dr. Gualberto Stafford * (dictated by KAYLA Andersen). PRIMARY CARE PROVIDER: Dr. Priest. CONSULTING NEUROLOGIST: Dr. Huizar. CONSULTING CORK INSULATOR: Dr. Cortez. PRIMARY DIAGNOSES: 1. Dysphagia, unclear etiology. 2. Aspiration pneumonia. 3. Lung nodule. 4. Severe protein-calorie malnutrition. 5. Acute respiratory failure with hypoxia. SECONDARY DIAGNOSES: 1. Chronic obstructive pulmonary disease. 2. Chronic kidney disease, stage 3. 3. History of renal cell carcinoma, status post nephrectomy, splenectomy, left 11th rib removal. 4. History of prostate cancer, status post prostatectomy. 5. Glaucoma. STUDIES WHILE IN THE HOSPITAL: Chest/thorax CTA, 07/09/18, no pulmonary emboli , bilateral lower lobe aspiration and associated right lower lobe volume loss, mild to moderate emphysema with enlarging left upper and new superior lingular spiculated nodules, highly concerning for developing neoplasm, biopsy versus PET /CT recommended for followup. 07/14/18, swallow study, impression; stasis and aspiration. Chest x-ray on 07/14/18, left upper lobe nodular density correlating with previously noted spiculation lesion concerning for primary lung carcinoma, small left lower lobe infiltrate and pleural effusion, most consistent with pneumonia, COPD. Chest x-ray on 07/16/18, small bibasilar infiltrates and bilateral pleural effusions. Left upper lobe spiculated lesion. COPD. Brain MRI on 07/15/18, no acute intracranial abnormality. Moderate chronic microvascular ischemic changes. Pertinent lab data: Paraneoplastic antibodies negative. Neuronal nuclear antibodies, type 1 to type 3 negative. AGNA-1 negative. AChR antibody negative. Purkinje cell negative. CRMP-5-IgG antibodies negative. Amphiphysin antibody negative. Calcium-channel binding antibody negative. Voltage-gated potassium channel antibody negative. Anti-MuSK antibody negative. Striated muscle antibody negative. Acetylcholine receptor antibodies negative. DISCHARGE MEDICATIONS: 1. Prednisone 30 mg x3 days, 20 mg x3 days, 10 mg x3 days. 2. Saliva substitute 1 spray q.6 hours. 3. Metamucil 1 pack p.o. daily. p.r.n. diarrhea. 4. Pilocarpine 5 mg p.o. t.i.d. scheduled. 5. Nicotine patch 24 mg for 24 hours daily. 6. Multivitamin 50 mg p.o. daily. 7. Latanoprost 1 drop both eyes. 8. Albuterol inhaler p.r.n. HISTORY OF PRESENT ILLNESS/HOSPITAL COURSE: Reagan Sherman is an 88-year-old white male with past medical history significant for history of renal cell carcinoma, prostate cancer, CKD, and COPD, who presented to emergency department on 07/09/18 due to shortness of breath. Please see admitting history and physical note from Nicki Rodrigues for further details. During his hospital stay, he was found to have aspiration pneumonia and was treated with full course of Zosyn. Later, the cause of his aspiration was found to be dysphagia of unknown etiology. Neurology and Gastroenterology were consulted and various lab testing was found to be negative. He was found to not be a candidate for TPN and also not a candidate for PEG. He was determined by Speech Therapy to require a honey-thickened liquids for diet with the understanding that aspiration is still expected. Additionally during his hospital stay, new lung nodule was found. Dr. Gamble was consulted and felt that there was no need for biopsy at this time. He does recommend it will be reasonable to have a repeat CT in 3 months to determine rate of growth. This is suspected to be malignant given the patient's cachexia and history of cancer. On the day of discharge, the patient is feeling well. He feels that his breathing is comfortable with oxygen. He has no chest pain, abdominal pain, nausea, or vomiting. No fevers or chills. REVIEW OF SYSTEMS: An 11-point review of systems was completed and all pertinent positives and negatives are above in the HPI. All other systems are negative. PHYSICAL EXAMINATION: General: Cachectic elderly male, lying upright in hospital bed, appearing in no acute distress. Head: Normocephalic, atraumatic. Eyes: PERRL. Sclerae anicteric. ENT: Mucous membranes moist. Neck: Supple without JVD. Cardio: Regular rate and rhythm without murmurs, rubs, or gallops. Lungs: Clear to auscultation throughout. Abdomen: Soft, nontender, nondistended. Extremities: Thin. No clubbing, cyanosis, or edema. Neuro: The patient is alert and oriented x3. No focal deficits. Able to move all extremities. DISCHARGE PLAN: Diet: Honey-thick liquid diet, otherwise regular diet. Activity: As tolerated. The patient is going home with hospice care with sign on same day with his friend present who has agreed to assist with home care. He has been provided with oxygen equipment. At the time of hospice sign on, his medications can be adjusted as needed. The patient understands the likelihood of future aspiration pneumonia given his dysphagia. The patient was advised to follow up with the primary care provider within 1 to 2 weeks regarding this hospitalization. It is reasonable to consider follow-up CT of the chest regarding the lung nodule; however, given the patient's prognosis in his current standing, it may not be feasible, but is up to his primary care provider to determine. CONDITION ON DISCHARGE: Fair. DISPOSITION: Home. TIME SPENT: Approximately 45 minutes was spent on this discharge. KAYLA ANDERSEN [id number]/[facility] #: [id number] MTDHeather
[2018-07-25] MEDS: Latanoprost 0.005%* 2.5 ml BTL BOTH EYES SCH (00:40)
[2018-07-25] MEDS: CMCS: Saliva Substitute (NF) 1 SPRAY BTL MT SCH (06:24)
[2018-07-25] MEDS: Nicotine Patch Removal NOTE PATCH OFF SCH (08:17)
[2018-07-25] MEDS: Nicotine PATCH 21 MG/24 HR* PATCH TRANSDERM SCH (08:19)
[2018-07-25] MEDS: PILOCARPINE 5 MG PO SCH (08:20)
[2018-07-25] MEDS: Multivitamins ADULT w/MIN LIQ* 15 ML UDC PO SCH (08:20)
[2018-07-25] MEDS: Heparin VIAL(*) 5000 UNITS/ML VIAL (FIVE THOUSAND) SUBCUT SCH (08:20)
[2018-07-25 08:22] VITALS: BP 109/63
[2018-07-25] MEDS ORDERED: predniSONE TAB* 10 MG PO SCH (09:00)
== END 2018-07-25 09:20 | disposition hospice, home (50) | DRG 177 ==
LOC: ED 15:51 → MED 17:54 → OBSVTOIN 07-10 14:00 → ICU 07-16 12:41 → MED 07-17 15:47
PROVIDERS: ADMIT Internal Medicine; ATTEND Internal Medicine
DX: J69.0 Pneumonitis due to inhalation of food and vomit (principal); J96.01 Acute respiratory failure with hypoxia; E43 Unspecified severe protein-calorie malnutrition; Z68.1 Body mass index [BMI] 19.9 or less, adult; N17.9 Acute kidney failure, unspecified; J90 Pleural effusion, not elsewhere classified; J43.9 Emphysema, unspecified; H40.9 Unspecified glaucoma; R62.7 Adult failure to thrive; R91.8 Other nonspecific abnormal finding of lung field; R13.10 Dysphagia, unspecified; N18.3 Chronic kidney disease, stage 3 (moderate); Z66 Do not resuscitate; E87.5 Hyperkalemia; Z90.79 Acquired absence of other genital organ(s); Z90.5 Acquired absence of kidney; Z87.891 Personal history of nicotine dependence; Z85.46 Personal history of malignant neoplasm of prostate; Z85.528 Personal history of other malignant neoplasm of kidney; Z90.89 Acquired absence of other organs; Z90.81 Acquired absence of spleen; Z85.828 Personal history of other malignant neoplasm of skin; Z85.72 Personal history of non-Hodgkin lymphomas
CPT/HCPCS: 36415; 36600; 70553; 71045; 71046; 71275; 74230; 80048; 80053; 82085; 82550; 82565; 82803; 83519; 83520; 83605; 83735; 83874; 84100; 84520; 85025; 86255; 86256; 87641; 94640; 99284; A9270-GY; A9579; G8978-GP-CJ; G8978-GP-CK; G8979-GP-CH; G8979-GP-CI; G8996-GN-CJ; G8997-GN-CJ; G8998-GN-CJ; J0456; J1644; J2543; J2920; J3475; J7512; Q9967

== ENCOUNTER 2018-07-25 18:10 | Inpatient (IN) | payer MEDICARE, OTHER ==
--- NOTE | 2018-07-25 18:31 | ED ---
Respiratory - HPI Summary HPI Summary: Pt is an 88 y/o M presenting to the ED brought in by EMS for shortness of breath initially onset a couple of weeks ago. He states he was in the hospital and was doing better so they discharged him, but he worsened in the last week or so. He denies cough, fever, abd pain, or chest pain. The pt's food specialist stated that he needed placement as he does not have 24hr care. He was found by his neighbor in extremis, who then called 911. - History of Current Complaint Chief Complaint: EDRespiratoryDistress Stated Complaint: "RESPIRATORY DISTRESS PER EMS" Time Seen by Provider: 07/25/18 18:23 Hx Obtained From: Patient Onset/Duration: Gradual Onset, Lasting Weeks, Still Present Timing: Constant Initial Severity: Moderate Current Severity: None Pain Intensity: 0 Character: Dyspnea at Rest Sputum Amount: None Aggravating Factor(s): Nothing Alleviating Factor(s): Nothing Associated Signs and Symptoms: SOB - Allergy/Home Medications Allergies/Adverse Reactions: Allergies Allergy/AdvReac Type Severity Reaction Status Date / Time No Known Allergies Allergy Verified 07/25/18 18:18 PMH/Surg Hx/FS Hx/Imm Hx Previously Healthy: Yes Endocrine/Hematology History: Denies: Hx Diabetes, Hx Thyroid Disease Cardiovascular History: Denies: Hx Congestive Heart Failure, Hx Hypertension, Hx Pacemaker/ICD Respiratory History: Reports: Hx Chronic Obstructive Pulmonary Disease (COPD) - He has smoked about 60 years up to 1ppd., Other Respiratory Problems/Disorders - BRONCHITIS Denies: Hx Asthma GI History: Denies: Hx Ulcer History: Reports: Hx Renal Disease, Other Problems/Disorders - prostatectomy Denies: Hx Dialysis Musculoskeletal History: Reports: Other Musculoskeletal History - BROKE BACK 50 YEARS AGO Sensory History: Reports: Hx Contacts or Glasses, Hx Glaucoma - ON MEDS Denies: Hx Hearing Aid Opthamlomology History: Reports: Hx Contacts or Glasses, Hx Glaucoma - ON MEDS Neurological History: Denies: Hx Dementia, Hx Migraine, Hx Seizures, Hx Transient Ischemic Attacks (TIA) Psychiatric History: Denies: Hx Anxiety, Hx Depression, Hx Panic Disorder, Hx Schizophrenia, Hx Bipolar Disorder - Cancer History Cancer Type, Location and Year: prostate. neck area - removed - Surgical History Surgery Procedure, Year, and Place: LEFT NEPHRECTOMY, , [facility]. CYST FROM NECK, 2005, [facility]. BOWEL OBSTRUCTION, [facility]. appendectomy. hernia repair. cataracts. tonsils and adnoids Hx Anesthesia Reactions: No Infectious Disease History: Unable to Obtain/Confirm Infectious Disease History: Denies: Hx Hepatitis, Hx Human Immunodeficiency Virus (HIV), Traveled Outside the [place] in Last 30 Days - Family History Known Family History: Negative: Cardiac Disease - Social History Alcohol Use: Rare Hx Substance Use: No Substance Use Type: Reports: None Hx Tobacco Use: Yes Smoking Status (MU): Former Smoker Type: Cigarettes Amount Used/How Often: 1/2 ppd. Have You Smoked in the Last Year: Yes Review of Systems Negative: Fever Negative: Chest Pain Positive: Shortness Of Breath. Negative: Cough Negative: Abdominal Pain All Other Systems Reviewed And Are Negative: Yes Physical Exam - Summary Physical Exam Summary: Appearance: Cachectic elderly man sitting on stretcher in moderate distress with labored breathing Skin: Warm, dry, no obvious rash Eyes: sclera anicteric, no conjunctival pallor ENT: mucous membranes moist, pharynx appears normal Neck: Supple, nontender Respiratory: Clear to auscultation, no signs of respiratory distress Cardiovascular: Normal S1, S2. No murmurs. Normal distal pulses in tibial and radial bilaterally. Abdomen: Soft, nontender, normal active bowel sounds present Musculoskeletal: Normal, Strength/ROM Intact Neurological: A&Ox3, awake and alert, mentation is normal, speech is fluent and appropriate Psychiatric: affect is normal, does not appear anxious or depressed Triage Information Reviewed: Yes Vital Signs On Initial Exam: Initial Vitals Temp Pulse Resp BP Pulse Ox 97.3 F 113 24 128/76 90 07/25/18 18:13 07/25/18 18:13 07/25/18 18:13 07/25/18 18:13 07/25/18 18:13 Vital Signs Reviewed: Yes Diagnostics - Vital Signs Vital Signs Temp Pulse Resp BP Pulse Ox 07/25/18 18:13 97.3 F 113 24 128/76 90 - Laboratory Result Diagrams: 07/25/18 19:07 07/25/18 19:07 Lab Statement: Any lab studies that have been ordered have been reviewed, and results considered in the medical decision making process. - Radiology CXR Radiology Interpretation Completed By: ED Physician Summary of Radiographic Findings: New opacities in both lower lung escobar, pending official radiology report. Disposition - Course Course Of Treatment: Pt is an 88 y/o M presenting to the ED brought in by EMS for shortness of breath initially onset a few weeks ago. He states he was in the hospital and was doing better so they discharged him, but he worsened quite abruptly soon after being discharged. During his hospitalization, he was felt to have suffered from aspiration pneumonia, and was also found to have a spiculated lesion in the left upper lobe consistent with primary lung cancer. Further workup of this tumor was deferred given the patient's age and general very high level of debility. He was discharged home to hospice care. He denies cough, fever, abd pain, or chest pain. I spoke with Gualberto Stafford about the pt's condition who will be accepting the pt to [facility]. The pt's dx will be hypoxic respiratory failure. Pt's CXR shows new opacities in both lower lung escobar. The pt will be signed out to Dr. Valdivia pending further workup. - Diagnoses Provider Diagnoses: Acute and chronic respiratory failure with hypoxia Discharge - Sign-Out/Discharge Documenting (check all that apply): Sign-Out Patient Signing out patient TO: Florina Valdivia - Discharge Plan Condition: Stable Disposition: ADMITTED TO [facility] - Billing Disposition and Condition Condition: STABLE Disposition: Admitted to [facility] - Attestation Statements Document Initiated by Hugh: Yes Documenting Scribe: Lupe Dukes Provider For Whom Hugh is Documenting (Include Credential): Samule Valverde MD. Scribe Attestation: Lupe Jurado, willemed for Samuel Valverde MD. on 07/26/18 at 1021. Scribe Documentation Reviewed: Yes Provider Attestation: The documentation as recorded by the scribe, Lupe Dukes accurately reflects the service I personally performed and the decisions made by me, Samuel Valverde MD. Status of Scribe Document: Viewed Consult Consult: [id number] - I spoke with Gualberto Stafford about the pt's present condition who will be accepting him to [facility].
[2018-07-25] MEDS ORDERED: Albuterol 0.5% CONC NEB.SOL* 5 MG/ML 20 ml BOT INH ONE (18:36)
[2018-07-25 19:15] LABS: Hematocrit 39 % (42-52); Hemoglobin 12.9 g/dL (14.0-18.0); Mean Corpuscular HGB Conc 33 g/dL (31-36); Mean Corpuscular Hemoglobin 31 pg (27-31); Mean Corpuscular Volume 93 fL (80-94); Mean Platelet Volume 8.6 fL (7.4-10.4); Platelet Count 238 10^3/uL (150-450); Red Blood Count 4.22 10^6 /uL (4.18-5.48); Red Cell Distribution Width 14 % (10-15); White Blood Count 21.4 10^3/uL (3.5-10.8)
[2018-07-25 19:40] LABS: Troponin I 0.04 ng/mL (<0.04)
[2018-07-25 19:42] LABS: ALT 22 U/L (7-52); AST 24 U/L (13-39); Albumin 2.8 g/dL (3.2-5.2); Alkaline Phosphatase 72 U/L (34-104); BUN/Creatinine Ratio 25.9 (8-20); Blood Urea Nitrogen 30 mg/dL (6-24); CO2 Carbon Dioxide 30 mmol/L (22-32); Chloride 107 mmol/L (101-111); EGFR African American 71.9 (>60); EGFR Non-African American 59.4 (>60); Globulin 2.7 g/dL (2-4); Glucose 69 mg/dL (70-100); Potassium 3.4 mmol/L (3.5-5.0); Total Protein 5.5 g/dL (6.4-8.9)
[2018-07-25 19:43] LABS: Anion Gap 9 mmol/L (2-11); Sodium 146 mmol/L (135-145)
[2018-07-25 19:51] LABS: ABS Basophils 0.1 10^3/ul (0-0.2); ABS Eosinophils 0.1 10^3/ul (0-0.6); ABS Lymphocytes 0.2 10^3/ul (1.0-4.8); ABS Monocytes 0.6 10^3/ul (0-0.8); ABS Neutrophils 20.3 10^3/ul (1.5-7.7); Eosinophil % 0.7 %; Lymphocyte % 1.1 %
[2018-07-25] MEDS ORDERED: Acetaminophen TAB* 325 MG PO PRN (20:03)
[2018-07-25] MEDS ORDERED: Ondansetron INJ* 2 MG/ML VIAL IV PRN (20:03)
[2018-07-25] MEDS ORDERED: Albuterol/Ipratropium NEB.SOL* Albuterol 2.5 MG/Ipratropium 0.5 MG 3 ML INH PRN (20:03)
[2018-07-25] MEDS ORDERED: Lorazepam PYXIS KEY PRN (20:09)
--- NOTE | 2018-07-25 20:40 | ED ---
Progress - Progress Note Progress Note: Receiving sign-out from Dr. Valverde pending admission. The patient was accepted for admission prior to sign-out. Patient was stable from receiving sign out to being admitted. Course/Dx - Course Course Of Treatment: Receiving sign-out from Dr. Valverde pending admission. The patient was accepted for admission prior to sign-out. Patient was stable from receiving sign out to being admitted. - Diagnoses Provider Diagnoses: Acute and chronic respiratory failure with hypoxia Discharge - Sign-Out/Discharge Documenting (check all that apply): Patient Departure - Admission, Receiving Sign-Out Receiving patient FROM: Samuel Valverde - At shift change 1900 - Discharge Plan Condition: Stable Disposition: ADMITTED TO [facility] - Billing Disposition and Condition Condition: STABLE Disposition: Admitted to [facility] - Attestation Statements Document Initiated by Hugh: Yes Documenting Scribe: Emmanuel Guerrero Provider For Whom Hugh is Documenting (Include Credential): Florina Valdivia MD Scribe Attestation: Emmanuel Jurado scribed for Florina Valdivia MD on 07/26/18 at 2306. Scribe Documentation Reviewed: Yes Provider Attestation: The documentation as recorded by the Emmanuel antonio accurately reflects the service I personally performed and the decisions made by Kelvin sy MD Status of Scribe Document: Viewed
--- NOTE | 2018-07-25 23:29 | HP ---
CC: Dr. David Priest * HISTORY AND PHYSICAL: DATE OF ADMISSION: 07/25/18 PRIMARY CARE PROVIDER: Dr. David Priest. ATTENDING PHYSICIAN: Dr. Lori Herron * (dictated by Gilda Guerra NP). CHIEF COMPLAINT: Shortness of breath and fall. HISTORY OF PRESENT ILLNESS: I will refer you to the discharge summary by KAYLA Andersen; but, in short, Mr. Sherman is an 88-year-old male with a past medical history of COPD, chronic kidney disease stage III, renal cell carcinoma, and prostate cancer, who presents today with shortness of breath after a fall. The patient was admitted to this facility from 07/09/18 to , and discharge diagnoses were dysphagia, aspiration pneumonia, lung nodule, severe protein-calorie malnutrition, and acute respiratory failure with hypoxia. The patient was discharged from the facility this morning around 9:30 with plans to sign on the hospice. He had been sent home with instruction to use 10 L of oxygen continuously. He returned home under the care of his friend and healthcare proxy, Maxim. The patient did well during the morning and a hospice nurse was in to see the patient midday around approximately at 2 p.m. The patient got up to go to the bathroom and fell. He remembers this fall and reports that one of his feet slipped off from under him. He fell on his buttocks and reports some left hip pain at this point but was unable to further describe the pain. He denies any head injury. Reportedly , the hospice nurse was concerned that the patient would not have enough support at home and so she recommended that the patient be brought in to the emergency room. The patient and his friend also felt that more likely be necessary as there was no way that they would be able to arrange 24x7 care within the next couple days. EMS was called and reportedly they witnessed a brief period of respiratory arrest with obvious respiratory distress. He was noted to be saturating in the mid 80s on a nonrebreather. In the emergency room , the patient was placed on 15 L of oxygen and has been maintaining saturations from 84% to 88%. In the emergency room, the patient is not able to give much history, as he is wearing a nonrebreather and he gets quite short of breath while talking. Does feel as though he was not safe to stay at home because he would have had a very little support over the weekend. He reports some mild left hip pain, although feels as though it is just "bruise" and he is declining an x-ray at this point. He has understanding of his diagnosis and prognosis, and does wish to proceed with hospice care. He would ideally like to be placed in the hospice resident, though understands that he may need to be placed in a assisted facility. In the emergency room, the patient had lab work, which was remarkable for leukocytosis and elevated troponin at 0.04, very mild hypokalemia. As noted above, he was turned up to 15 L to maintain saturation though on my exam is down to 10 L, saturating around 85%. He is additionally noted to be tachycardic though reports feeling generally comfortable at this point. Because of his fall and respiratory distress, the hospitalist service was asked to evaluate for admission. PAST MEDICAL HISTORY: 1. Acute hypoxic respiratory failure. 2. Severe protein-calorie malnutrition. 3. Dysphagia, requiring thickened liquids. 4. Aspiration pneumonia. 5. End-stage COPD. 6. Chronic kidney disease, stage III. 7. Renal cell carcinoma. 8. Prostate cancer. 9. Glaucoma. PAST SURGICAL HISTORY: 1. Left nephrectomy. 2. Splenectomy. 3. Left 11th rib removal. HOME MEDICATIONS: 1. Prednisone 30 mg x3 days then 20 mg x3 days then 10 mg x3 days. 2. Saliva substitute 1 spray q.6 hours. 3. Metamucil 1 pack p.o. daily p.r.n. 4. Pilocarpine 5 mg p.o. t.i.d. 5. Nicotine patch 25 mg transdermal daily. 6. Multivitamin 1 tab p.o. daily. 7. Latanoprost 1 drop both eyes daily. 8. Albuterol 2 puffs q.4 hours p.r.n. ALLERGIES: No known drug allergies. FAMILY HISTORY: No family history of heart disease, diabetes or cancer. SOCIAL HISTORY: The patient has a long smoking history and quit approximately 4 months ago. No alcohol or recreational drug use. He lives alone. His friend , Maxim Rivas, will be his surrogate decision maker in the event he is unable to make his own decisions. REVIEW OF SYSTEMS: An 11-point review of systems was performed, and all the pertinent positive and negative findings are in the HPI, all other systems are negative. PHYSICAL EXAMINATION GENERAL: Mr. Sherman is a cachectic white male, sitting in bed, in mild respiratory distress. He appears as his stated age. VITAL SIGNS: Temp 97.3, heart rate 110, respiratory rate 20, oxygen saturation 85% on 10 L, blood pressure 122/67. HEENT: Head is atraumatic, normocephalic. Extraocular movements are intact. Hearing is grossly intact. Oral mucous membranes are moist and without lesions. NECK: Trachea midline. RESPIRATORY: Symmetrical chest expansion. No chest wall deformities. Lungs severely diminished throughout. No rhonchi, wheezes or rubs. CARDIOVASCULAR: Regular, but tachycardic. S1, S2 present. No murmurs, rubs or gallops. No JVD. ABDOMEN: Soft, nontender to palpation. Bowel sounds normoactive throughout. EXTREMITIES: Skin warm and smooth bilaterally. +2 pitting edema to bilateral lower extremities. Pedal pulses 1+ bilaterally. NEUROLOGIC: Awake, alert, and oriented x4. Moves all extremities. DIAGNOSTIC STUDIES/LAB DATA: WBC 21.4, RBC 4.2, hemoglobin 12.9, hematocrit 39 , platelets 238. Sodium 146, potassium 3.4, chloride 107, carbon dioxide 30, BUN 30, creatinine 1.16, glucose 69, lactic acid 1.7, troponin 0.04. Chest x-ray shows opacities in bilateral bases. EKG shows sinus tachycardia with a rate of 113. ASSESSMENT AND PLAN: Mr. Sherman is an 88-year-old male with past medical history of end-stage chronic obstructive pulmonary disease, acute hypoxic respiratory failure, dysphagia, aspiration pneumonia, and chronic kidney disease , who signed on with hospice today and presented to the emergency room after a fall and resulting respiratory distress. The patient will be admitted inpatient for: 1. Acute respiratory failure. The patient became more short of breath after his fall, likely stress mediated response. He was noted to have respiratory arrest by EMS and at this point is requiring 10 to 15 L of oxygen to maintain saturations in the mid 80s. He does appear to have dyspnea on exam although reports feeling comfortable at this point. He did receive 1 dose of morphine at home for air hunger and reports that this was effective. I will continue morphine at this point and I have ordered IV and oral concentrate. I have additionally ordered Ativan should he require that. At this point, the patient does wish to remain on hospice/palliative care, so I will admit him with comfort care orders to reflect his wishes. 2. Fall. The patient is a high fall risk. He did report left hip pain after his fall, though is declining an x-ray of the hip at this point. I have advised him that if the hip pain becomes worse, he should let a provider know if he does want to proceed with an x-ray to assess for fracture. I will continue morphine as noted above. 3. Dysphagia and history of aspiration pneumonia. Based on the opacities in lower lung escobar, it is possible that the patient may have developed a new aspiration pneumonia though he does not want any treatment with antibiotics, so we will manage his symptoms. I have placed him on a comfort care diet with honey-thickened liquids, as this is what was recommended when he was previously seen by Speech Therapy. 4. FEN. The patient does not require any fluid resuscitation at this point. He did have a potassium of 3.4, though I will not replete him at this point as he is at comfort care. I have ordered a comfort care diet with honey-thickened liquids. 5. Code status. The patient will be a DNR/DNI. His previous MOLST indicated that he wanted a trial intubation though, I did discuss this at length with the patient and his healthcare proxy, and a new MOLST was filled out to reflect his DNR/DNI status. This MOLST was placed in the chart. 6. DVT prophylaxis. According to the DVT risk assessment, the patient scores a 6, putting him at highest risk. I will not put him on DVT prophylaxis at this point, as he is comfort care. TIME SPENT: Approximately 60 minutes was spent on this admission; greater than half of that time was spent [id number] with the patient and his caregiver obtaining my history, performing my physical exam, and reviewing the plan of care. This case has been discussed with my attending, Dr. Herron, who is in agreement with the plan of care. GILDA GUERRA, AMBULATORY ANALYST [id number]/[facility] #: [id number] CAROL
[2018-07-26] MEDS ORDERED: Travoprost Z 0.004% OPHTH (NF) 2.5 ML BTL BOTH EYES SCH (09:00)
[2018-07-26] MEDS: Nicotine PATCH 21 MG/24 HR* PATCH TRANSDERM SCH (10:10)
--- NOTE | 2018-07-26 11:51 | PN ---
Subjective Date of Service: 07/26/18 Interval History: Per RN patient asked to have his bed moved so he could look out the window. he denies any pain, he is making is needs known. he appears somewhat lethargic. Answers questions appropriately. he denies sob. Objective Active Medications: Acetaminophen (Tylenol Tab*) 650 mg PO Q4H PRN PRN Reason: FEVER/PAIN Albuterol/Ipratropium (Duoneb (Albuterol 2.5 Mg/Ipratropium 0.5 Mg)) 1 neb INH [id number] AWAKE PRN PRN Reason: sob/wheexing Latanoprost (Xalatan 0.005%*) 1 drop BOTH EYES QPM CLIVE Lorazepam (Ativan Inj*) 0.5 mg IV PUSH Q4H PRN PRN Reason: ANXIETY Miscellaneous (Ativan Pyxis Piedra) 1 ea N/A .ATIVAN IV PIEDRA PRN PRN Reason: PYXIS PIERDA Morphine Sulfate (Morphine Inj (Syringe))*) 2 mg IV Q4H PRN PRN Reason: Pain or air hunger Morphine Sulfate (Morphine Oral Concentrate*) 5 mg SL Q2H PRN PRN Reason: PAIN OR AIR HUNGER Nicotine (Nicotine Patch 21 Mg/24 Hr*) 1 patch TRANSDERM DAILY [facility] Last Admin: 07/26/18 10:10 Dose: 1 patch Ondansetron HCl (Zofran Inj*) 4 mg IV Q4H PRN PRN Reason: NAUSEA/VOMITING Vital Signs - 8 hr 07/26/18 07/26/18 08:13 08:51 Pulse Rate 101 Respiratory 20 20 Rate Blood Pressure 103/43 (mmHg) O2 Sat by Pulse 94 Oximetry Oxygen Devices in Use Now: Simple Face Mask Appearance: thin cachetic male sitting up in bed a+o to self and place Eyes: No Scleral Icterus, PERRLA Ears/Nose/Mouth/Throat: - - dry MM Respiratory: Symmetrical Chest Expansion and Respiratory Effort, Clear to Auscultation Cardiovascular: No Edema Abdominal: NL Sounds; No Tenderness; No Distention Lines/Tubes/Other Access: Clean, Dry and Intact Peripheral IV Nutrition: Taking PO's Result Diagrams: 07/25/18 19:07 07/25/18 19:07 Assess/Plan/Problems-Billing Assessment: 88 yo male with a PMH of end-stage COPD, chronic hypoxic respiratory failure, dysphagia, saspiration pneumonia, CKD who was hospitalized at [facility] [place] from 07/09/18 - 07/25/18 and was DC'd home on Hospice who was sent back to the hospital the same day by the Hospice nurse who felt there was an unsafe discharge plan, the caregiver was not able to provide 24/hr care which the patient required, the patient also had a fall at home, as well as on EMS arrival developed acute respiratory failure requiring 15L oxygen with O2 sat mid 80's and EMS reported the witnessed a brief period of almost apneic breathing. - Patient Problems (1) Comfort measures only status Comment: - supportive measures - morphine, ativan - oxygen prn - patient driven - ok if he wants to remove it - comfort care diet - Do not think he will survive the weekend (2) DNR (do not resuscitate) Status and Disposition: inpatient. I do not think the patient will survive this hospitalization, if he does survive the weekend placement at Hospice residence or in [facility].
[2018-07-26] MEDS: LORazepam INJ* 2 MG/ML 1 ML VIAL IV PUSH PRN ×3 (12:07→20:16)
[2018-07-26] MEDS: Morphine ORAL CONCENTRATE* 5 MG/0.25 ML ORAL.SYRIN SL PRN (12:25)
[2018-07-26] MEDS: Latanoprost 0.005%* 2.5 ml BTL BOTH EYES SCH (19:15)
[2018-07-26] MEDS: Morphine INJ* 2 MG/ML 1 ML SYRINGE (TWO MG - NEW SYRINGE VERSION) IV PRN (20:16)
[2018-07-27] MEDS: Morphine INJ* 2 MG/ML 1 ML SYRINGE (TWO MG - NEW SYRINGE VERSION) IV PRN ×2 (00:46→05:39)
[2018-07-27] MEDS: LORazepam INJ* 2 MG/ML 1 ML VIAL IV PUSH PRN ×3 (00:47→17:17)
[2018-07-27] MEDS: Nicotine PATCH 21 MG/24 HR* PATCH TRANSDERM SCH (10:36)
[2018-07-27] MEDS: Morphine ORAL CONCENTRATE* 5 MG/0.25 ML ORAL.SYRIN SL PRN ×2 (10:38→15:16)
--- NOTE | 2018-07-27 12:11 | PN ---
Subjective Date of Service: 07/27/18 Interval History: pt responding minimally - opens eyes slightly to voice- . when asked if he is comfortable he nods his head yes. he asked for the oxygen mask to be removed. not taking po. Objective Active Medications: Acetaminophen (Tylenol Tab*) 650 mg PO Q4H PRN PRN Reason: FEVER/PAIN Latanoprost (Xalatan 0.005%*) 1 drop BOTH EYES QPM CLIVE Last Admin: 07/26/18 19:15 Dose: Not Given Lorazepam (Ativan Inj*) 0.5 mg IV PUSH Q4H PRN PRN Reason: ANXIETY Last Admin: 07/27/18 05:40 Dose: 0.5 mg Miscellaneous (Ativan Pyxis Piedra) 1 ea N/A .ATIVAN IV PIEDRA PRN PRN Reason: PYXIS PIEDRA Morphine Sulfate (Morphine Inj (Syringe))*) 2 mg IV Q4H PRN PRN Reason: Pain or air hunger Last Admin: 07/27/18 05:39 Dose: 2 mg Morphine Sulfate (Morphine Oral Concentrate*) 5 mg SL Q2H PRN PRN Reason: PAIN OR AIR HUNGER Last Admin: 07/27/18 10:38 Dose: 5 mg Nicotine (Nicotine Patch 21 Mg/24 Hr*) 1 patch TRANSDERM DAILY [facility] Last Admin: 07/27/18 10:36 Dose: 1 patch Vital Signs - 8 hr 07/27/18 07/27/18 07/27/18 05:39 05:40 10:38 Respiratory 16 16 16 Rate Oxygen Devices in Use Now: Simple Face Mask Appearance: thin cachetic elderly male minimally responsive Ears/Nose/Mouth/Throat: - - dry mm Respiratory: Clear to Auscultation Cardiovascular: RRR, No Edema Lines/Tubes/Other Access: Clean, Dry and Intact Peripheral IV Result Diagrams: 07/25/18 19:07 07/25/18 19:07 Assess/Plan/Problems-Billing Assessment: 88 yo male with a PMH of end-stage COPD, chronic hypoxic respiratory failure, dysphagia, saspiration pneumonia, CKD who [place] [facility] [place] and was DC'd home on Hospice who was sent back to the hospital the same day by the Hospice nurse who felt there was an unsafe discharge plan, the caregiver was not able to provide 24/hr care which the patient required, the patient also had a fall at home, as well as on EMS arrival developed acute respiratory failure requiring 15L oxygen with O2 sat mid 80's and EMS reported the witnessed a brief period of almost apneic breathing. - Patient Problems (1) Comfort measures only status Comment: - Pt appears to be actively dying - supportive measures - morphine, ativan - oxygen prn - patient driven - ok if he wants to remove it - comfort care diet - Do not think he will survive the weekend (2) DNR (do not resuscitate) Status and Disposition: inpatient. I do not think the patient will survive this hospitalization, if he does survive the weekend placement at Hospice residence or in detention.
[2018-07-27] MEDS: Latanoprost 0.005%* 2.5 ml BTL BOTH EYES SCH (18:30)
[2018-07-28] MEDS: Morphine ORAL CONCENTRATE* 5 MG/0.25 ML ORAL.SYRIN SL PRN ×7 (07:50→19:17)
[2018-07-28] MEDS: Nicotine PATCH 21 MG/24 HR* PATCH TRANSDERM SCH (08:04)
--- NOTE | 2018-07-28 10:15 | PN ---
Subjective Date of Service: 07/28/18 Interval History: . Patient is unresponsive. Appears comfortable. Friend at bedside (Dentist/friend ) with the Irina . Objective Active Medications: Acetaminophen (Tylenol Tab*) 650 mg PO Q4H PRN PRN Reason: FEVER/PAIN Latanoprost (Xalatan 0.005%*) 1 drop BOTH EYES QPM [facility] Last Admin: 07/27/18 18:30 Dose: Not Given Lorazepam (Ativan Inj*) 0.5 mg IV PUSH Q4H PRN PRN Reason: ANXIETY Last Admin: 07/27/18 17:17 Dose: 0.5 mg Miscellaneous (Ativan Pyxis Piedra) 1 ea N/A .ATIVAN IV PIEDRA PRN PRN Reason: PYXIS PIEDRA Morphine Sulfate (Morphine Inj (Syringe))*) 2 mg IV Q4H PRN PRN Reason: Pain or air hunger Last Admin: 07/27/18 05:39 Dose: 2 mg Morphine Sulfate (Morphine Oral Concentrate*) 5 mg SL Q2H PRN PRN Reason: PAIN OR AIR HUNGER Last Admin: 07/28/18 09:43 Dose: 5 mg Nicotine (Nicotine Patch 21 Mg/24 Hr*) 1 patch TRANSDERM DAILY [facility] Last Admin: 07/28/18 08:04 Dose: Not Given Vital Signs - 8 hr 07/28/18 07/28/18 07:50 09:43 Respiratory 18 18 Rate Oxygen Devices in Use Now: None Appearance: cachetic elderly male laying in bed resting comfortably Respiratory: Symmetrical Chest Expansion and Respiratory Effort Cardiovascular: RRR Lines/Tubes/Other Access: Clean, Dry and Intact Peripheral IV Result Diagrams: 07/25/18 19:07 07/25/18 19:07 Assess/Plan/Problems-Billing Assessment: 88 yo male with a PMH of end-stage COPD, chronic hypoxic respiratory failure, dysphagia, saspiration pneumonia, CKD who was [place] [facility] [place] 07/25[place]18 and was DC'd home on Hospice who was sent back to the hospital the same day by the Hospice nurse who felt there was an unsafe discharge plan, the caregiver was not able to provide 24/hr care which the patient required, the patient also had a fall at home, as well as on EMS arrival developed acute respiratory failure requiring 15L oxygen with O2 sat mid 80's and EMS reported the witnessed a brief period of almost apneic breathing. - Patient Problems (1) Comfort measures only status Comment: - Pt appears to be actively dying - supportive measures - morphine, ativan - oxygen prn - patient driven - ok if he wants to remove it - comfort care diet - Do not think he will survive the weekend (2) DNR (do not resuscitate) Status and Disposition: inpatient. I do not think the patient will survive this hospitalization and should not be transported as fear of dying in transport
[2018-07-28 12:57] VITALS: BP 121/41
[2018-07-28] MEDS: Morphine INJ* 2 MG/ML 1 ML SYRINGE (TWO MG - NEW SYRINGE VERSION) IV PRN (17:37)
[2018-07-28] MEDS: Latanoprost 0.005%* 2.5 ml BTL BOTH EYES SCH (19:32)
--- NOTE | 2018-07-28 23:54 | DS ---
CC: Dr.. David Priest * DISCHARGE SUMMARY/ NOTE: DATE OF ADMISSION: 07/25/18 DATE OF EXPIRATION: 07/28/18 PRIMARY CARE PROVIDER: Dr. David Priest. MY ATTENDING WHILE IN THE HOSPITAL: Dr. Iona Everett.* (DICTATED BY KAYLA TANNER) HISTORY AND HOSPITAL COURSE: [facility] , the patient was an 88-year-old male with past medical history significant for COPD, severe protein-calorie malnutrition, dysphagia with aspiration pneumonia, who was recently admitted to the hospital for a long period of time, been evaluated for his respiratory failure. The patient was at that point discharged on hospice, but given his frequent falls while on hospice, he returned to the hospital for uncontrollable symptoms. The patient was placed on inpatient hospice, made comfortable with oxygen and morphine. The patient was made comfortable for 4 days and then on approximately 8 p.m. on 07/28/18. The patient had no close family members who were with him at that time. KAYLA TANNER [id number]/CPS #: [id number] MTDD
== END 2018-07-28 20:05 | disposition expired | DRG 862 ==
LOC: ED 18:10 → MED 20:03
PROVIDERS: ADMIT Internal Medicine; ATTEND Internal Medicine
DX: Z51.5 Encounter for palliative care (principal); J96.21 Acute and chronic respiratory failure with hypoxia; E43 Unspecified severe protein-calorie malnutrition; R64 Cachexia; C64.9 Malignant neoplasm of unspecified kidney, except renal pelvis; Z68.1 Body mass index [BMI] 19.9 or less, adult; J44.9 Chronic obstructive pulmonary disease, unspecified; R13.10 Dysphagia, unspecified; W18.30XA Fall on same level, unspecified, initial encounter; Z66 Do not resuscitate; E87.6 Hypokalemia; N18.3 Chronic kidney disease, stage 3 (moderate); C61 Malignant neoplasm of prostate; Y92.009 Unspecified place in unspecified non-institutional (private) residence as the place of occurrence of the external cause; Z91.81 History of falling; Z79.810 Long term (current) use of selective estrogen receptor modulators (SERMs); Z79.51 Long term (current) use of inhaled steroids; Z79.52 Long term (current) use of systemic steroids; Z79.899 Other long term (current) drug therapy; Z87.891 Personal history of nicotine dependence
CPT/HCPCS: 36415; 71045; 80053; 83605; 84484; 85025; 93005; 99285; A9270-GY; J2060; J2270; J7611